=== PATIENT | female | born 1950 | race Caucasian/White ===

== ENCOUNTER 2020-01-09 15:11 | Emergency (ER) | payer MEDICARE, SELFPAY ==
[2020-01-09 15:49] VITALS: BP 145/66; PULSE 102; TEMP 37.3; O2SAT 97
--- NOTE | 2020-01-09 16:10 | ED.GENADULT ---
HPI - General Adult General Chief complaint: Animal Bite Stated complaint: animal bite Time Seen by Provider: 01/09/20 16:10 Source: patient and RN notes reviewed Mode of arrival: ambulatory Limitations: no limitations History of Present Illness HPI narrative: 70-year-old female presents with complaints of 2 cat bites/scratched to RT dorsal hand with itching, swelling, tenderness, and redness for 1 day. Cleaned area with little relief. Increase redness throughout the day. Norma says she was playing with her cat last night andit bit and scratched her RT hand. Dominant hand is RIGHT HAND. Denies tingling or numbness. Denies immobility. No exacerbating factors. No relieving factors. Denies altered sensation, back pain, neck pain, and suspected foreign body. Remains active. Tetanus vaccine last in 2017, up-to-date. Familiar with cat says shoots are up to date. The patient reports she have not been diagnosed with COVID-19. The patient reports she is not waiting for the results of a COVID-19 lab test. The patient reports she do not have fever, chills, weakness, fatigue, myalgia, or facial swelling. The patient reports she do not have a new or worsening cough or shortness of breath. Denies chest pain. The patient reports she do not have any rhinorrhea, congestion, sore throat, nausea, vomiting, abdominal pain, and diarrhea. Tolerating po intake well. Denies recent traveling. Denies concerns for COVID-19 or exposures been home since [id number] order except for essential household needs and return home. At this time, patient is not suspected of having COVID-19. Some parts of this dictation were generated by voice recognition software and may contain typographical and/or grammatical inaccuracies. Related Data Home Medications Medication Instructions Recorded Confirmed albuterol sulfate 90 mcg/actuation 2 puff INHALATION Q4H PRN gm 09/18/19 aerosol inhaler diphenoxylate-atropine 2.5 2 tablet PO QID PRN tablet 09/18/19 mg-0.025 mg tablet fluticasone 250 mcg-salmeterol 50 1 inhalation INHALATION BID 09/18/19 mcg/dose blistr powdr for inhalation gemfibrozil 600 mg tablet 600 mg PO BID 09/18/19 01/09/20 hydroxychloroquine 200 mg tablet 200 mg PO Q2D tablet 09/18/19 01/09/20 quinapril 10 mg tablet 10 mg PO DAILY 09/18/19 01/09/20 tamoxifen 20 mg tablet 20 mg PO DAILY 09/18/19 01/09/20 tizanidine 4 mg tablet 4 mg PO .hs PRN tablet 09/18/19 01/09/20 tramadol 50 mg tablet 50 mg PO Q6H PRN 09/18/19 01/09/20 pantoprazole 20 mg tablet,delayed 20 mg PO BID tablet 09/19/19 01/09/20 release gemfibrozil mg 01/09/20 Allergies Allergy/AdvReac Type Severity Reaction Status Date / Time aspirin Allergy Intermediate Swelling Verified 09/19/19 10:28 levofloxacin Allergy Intermediate Numbness Verified 09/19/19 10:28 ibuprofen Allergy Mild Rash Verified 09/19/19 10:28 meperidine Allergy Mild Itching Verified 09/19/19 10:28 oxaprozin Allergy Mild itching, Verified 09/19/19 10:28 hives ramipril Allergy Mild heart Verified 09/19/19 10:28 racing Cephalosporins Allergy Itching Verified 01/09/20 15:59 hydrocodone AdvReac Mild itching Verified 09/19/19 10:28 CILLEN'S Allergy Mild RASH Uncoded 09/19/19 10:28 Review of Systems Review of Systems: Narrative: CONSTITUTIONAL: Denies fever, chills, sweats. EYES: Denies visual changes, redness, discharge. ENT: Denies rhinorrhea, congestion, sore throat, otalgia. CARDIOVASCULAR: Denies chest pain, palpitations, edema. RESPIRATORY: Denies dyspnea, wheezing, cough. GASTROINTESTINAL: Denies abdominal pain, nausea, vomiting, diarrhea. GENITOURINARY: Denies dysuria, hematuria, abnormal discharge. SKIN: Denies rash or itching. Complains of 2 cat bites/scratched to RT dorsal hand with itching, swelling, tenderness, and redness. No drainage MUSCULOSKELETAL: Denies acute back pain, joint pain, or myalgia. NEUROLOGIC: Denies numbness or focal weakness. PSYCHIATRIC: Denies anxiety or
== END 2020-01-09 16:27 | disposition home or self-care (01) ==
PROVIDERS: Emergency Provider Nurse Practitioner Family; PCP Internal Medicine
DX: S60.511A Abrasion of right hand, initial encounter (principal); E78.00 Pure hypercholesterolemia, unspecified; M19.90 Unspecified osteoarthritis, unspecified site; J45.909 Unspecified asthma, uncomplicated; Z77.22 Contact with and (suspected) exposure to environmental tobacco smoke (acute) (chronic); Z85.3 Personal history of malignant neoplasm of breast; Z92.3 Personal history of irradiation; W55.03XA Scratched by cat, initial encounter; I10 Essential (primary) hypertension
CPT/HCPCS: 99213; G0463

== ENCOUNTER 2020-05-09 08:00 | Outpatient (CLI) | payer MEDICARE, SELFPAY ==
--- NOTE | ~2020-05-09 | US_ITS ---
EXAMINATION: US art doppler w press LE BI EXAM DATE: 05/09/2020 08:51 INDICATION: Hypertension, claudication at one block, 5 to 10 minute recovery time. TECHNIQUE: Segmental pressures and plethysmographic and Doppler waveforms of the brachial and lower e xtremity arteries were obtained. There is no prior study for comparison. FINDINGS: Right and left brachial artery pressures of 128 mm Hg and 143 mm Hg, respectively, are concordant (no rmal difference <= 30 mmHg). RIGHT LEG: The ankle-brachial index (AYAAN) is 1.04 (normal >= 0.9-1). The great toe-brachial index (TBI) is 0.99 (normal >= 0.65). The lower extremity ratios, segmental pressure gradients as follows; Proximal superficial femoral artery:- Could not obtain ( mmHg). Distal superficial femoral artery: ----- 1.01 (145 mmHg). Popliteal: 1.21 (173 mmHg). Dorsalis pedis: 1.04 (149 mmHg). Posterior tibial: 1.01 (144 mmHg). (Normal gradients <= 20-30 mmHg between adjacent levels on the same leg or the same levels on the two legs). Arterial waveforms are monophasic dorsalis pedis, otherwise biphasic. LEFT LEG: The ankle-brachial index (AYAAN) is 1.22 (normal >= 0.9-1). The great toe-brachial index (TBI) is 0.75 (normal >= 0.65). The lower extremity ratios, segmental pressure gradients as follows; Proximal superficial femoral artery:- Could not obtain ( mmHg). Distal superficial femoral artery: ----- Could not obtain ( mmHg). Popliteal: Could not obtain ( mmHg). Dorsalis pedis: 0.45 (65 mmHg). Posterior tibial: 1.22 (174 mmHg). (Normal gradients <= 20-30 mmHg between adjacent levels on the same leg or the same levels on the two legs). Arterial waveforms are monophasic dorsalis pedis, otherwise biphasic. IMPRESSION: 1. Right ankle-brachial index 1.04, normal. 2. Left ankle-brachial index 1.22, normal. 3. Evidence of moderate left dorsalis pedis arterial sclerosis. Reviewed, dictated and finalized at location A.
== END 2020-05-09 08:01 | disposition home or self-care (01) ==
PROVIDERS: PCP Internal Medicine; Visit Provider Internal Medicine
DX: I73.9 Peripheral vascular disease, unspecified (principal); M79.669 Pain in unspecified lower leg
CPT/HCPCS: 93923

== ENCOUNTER 2020-06-26 08:07 | Outpatient (CLI) | payer MEDICARE, SELFPAY ==
--- NOTE | ~2020-06-26 | MR_ITS ---
EXAMINATION: MR hip RT wo con, MR hip LT wo con DATE: 06/26/2020 10:58 INDICATION: Chronic bilateral hip pain. Right trochanteric bursitis. TECHNIQUE: 1. Magnetic resonance imaging (MRI) of the right hip was performed without intravenous contrast. Sequ ences included full-field axial of the pelvis with PD-weighted FS FSE and T1-weighted FSE, coronal of the pelvis with PD-weighted FS FSE and T2-weighted FSE , small field of view of the right hip with axial PD-weighted FS FSE, sagittal PD-weighted FS FSE, coronal PD weighted FS FSE and coronal T2-weig hted FSE . Additional radial T1-weighted FGR oriented orthogonal to the acetabular rim were obtained for evaluation of the labrum. 2. MRI of the left hip was performed without intravenous contrast. Sequences included small field of view of the left hip with axial PD-weighted FS FSE, sagittal PD-weighted FS FSE, coronal PD weighted FS FSE and coronal T2-weighted FSE . Additional radial T1-weighted FGR oriented orthogonal to the oralia tabular rim were obtained for evaluation of the labrum. COMPARISON: None FINDINGS: Bones/labrum/cartilage: Mild lumbar levoscoliosis with mild to moderate spondylosis. This includes severe bilateral facet ost eoarthritis at L5-S1 with inflammatory synovitis at the right L5-S1 facet joint. No fracture, avascul ar necrosis or pathologic marrow replacing process. At the left hip there is a delaminating tear at t he chondral labral junction extending from the 12:30 position anteriorly to the 11:00 position global professional iorly. There is secondary degenerative tearing of the more peripheral labrum. Small left acetabular m arginal osteophytes which extend into the posterolateral labrum. Mild left hip osteoarthritis with pa rtial thickness cartilage loss with smooth chondral surface resulting in mild nonuniform joint space narrowing most prominent anterosuperiorly and posteriorly. Nearly identical pattern of labral tear/de generation and mild osteoarthritis at the right hip. Fluid: Symmetric physiologic amount of fluid within both hip joints. Soft tissues: Normal and symmetric muscle bulk and signal in the pelvis and visualized proximal thighs. The bilater al iliopsoas, right proximal hamstring tendons are normal. There is mild tendinopathy without discret e tear of the proximal left hamstring tendons with small amount of fluid at their origin consistent w ith mild left ischial bursitis. There is additional small amount of fluid at the posterior superior a nd lateral facets of the right greater trochanter and to lesser degree at the lateral facet of the le ft greater trochanter consistent with bilateral gluteus medius bursitis, right greater than left. The re is mild tendinopathy without discrete tear at the left gluteus medius and bilateral gluteus minimu s tendons. Moderate tendinopathy and mild partial-thickness undersurface tear of the right gluteus me dius tendon at the lateral facet of insertion. Multiple diverticula along the sigmoid colon without a djacent inflammatory change to suggest diverticulitis. The uterus is not identified and has likely be en surgically resected. No pathologically enlarged pelvic/inguinal lymphadenopathy. IMPRESSION: 1. Bilateral mild hip osteoarthritis with associated superolateral labral tear/degeneration. 2. Mild to moderate right radius medius bursitis with moderate tendinopathy and mild partial thicknes s undersurface tear of the distal right gluteus medius tendon. Mild right gluteus minimus tendinopath y. 3. Mild left gluteus medius bursitis with mild left gluteus medius and minimus tendinopathy without d iscrete tear. 4. Mild lumbar levoscoliosis with mild to moderate spondylosis. Reviewed, dictated and finalized at location H. T ORDER COOK IMPRESSION: 1. Bilateral mild hip oste
== END 2020-06-26 08:08 | disposition home or self-care (01) ==
PROVIDERS: PCP Internal Medicine; Visit Provider Orthopaedic Surgery
DX: M70.61 Trochanteric bursitis, right hip (principal); M70.62 Trochanteric bursitis, left hip; M16.0 Bilateral primary osteoarthritis of hip
CPT/HCPCS: 73721

== ENCOUNTER 2021-06-05 11:30 | Outpatient (RCR) | payer MEDICARE, SELFPAY ==
[2021-06-05] MEDS: diphenhydrAMINE HCl CAP 25 MG CAPSULE PO (12:06)
[2021-06-05] MEDS: FAMOTIDINE 20 MG TABLET PO (12:06)
[2021-06-05] MEDS: ACETAMINOPHEN 325 MG TABLET 650 MG PO (12:06)
[2021-06-05 12:26] VITALS: BP 155/71; PULSE 87; RESP 18; TEMP 36.6; O2SAT 97
[2021-06-05 13:23] VITALS: BP 133/58
== END 2021-06-05 15:47 | disposition home or self-care (01) ==
LOC: AMCINF 11:30
PROVIDERS: PCP Physician Assistant; Referring Provider Physician Assistant; Visit Provider Internal Medicine Hematology & Oncology
DX: Z23 Encounter for immunization (principal); U07.1 COVID-19; I10 Essential (primary) hypertension
CPT/HCPCS: A9270; M0243; Q0243

== ENCOUNTER 2021-12-09 10:59 | Outpatient (CLI) | payer MEDICARE, SELFPAY ==
[2021-12-09 11:51] LABS: Appearance Urine Cloudy (Clear); Bilirubin Urine Negative (Negative); Color Urine Yellow (Yellow); Glucose Urine UA Negative (Negative); Ketones Urine Negative (Negative); Leukocyte Esterase Ur 2+ LEU/UL (Negative); Nitrate Urine Negative (Negative); Protein Urine Negative (Negative); Specific Grav Ur 1.015 (1.001-1.035); Urobilinogen Urine 0.2 mg/dL (<2.0)
[2021-12-09 12:02] LABS: Add Urine Microscopic? YES; Blood Urine Trace-Intact (Negative)
[2021-12-09 12:04] LABS: Squamous Epithelial Cell Urine Moderate /hpf (Few); WBC Urine >75 /hpf
== END 2021-12-09 11:00 | disposition home or self-care (01) ==
LOC: ANHLAB 11:02
PROVIDERS: PCP Internal Medicine; Visit Provider Internal Medicine
DX: R30.0 Dysuria (principal)
CPT/HCPCS: 81001; 87077; 87086; 87186

== ENCOUNTER 2022-08-26 14:18 | Outpatient (CLI) | payer MEDICARE, SELFPAY ==
[2022-08-26 15:31] LABS: Basophils Percent Auto 0.5 % (0.2-1.2); Eosinophils Absolute Auto 0.2 K/mm3 (0-0.3); Eosinophils Percent Auto 3.9 % (0-4.4); Hematocrit 40.2 % (37.0-47.0); Hemoglobin 13.4 g/dL (12.0-15.0); Immature Granulocyte Absolute 0.01 K/mm3 (0.00-0.031); Immature Granulocyte Percent A 0.2 % (0-0.5); Lymphocytes Absolute Auto 1.79 K/mm3 (0.9-3.2); Mean Corpuscular HGB Conc 33.3 g/dl (32-36); Mean Corpuscular Hemoglobin 29.8 pg (26-34); Mean Corpuscular Volume 89.5 fl (80-100); Mean Platelet Volume 10.7 fl (7.4-10.4); Monocytes Absolute Auto 0.7 K/mm3 (0.1-0.6); Monocytes Percent Auto 11.6 % (2.6-8.5); Neutrophils Absolute Auto 3.2 K/mm3 (1.3-6.7); Neutrophils Percent Auto 53.8 % (45.5-73.1); Platelet Count Result 234 k/mm3 (150-375); Red Blood Count 4.49 M/mm3 (4.2-5.4); Red Cell Distribution Width 13.7 % (11.5-14.5)
[2022-08-26 15:44] LABS: Alanine Aminotransferase 33 U/L (6-35); Albumin Level 4.1 g/dL (3.5-5.1); Alkaline Phosphatase 93 U/L (38-126); Anion Gap 8 mmol/L (8-16); Aspartate Amino Transferase 34 U/L (14-36); Bilirubin,Total 0.4 mg/dL (0.2-1.3); Blood Urea Nitrogen 17 mg/dL (7-17); Calcium 9.1 mg/dL (8.4-10.2); Carbon Dioxide 29 mmol/L (22-30); Chloride 104 mmol/L (98-107); Estimated Glomerular Filt Rate > 60; Glucose 119 mg/dL (65-110); Potassium 3.7 mmol/L (3.4-5.0); Sodium 141 mmol/L (137-145)
[2022-08-26 16:48] LABS: Folic Acid > 20.0 ng/mL (2.76->20)
[2022-08-26 21:35] LABS: T4 Thyroxine 7.35 ug/dL (5.53-11.0)
== END 2022-08-26 14:19 | disposition home or self-care (01) ==
PROVIDERS: PCP Internal Medicine; Visit Provider Psychiatry & Neurology Neurology
DX: M25.551 Pain in right hip (principal); M25.552 Pain in left hip; R30.0 Dysuria; I10 Essential (primary) hypertension
CPT/HCPCS: 36415; 80053; 82607; 82746; 84436; 85025

== ENCOUNTER → 2022-09-15 14:11 | Outpatient (CLI) | payer MEDICARE, SELFPAY ==
--- NOTE | ~2022-09-15 | MR_ITS ---
EXAMINATION: MR lumbar spine wo con DATE: 09/15/2022 14:47 INDICATION: Low back pain. Right leg numbness. TECHNIQUE: Magnetic resonance imaging (MRI) of the lumbar spine was performed without intravenous con trast. Sequences included sagittal T2-weighted FSE, sagittal T2-weighted FS FSE, sagittal T1-weighted FSE, and axial T2-weighted FSE. COMPARISON: Lumbar spine MRI 10/10/2017 FINDINGS: There is 7 degrees levocurvature of lumbar spine. Vertebral body heights are normal. There is mildly decreased disc height at L2-L3, L3-L4, and L4-L5. The distal spinal cord signal intensity i s normal. The conus medullaris is at T12-L1. The following disc levels are specifically discussed: T12-L1: There is a central extrusion. There is mild bilateral facet joint osteoarthritis. There is no neural foraminal stenosis. There is mild central canal stenosis. L1-L2: There is a central protrusion. There is mild bilateral facet joint osteoarthritis. There is no neural foraminal stenosis. There is no central canal stenosis. L2-L3: The disc is bulging and has an annular fissure. There is severe right and mild left facet join t osteoarthritis. There is mild bilateral neural foraminal stenosis. There is mild central canal sten osis. L3-L4: The disc is bulging and has an annular fissure. There is mild bilateral facet joint osteoarthr itis. There is mild bilateral neural foraminal stenosis. There is mild central canal stenosis. L4-L5: The disc is bulging and has an annular fissure. There is severe right and moderate left facet joint osteoarthritis. There is mild bilateral neural foraminal stenosis. There is mild central canal stenosis. L5-S1: The disc is bulging and has an annular fissure. There is moderate right and severe left facet joint osteoarthritis. There is mild bilateral neural foraminal stenosis. There is no central canal st enosis. IMPRESSION: 1. Mild lumbar spondylosis, stable from 10/10/2017. Reviewed, dictated and finalized at location A. ORMANCE IMPROVEMENT ANALYST
== END ==
PROVIDERS: PCP Internal Medicine; Visit Provider Psychiatry & Neurology Neurology
DX: M47.896 Other spondylosis, lumbar region (principal)
CPT/HCPCS: 72148

== ENCOUNTER 2022-09-29 11:15 | Outpatient (CLI) | payer MEDICARE, SELFPAY ==
--- NOTE | ~2022-09-29 | XR_ITS ---
XR shoulder RT min 2V 09/29/2022 11:38 Indication: Right shoulder pain. Procedure: 4 views right shoulder Comparison: No prior studies for comparison. Findings: There is polyarticular osteoarthritis of the right shoulder. Osteopenia. No acute fracture or traumatic malalignment. No significant soft tissue abnormality. No foreign bodies. Impression: 1: Polyarticular osteoarthritis of the right shoulder. Reviewed, dictated and finalized at location B. S Impression: 1: Polyarticular osteoarthritis of the right shoulder.
== END 2022-09-29 11:16 | disposition home or self-care (01) ==
LOC: ANHIMG 11:17
PROVIDERS: PCP Internal Medicine; Visit Provider Internal Medicine
DX: M19.011 Primary osteoarthritis, right shoulder (principal)
CPT/HCPCS: 73030

== ENCOUNTER 2022-10-27 10:01 | Outpatient (CLI) | payer MEDICARE, SELFPAY ==
--- NOTE | 2022-10-27 11:00 | NEURO_ITS ---
Impression: # Complains of lower back pain. # No responses from left peroneal nerve. # Needle/EMG exam revealed decreased motor unit potentials on left. # Clinical correlation recommended; Possibility of higher involvement needs to be ruled out. Motor Nerve Conduction Lower Extremities Peroneal Nerve Conduction Velocity (m/sec) Terminal Latency (msec) Response Voltage(mV) Popliteal space-Ankle Ankle Extensor Dig Brevis Popliteal space Ankle Right 41 4.8 2 2 Left NR NR NR NR Tibial Nerve Conduction Velocity (m/sec) Terminal Latency (msec) Response Voltage(mV) Popliteal space-Ankle Ankle-Extensor Dig Brevis Popliteal space Ankle Right 44 4.5 1 1 Left 43 4.8 3 2 F-waves Peroneal Nerve (ms) Tibial Nerve (ms) Right 57.3 57.1 Left 58.4 58.8 Right Lateral Plantar = 4.2ms Left Lateral Plantar = 4.5ms Sensory Nerve Conduction Lower Extremities Sural Nerve Stimulation Terminal Latency (msec) Ankle Response Voltage (uV) Ankle Response Velocity (m/sec) Right 3.7 13 43 Left 3.4 4 47 Superficial Peroneal Nerve Stimulation Terminal Latency (msec) Ankle Response Voltage (uV) Ankle Response Velocity (m/sec) Right 3.5 7 46 Left 3.5 4 48 Left Right Muscles Examined Fibrillation Fasciculation Scarcity Voltage Duration Left Right Left Right Left Right Left Right Left Right X X Ant Tibialis X X Gastroc X X Fibularis Long X X Flex Dig Long X X Ext Dig Brev Abd Hallucis Quadriceps Paraspinals MTDD
== END 2022-10-27 10:02 | disposition home or self-care (01) ==
LOC: ANHNEURO 10:02
PROVIDERS: PCP Internal Medicine; Visit Provider Psychiatry & Neurology Neurology
DX: M54.9 Dorsalgia, unspecified (principal)
CPT/HCPCS: 95886; 95911

== ENCOUNTER 2023-01-18 08:58 | Outpatient (CLI) | payer MEDICARE, SELFPAY ==
--- NOTE | 2023-01-18 11:00 | NEURO_ITS ---
Impression: # Complains of left hand numbness with decreasing strength. # Left ulnar neuropathy around the elbow. # Normal needle/EMG exam. Nerve Conduction Studies Anti Sensory Summary Table Stim Site NR Peak (ms) P-T Amp (?V) Site1 Site2 Delta-P (ms) Dist (cm) Daniel (m/s) Left Median Anti Sensory (2-3nd Digit) Wrist 3.3 67.4 Wrist 2-3nd Digit 3.3 14.0 42 Wrist 3.2 89.8 Wrist 2-3nd Digit 3.3 14.0 42 Left Radial Anti Sensory (Base 1st Digit) Wrist 2.0 23.3 Wrist Base 1st Digit 2.0 0.0 Left Ulnar Anti Sensory (5th Digit) Wrist 2.4 41.5 Wrist 5th Digit 2.4 14.0 58 Motor Summary Table Stim Site NR Onset (ms) O-P Amp (mV) Site1 Site2 Delta-0 (ms) Dist (cm) Daniel (m/s) Left Median Motor (Abd Poll Brev) Wrist 3.3 2.2 Elbow Wrist 4.7 27.0 57 Elbow 8.0 1.8 Left Ulnar Motor (Abd Dig Minimi) Wrist 2.3 6.2 A Elbow Wrist 5.7 29.0 51 A Elbow 8.0 2.8 B Elbow Wrist 4.0 20.0 50 B Elbow 6.3 4.0 F Wave Studies NR F-Lat (ms) L-R F-Lat (ms) Left Median (Mrkrs) (Abd Poll Brev) 28.01 Left Ulnar (Mrkrs) (Abd Dig Min) 28.01 EMG Side Muscle Nerve Root Ins Act Fibs Amp Dur Recrt Comment Left 1stDorInt Ulnar C8-T1 Nml Nml Nml Nml Nml Left Ext Indicis Radial (Post Int) C7-8 Nml Nml Nml Nml Nml Left Ext Digitorum Radial (Post Int) C7-8 Nml Nml Nml Nml Nml Left BrachioRad Radial C5-6 Nml Nml Nml Nml Nml Left PronatorTeres Median C6-7 Nml Nml Nml Nml Nml Left Abd Poll Brev Median C8-T1 Nml Nml Nml Nml Nml Left ABD Dig Min Ulnar C8-T1 Nml Nml Nml Nml Nml MTDD
== END 2023-01-18 08:59 | disposition home or self-care (01) ==
PROVIDERS: PCP Internal Medicine; Referring Provider Student in an Organized Health Care Education/Training Program
DX: G56.02 Carpal tunnel syndrome, left upper limb (principal); M25.551 Pain in right hip; M25.552 Pain in left hip
CPT/HCPCS: 36415; 82728; 95886; 95909

== ENCOUNTER 2023-04-08 09:53 | Outpatient (CLI) | payer MEDICARE, SELFPAY ==
--- NOTE | ~2023-04-08 | XR_ITS ---
Left Knee Technique: AP, lateral, and sunrise views were obtained. Clinical History: Osteoarthritis Findings: No fracture or dislocation is seen. Osseous alignment is anatomic. There is degenerative sp urring at the medial joint line. Soft tissues are unremarkable. No joint effusion is seen. Impression: Degenerative spurring at the medial joint line. Reviewed, dictated and finalized at location . Impression: Degenerative spurring at the medial joint line.
--- NOTE | ~2023-04-08 | XR_ITS ---
Right Knee Technique: AP, lateral, and sunrise views were obtained. Clinical History: Posterior arthritis Findings: No fracture or dislocation is seen. Osseous alignment is anatomic. There is mild spurring a t the medial joint line. Soft tissues are unremarkable. No joint effusion is seen. Impression: Mild spurring at the medial joint line. Reviewed, dictated and finalized at location . Impression: Mild spurring at the medial joint line.
== END 2023-04-08 09:54 | disposition home or self-care (01) ==
LOC: ANHIMG 09:57
PROVIDERS: PCP Internal Medicine; Visit Provider Orthopaedic Surgery
DX: M17.0 Bilateral primary osteoarthritis of knee (principal)
CPT/HCPCS: 73564

== ENCOUNTER 2023-06-13 14:59 | Outpatient (CLI) | payer MEDICARE, SELFPAY ==
--- NOTE | ~2023-06-13 | CT_ITS ---
Non-contrast Head CT History: Headache Technique: Axial non-contrast imaging of the brain was performed. Dose reduction technique was used on this scan by utilizing automated exposure control and iterative reconstruction technique. The dose -length product (DLP) was 529.67 mGy-cm. Findings: There is no evidence of intracranial hemorrhage, mass lesion, or acute infarct. Brain par enchyma appears normal. The ventricles and subarachnoid spaces are normal in size. The calvarium ap pears normal. The visualized paranasal sinuses and mastoid air cells are clear. Impression: No significant abnormality seen. Reviewed, dictated and finalized at location . SPORT ENGINEER Impression: No significant abnormality seen.
== END 2023-06-13 15:00 | disposition home or self-care (01) ==
LOC: ANHIMG 15:01
PROVIDERS: PCP Internal Medicine; Visit Provider Physician Assistant
DX: R51.9 Headache, unspecified (principal)
CPT/HCPCS: 70450

== ENCOUNTER 2023-08-12 14:59 | Outpatient (CLI) | payer MEDICARE, SELFPAY ==
--- NOTE | ~2023-08-12 | XR_ITS ---
XR wrist LT min 3V DATE: 08/12/2023 15:20 INDICATION: Swelling and pain around the scaphoid TECHNIQUE: 4 views COMPARISON: None FINDINGS: There is mild small focal cortical irregularity/indentation of the distal lateral aspect of the scaphoid bone, which is most likely chronic. A subtle recent fracture is not excluded. If there is concern for scaphoid fracture Comment consider CT or MR breast examination. Otherwise no fracture or dislocation is detected. There is osteopenia. There is mild osteoarthritis at the first carpometacarpal and several metacarpophalangeal joints IMPRESSION: Mild small focal cortical irregularity at distal lateral aspect of navicular bone; if the re is concern for recent fracture, consider CT or MR evaluation Osteopenia Mild polyarticular osteoarthritis Reviewed, dictated and finalized at location B. T MINISTRIES DIRECTOR IMPRESSION: Mild small focal cortical irregularity at distal lateral aspect of navicular bone; if there is concern for recent fracture, consider CT or MR eval uation Osteopenia Mild polyarticular osteoarthritis
== END 2023-08-12 15:00 | disposition home or self-care (01) ==
LOC: ANHIMG 15:03
PROVIDERS: PCP Internal Medicine; Visit Provider Physician Assistant
DX: M79.89 Other specified soft tissue disorders (principal); M89.9 Disorder of bone, unspecified; M85.88 Other specified disorders of bone density and structure, other site; M19.032 Primary osteoarthritis, left wrist
CPT/HCPCS: 73110

== ENCOUNTER 2023-09-14 10:11 | Emergency (ER) | payer MEDICARE, SELFPAY ==
[2023-09-14 10:24] VITALS: BP 150/69; PULSE 87; RESP 16; TEMP 37.2; O2SAT 97
--- NOTE | 2023-09-14 10:29 | ED.URI ---
HPI - URI/Sore Throat General Chief Complaint: Upper Respiratory Infection Stated Complaint: Sore Throat Time Seen by Provider: 09/14/23 10:30 Source: patient Mode of arrival: ambulatory Limitations: no limitations History of Present Illness HPI Narrative: 73-year-old female presents with complaint of sore throat, postnasal drainage, congestion, mild cough starting yesterday. Afebrile. No chest pain or shortness of breath. Denies nausea vomiting diarrhea. Taking Robitussin to treat cough. All systems reviewed and negative except as noted above. Related Data Home Medications Medication Instructions Recorded Confirmed hydroxychloroquine 200 mg tablet 200 mg PO Q2D 09/18/19 09/14/23 gemfibrozil 600 mg tablet (Lopid) 600 mg PO BID 11/04/22 09/14/23 nitrofurantoin macrocrystal 100 mg 100 mg PO Q12H 06/08/23 09/14/23 capsule Allergies Allergy/AdvReac Type Severity Reaction Status Date / Time aspirin Allergy Intermediate Swelling Verified 09/14/23 10:40 levofloxacin Allergy Intermediate Numbness Verified 09/14/23 10:40 ibuprofen Allergy Mild Rash Verified 09/14/23 10:40 meperidine Allergy Mild Itching Verified 09/14/23 10:40 oxaprozin Allergy Mild itching, Verified 09/14/23 10:40 hives ramipril Allergy Mild heart Verified 09/14/23 10:40 racing Cephalosporins Allergy Itching Verified 09/14/23 10:40 hydrocodone AdvReac Mild itching Verified 09/14/23 10:40 CILLEN'S Allergy Mild RASH Uncoded 09/14/23 10:40 Review of Systems Review of Systems: CONSTITUTIONAL: Denies fever, chills, or sweats. EYES: Denies visual changes, redness, or discharge. ENT: Reports rhinorrhea, congestion, sore throat. Denies otalgia. CARDIOVASCULAR: Denies chest pain, palpitations, or edema. RESPIRATORY reports cough . Denies dyspnea. GASTROINTESTINAL: Denies abdominal pain, nausea, vomiting, or diarrhea. GENITOURINARY: Denies dysuria or hematuria. SKIN: Denies rash or itching. MUSCULOSKELETAL: Denies back pain, joint pain, or myalgia. NEUROLOGIC: Denies headache, numbness, or weakness. PSYCHIATRIC: Denies anxiety or depression. All other systems reviewed are negative, except as documented in HPI. [facility] Past Medical History Medical History Breast cancer RT breast received radiation History of tennis elbow History of trigger finger thumb - surgery Hyperglycemia Hypertension Lymph edema LEWIS (nonalcoholic steatohepatitis) Other dorsalgia Plantar fasciitis Primary osteoarthritis of left hip Primary osteoarthritis of right knee Pure hypercholesterolemia Rheumatoid arthritis Unspecified asthma, uncomplicated Unspecified cirrhosis of liver Surgical History Surgical History History of appendectomy History of back surgery History of bladder repair surgery History of carpal tunnel surgery History of cholecystectomy History of hernia repair History of hysterectomy History of lumpectomy of right breast Hx of laminectomy Family History Family History Father Diabetes mellitus Mother Hypertension Cancer of kidney Social History Social History Smoking status: Never smoker Tobacco type: cigarettes Second hand tobacco smoke exposure: Yes Alcohol intake: former Substance use: never Substance use type: does not use Lack of Transportation: No Lack of Food: Never True Current Housing: I Have Housing Concerned About Future Housing: No Difficulty Paying Gas/Electric Bills: No Difficulty Paying for Meds: No Currently Unemployed: No Education: High School Diploma/GED Difficulty w/ Childcare or Family Care: No Living arrangements: with family Occupation/Education: retired Gender identity (if verbalized by the patient): Female Spiritual care c
[2023-09-14 10:42] VITALS: BP 150/69; PULSE 87; RESP 16; TEMP 37.2; O2SAT 97
== END 2023-09-14 10:50 | disposition home or self-care (01) ==
PROVIDERS: Emergency Provider Nurse Practitioner Family; PCP Internal Medicine
DX: J06.9 Acute upper respiratory infection, unspecified (principal); R05.9 Cough, unspecified; Z20.822 Contact with and (suspected) exposure to COVID-19; I10 Essential (primary) hypertension; K75.81 Nonalcoholic steatohepatitis (NASH); M16.12 Unilateral primary osteoarthritis, left hip; M17.11 Unilateral primary osteoarthritis, right knee; E78.00 Pure hypercholesterolemia, unspecified; M06.9 Rheumatoid arthritis, unspecified; K74.60 Unspecified cirrhosis of liver; Z85.3 Personal history of malignant neoplasm of breast; Z90.11 Acquired absence of right breast and nipple; Z92.3 Personal history of irradiation
CPT/HCPCS: 87081; 87426; 87804; 87880; 99213; G0463

== ENCOUNTER 2023-12-14 08:50 | Outpatient (CLI) | payer MEDICARE, SELFPAY ==
--- NOTE | ~2023-12-14 | XR_ITS ---
EXAMINATION: XR hip BI 2V w AP pelvis DATE: 12/14/2023 09:28 INDICATION: Trochanteric bursitis. TECHNIQUE: An anteroposterior view of the pelvis on 2 radiographs and 2 views of each hip were obtain ed. COMPARISON: Pelvis and hip radiographs 11/04/2022 FINDINGS: There is lumbar levocurvature and severe spondylosis. No fracture. There is mild osteoarthr itis of the hips. IMPRESSION: 1. Mild osteoarthritis of the hips. Reviewed, dictated and finalized at location A.
[2023-12-14 10:03] LABS: Basophils Percent Auto 0.3 % (0.2-1.2); Eosinophils Absolute Auto 0.2 K/mm3 (0-0.3); Eosinophils Percent Auto 3.2 % (0-4.4); Hematocrit 39.2 % (37.0-47.0); Hemoglobin 13.2 g/dL (12.0-15.0); Immature Granulocyte Absolute 0.02 K/mm3 (0.00-0.031); Immature Granulocyte Percent A 0.3 % (0-0.5); Lymphocytes Percent Auto 23.9 % (18.3-44.2); Mean Corpuscular HGB Conc 33.7 g/dl (32-36); Mean Corpuscular Hemoglobin 30.1 pg (26-34); Mean Corpuscular Volume 89.3 fl (80-100); Mean Platelet Volume 10.3 fl (7.4-10.4); Monocytes Absolute Auto 0.5 K/mm3 (0.1-0.6); Monocytes Percent Auto 8.3 % (2.6-8.5); Platelet Count Result 236 k/mm3 (150-375); Red Blood Count 4.39 M/mm3 (4.2-5.4); Red Cell Distribution Width 12.5 % (11.5-14.5); White Blood Count 6.3 K/mm3 (4.5-10.0)
[2023-12-14 10:20] LABS: Cholesterol 139 mg/dL (0-200); HDL Direct 50 mg/dL; Triglycerides 123 mg/dL (<150)
[2023-12-14 10:23] LABS: Alanine Aminotransferase 32 U/L (6-35); Albumin Level 4.3 g/dL (3.5-5.1); Alkaline Phosphatase 97 U/L (38-126); Anion Gap 8 mmol/L (4-12); Aspartate Amino Transferase 30 U/L (14-36); Bilirubin,Total 0.4 mg/dL (0.2-1.3); Blood Urea Nitrogen 22 mg/dL (7-17); Calcium 10.2 mg/dL (8.4-10.2); Carbon Dioxide 27 mmol/L (22-30); Chloride 105 mmol/L (98-107); Estimated Glomerular Filt Rate > 60; Glucose 116 mg/dL (65-110); Potassium 4.2 mmol/L (3.4-5.0); Sodium 140 mmol/L (137-145)
[2023-12-14 10:31] LABS: LDL Cholesterol Direct 74 mg/dL
[2023-12-14 11:10] LABS: Vitamin B12 > 1000.0 pg/mL (239-931)
[2023-12-14 11:27] LABS: Hemoglobin A1C 5.8 % (<5.7)
[2023-12-17 15:23] LABS: Vitamin B1 7 nmol/L (8-30)
[2023-12-17 16:44] LABS: Vitamin B6 38.5 ng/mL (2.1-21.7)
[2023-12-19 19:49] LABS: Immunofixation, Serum Normal pattern.
== END 2023-12-14 08:51 | disposition home or self-care (01) ==
LOC: ANHIMG 08:57
PROVIDERS: Internal Medicine; PCP Internal Medicine; Referring Provider Student in an Organized Health Care Education/Training Program; Visit Provider Orthopaedic Surgery
DX: G62.9 Polyneuropathy, unspecified (principal); R73.9 Hyperglycemia, unspecified; M06.9 Rheumatoid arthritis, unspecified; K75.81 Nonalcoholic steatohepatitis (NASH); I10 Essential (primary) hypertension; E78.5 Hyperlipidemia, unspecified; E03.9 Hypothyroidism, unspecified; M70.61 Trochanteric bursitis, right hip; M16.0 Bilateral primary osteoarthritis of hip
CPT/HCPCS: 36415; 73521; 80053; 80061; 82607; 83036; 84207; 84425; 85025; 86334; 86335

== ENCOUNTER 2023-12-28 15:20 | Outpatient (CLI) | payer MEDICARE, SELFPAY ==
--- NOTE | ~2023-12-28 | MR_ITS ---
EXAMINATION: MR hip RT wo con, MR hip LT wo con DATE: 12/28/2023 17:23 INDICATION: Bilateral hip osteoarthritis and trochanteric bursitis presenting with bilateral hip pain TECHNIQUE: 1. Magnetic resonance imaging (MRI) of the right hip was performed without intravenous contrast. Sequ ences included full-field axial PD-weighted FS FSE and T1-weighted FSE, coronal of the pelvis with PD -weighted FS FSE, T2-weighted FSE and T1-weighted FSE, small field of view of the right hip with axi al PD-weighted FS FSE, sagittal PD-weighted FS FSE, coronal PD-weighted FS FSE and coronal T2 weight ed FSE. Additional radial T1-weighted FGR oriented orthogonal to the acetabular rim were obtained for evaluation of the labrum. 2. MRI of the left hip was performed without intravenous contrast. Sequences included small field of view of the left hip with axial PD-weighted FS FSE, sagittal PD-weighted FS FSE, coronal PD-weighted FS FSE and coronal T2 weighted FSE. Additional radial T1-weighted FGR oriented orthogonal to the ac etabular rim were obtained for evaluation of the labrum. COMPARISON: None FINDINGS: Bones/labrum/cartilage: Mild lumbar levocurvature with moderate spondylosis. No fracture, avascular necrosis or pathologic m arrow replacing process. Mild bilateral hip osteoarthritis with mild nonuniform partial-thickness car tilage loss without degenerative subchondral changes most prominent posteriorly. There is also chroni c bilateral labral degeneration with small to moderate size marginal ossified swelling the bilateral acetabular rims replacing significant portion of the labral tissue most prominent at the lateral and posterior superiorly. Fluid: Symmetric physiologic amount of fluid within both hip joints. Soft tissues: Proximal left hamstring tendons are normal. Chronic partial tear of the right semimembranosus tendon which appears significantly smaller in caliber than the contralateral left semimembranosus tendon. Co mplete tear and distal retraction of the conjoined origin of the right biceps femoris and semitendino pedro luis tendons. There is no surrounding edema consistent with chronic injuries. Retracted tear margin ap pears to be positioned approximately 9 cm below the ischial tuberosity on the large oxydj-je-uhli cor onal images of the pelvis. There appears be associated fatty atrophy of the visualized portions of th e left-sided hamstring muscles at the caudal margin of the field of imaging. Otherwise symmetric musc le bulk and signal in the pelvis and visualized proximal thighs. The bilateral iliopsoas tendons are normal. Mild tendinopathy without tear at the left gluteus medius medius and minimus tendons without discrete tear. There is minimal associated left trochanteric bursitis. Moderate right gluteus medius medius and minimus tendinopathy with small enthesophytes at the greater trochanteric insertions witho ut discrete tear. There is mild associated right-sided gluteus medias, gluteus minimus and trochanter ic bursitis. Mild sigmoid diverticulosis. The uterus is not identified and has likely been surgically resected. Limited evaluation of visceral organs of the pelvis is otherwise unremarkable. No patholo gically enlarged pelvic/inguinal lymphadenopathy. IMPRESSION: 1. Relatively symmetric mild bilateral hip osteoarthritis with chronic labral degeneration. 2. Mild gluteus medius and minimus tendinopathy and minimal trochanteric bursitis on the left. Mild t o moderate gluteus medius and minimus tendinopathy and mild increased emesis, gluteus medius and troc hanteric bursitis on the right. 3. Chronic tears at the right ischial tuberosity origins of the semimembranosus tendon (partial) and of the conjoined biceps femoris/semitendinosus tendon (complete) with 9 cm distal retraction. 4. Mild lumbar levocurvature with moderate spondylosis. Reviewed, dictated and final
== END 2023-12-28 15:21 | disposition home or self-care (01) ==
LOC: ANHIMG 15:22
PROVIDERS: PCP Internal Medicine; Visit Provider Orthopaedic Surgery
DX: M70.61 Trochanteric bursitis, right hip (principal); M70.62 Trochanteric bursitis, left hip; M16.0 Bilateral primary osteoarthritis of hip; M76.02 Gluteal tendinitis, left hip; M76.01 Gluteal tendinitis, right hip; S46.811A Strain of other muscles, fascia and tendons at shoulder and upper arm level, right arm, initial encounter; M43.8X6 Other specified deforming dorsopathies, lumbar region; M43.06 Spondylolysis, lumbar region; X58.XXXA Exposure to other specified factors, initial encounter
CPT/HCPCS: 73721

== ENCOUNTER 2024-01-19 08:56 | Outpatient (CLI) | payer MEDICARE, SELFPAY ==
--- NOTE | 2024-01-19 10:45 | NEURO_ITS ---
Clinical note: Paresthesias in both upper limbs left more than right side. Patient has had surgery for carpal tunnel syndrome on the right side long ago. Also history of rheumatoid arthritis. Summary of findings: 1. Left and right motor distal latency amplitude conduction velocity normal limits. However left median motor distal is a mildly prolonged compared to the left ulnar motor distal latency. Ulnar palmar sensory distal latencies are within acceptable normal limits however left median palmar sensory did distal resume borderline prolonged compared to the ulnar distal latency. However left median digital sensory distal latencies were mildly prolonged compared to the ulnar distal latency adjusted for the length. Right median digital sensory distal latency is also mildly prolonged. Bilateral radial sensory distal latency and amplitudes within normal limits. 2. Bilateral median motor distal latency were normal, amplitudes of moderately decreased on the left and normal on the right side, and conduction velocities were within acceptable normal limits however left median motor distal latency was mildly prolonged compared to ulnar motor distal latency. 3. Bilateral ulnar motor distal latency amplitude and conduction velocity was normal limits. No focal slowing was seen across elbow. 4. EMG and nerve conduction study were performed on both upper limbs. No denervation changes were seen. Mild loss of motor any in a to could was noted in abductor pollicis brevis on both sides. Impression: 1. Mild left and possible minimal right carpal tunnel syndrome. In view of the surgery for right carpal tunnel syndrome in the past, clinical correlation is recommended for residual versus recurrence of the same. 2. Remainder of the study is considered within acceptable normal limits. There is no evidence for ulnar neuropathy or cervical radiculopathy at this time. Please feel free to call me if any questions with regard to study. Felicia Blcak MD, FAAN, FAANEM Neurology / Electrodiagnostic medicine Nerve Conduction Studies Anti Sensory Summary Table Stim Site NR Onset (ms) Peak (ms) P-T Amp (?V) Site1 Site2 Delta-0 (ms) Dist (mm) Daniel (m/s) Left Median DIII Anti Sensory (3rd Digit) Wrist 3.1 4.0 20.3 Wrist 3rd Digit 3.1 160 52 Right Median DIII Anti Sensory (3rd Digit) Wrist 2.8 3.5 24.3 Wrist 3rd Digit 2.8 130 46 Left Radial Anti Sensory (Base 1st Digit) Wrist 1.5 2.0 35.4 Wrist Base 1st Digit 1.5 80 53 Right Radial Anti Sensory (Base 1st Digit) Wrist 1.3 1.8 30.0 Wrist Base 1st Digit 1.3 80 Left Ulnar Anti Sensory (5th Digit) Wrist 2.8 3.3 35.2 Wrist 5th Digit 2.8 145 52 Right Ulnar Anti Sensory (5th Digit) Wrist 2.1 3.0 15.0 Wrist 5th Digit 2.1 130 62 Motor Summary Table Stim Site NR Onset (ms) O-P Amp (mV) Site1 Site2 Delta-0 (ms) Dist (mm) Daniel (m/s) Left Median Motor (Abd Poll Brev) Wrist 4.1 4.7 Wrist Wrist 0.0 80 Elbow 8.2 4.2 Wrist Elbow 4.1 215 52 Right Median Motor (Abd Poll Brev) Wrist 3.7 6.1 Wrist Wrist 0.0 80 Elbow 7.4 5.8 Wrist Elbow 3.7 210 57 Left Ulnar Motor (Abd Dig Minimi) Wrist 2.6 7.8 Wrist Wrist 0.0 80 B Elbow 5.9 7.5 B Elbow Wrist 3.3 170 52 A Elbow 7.1 7.3 A Elbow B Elbow 1.2 70 58 Right Ulnar Motor (Abd Dig Minimi) Wrist 2.4 9.7 Wrist Wrist 0.0 80 B Elbow 5.8 8.9 B Elbow Wrist 3.4 185 54 A Elbow 7.0 8.4 A Elbow B Elbow 1.2 70 58 Comparison Summary Table Stim Site NR Onset (ms) Peak (ms) P-T Amp (?V) Site1 Site2 Daniel (m/s) Dist (mm) Left Median/Ulnar Palm Comparison (Wrist
== END 2024-01-19 08:57 | disposition home or self-care (01) ==
LOC: ANHNEURO 08:57
PROVIDERS: PCP Internal Medicine; Visit Provider Student in an Organized Health Care Education/Training Program
DX: G56.02 Carpal tunnel syndrome, left upper limb (principal); M06.9 Rheumatoid arthritis, unspecified
CPT/HCPCS: 95886; 95911

== ENCOUNTER 2024-02-23 07:23 | Outpatient (CLI) | payer MEDICARE, SELFPAY ==
--- NOTE | ~2024-02-23 | MR_ITS ---
MRI of the cervical spine Clinical History: Radiculopathy Technique: Axial T2-weighted and gradient images, and sagittal T1-weighted, T2-weighted, and STIR ender ges were acquired. Findings: There is no fracture or subluxation of the cervical spine. Vertebral bodies maintain normal height and alignment. No suspicious bone marrow signal abnormality seen. At C2-C3, there is no disc bulge or herniation. No spinal canal stenosis, cord compression, or neural foraminal narrowing. At C3-C4, there is no disc bulge or herniation. No spinal canal stenosis, cord compression, or neural foraminal narrowing. At C4-C5, there is minimal disc bulge. No spinal canal stenosis, cord compression, or neural foramina l narrowing. At C5-C6, there is mild degenerative disc narrowing with minimal with minimal disc bulge. No spinal c anal stenosis or cord compression. There is left neural foraminal narrowing. Right neural foramen pre served. At C6-C7, there is moderate degenerative disc narrowing. There is minimal disc bulge. There is probab le bilateral neural foraminal narrowing, left worse than right. No abnormal signal seen in the spinal cord. Paravertebral soft tissues are unremarkable. Impression: Moderate degenerative spondylosis overall, as detailed above, with neural foraminal narrowing at C5-C 6 and C6-C7. Reviewed, dictated and finalized at [facility]. Impression: Moderate degenerative spondylosis overall, as detailed above, with neural alpa inal narrowing at C5-C6 and C6-C7.
--- NOTE | ~2024-02-23 | CT_ITS ---
CT ANGIOGRAM NECK AND HEAD History: Dizziness and giddiness. Technique: Axial noncontrast imaging of the brain was performed. Serial spiral axial images through t he head and neck were then obtained during arterial phase IV injection of 100 cc of Omnipaque 350. 3- D postprocessing and MIP images were then reconstructed on the remote workstation. Dose reduction ave hnique was used on this scan by utilizing automated exposure control and iterative reconstruction ave hnique. The dose-length product (DLP) was 1462.79 mGy-cm. CTA neck findings: Left vertebral is patent with a probable focal high-grade stenosis related to hortensia cified plaque at the distal left vertebral artery. Right vertebral artery is patent, relatively hypop lastic, and probably terminates as the right PICA, a normal variant. Bilateral common carotid, internal auditor al carotid, and external carotid arteries are patent. No large vessel occlusion. There is calcified p laque at the origin of the right internal carotid artery with probable focal 50% stenosis. There is c alcified plaque at the origin of the left internal carotid artery, without stenosis. No aneurysm seen . The proximal right internal carotid artery demonstrates 50% stenosis relative to the normal distal artery lumen diameter. The proximal left internal carotid artery demonstrates 0% stenosis relative to the normal distal artery lumen diameter. CTA head findings: Basilar artery and posterior cerebral arteries are patent. Distal internal carotid arteries, middle cerebral arteries, and anterior cerebral arteries are patent. No large vessel occlu alma. No stenosis identified. No aneurysm seen. Axial noncontrast imaging of the brain is unremarkable. No acute infarct, intracranial hemorrhage, or mass lesion seen. Quezada-white differentiation preserved. No mass effect or midline shift. The ventric les and subarachnoid spaces are unremarkable. Paranasal sinuses and mastoid air cells are clear. Calv arium intact. Impression: Focal 50% stenosis at the origin of the right internal carotid artery due to calcified plaque. Focal high-grade stenosis of the distal left vertebral artery related to calcified plaque. Reviewed, dictated and finalized at location . Impression: Focal 50% stenosis at the origin of the right internal carotid artery due to ca lcified plaque. Focal high-grade stenosis of the distal left vertebral artery related to calcif ied plaque.
[2024-02-23 08:10] LABS: Estimated Glomerular Filt Rate > 60
== END 2024-02-23 07:24 | disposition home or self-care (01) ==
PROVIDERS: PCP Internal Medicine; Visit Provider Student in an Organized Health Care Education/Training Program
DX: I65.21 Occlusion and stenosis of right carotid artery (principal); I65.02 Occlusion and stenosis of left vertebral artery; M47.892 Other spondylosis, cervical region; M48.02 Spinal stenosis, cervical region
CPT/HCPCS: 70496; 70498; 72141; Q9967

== ENCOUNTER 2024-03-21 15:10 | Outpatient (CLI) | payer MEDICARE, SELFPAY ==
[2024-03-21 15:55] LABS: Anion Gap 7 mmol/L (4-12); Blood Urea Nitrogen 18 mg/dL (7-17); Calcium 9.6 mg/dL (8.4-10.2); Carbon Dioxide 29 mmol/L (22-30); Chloride 102 mmol/L (98-107); Estimated Glomerular Filt Rate > 60; Glucose 111 mg/dL (65-110); Potassium 3.9 mmol/L (3.4-5.0); Sodium 138 mmol/L (137-145)
[2024-03-21 15:57] LABS: Prothrombin Time 13.4 Seconds (11.1-14.7)
[2024-03-21 15:58] LABS: Partial Thromboplastin Time 24.1 Seconds (22.3-36.8)
== END 2024-03-21 15:11 | disposition home or self-care (01) ==
LOC: ANHLAB 15:15
PROVIDERS: PCP Internal Medicine; Visit Provider Anesthesiology
DX: Z51.81 Encounter for therapeutic drug level monitoring (principal); K75.81 Nonalcoholic steatohepatitis (NASH)
CPT/HCPCS: 36415; 80048; 85610; 85730

== ENCOUNTER 2024-03-23 00:29 | Day surgery (SDC) | payer MEDICARE, SELFPAY ==
[2024-03-21 10:42] VITALS: BMI 34.7
--- NOTE | 2024-03-21 11:14 | PC.NURSE ---
Report to the Outpatient Waiting Room, entrance under the green pavilion located off [facility], at time __9:30AM on date ___03/23/24____. Planned Procedure Time: __11:30AM . Time changes happen often and if your time is changed the preop area will call you the afternoon before. - You and your visitor will be asked to self-screen and do not enter if you have any COVID symptoms. - A mask is optional within the hospital at this time. Patients may have clear liquids (water, carbonated beverages, clear teas, apple juice) until 3 hours prior to surgery with a maximum of 20 ounces. - No food from midnight until time of surgery. Take the following medications with a SIP of water the morning of surgery: ___DULOXETINE, LEVOTHYROXINE, METOPROLOL. MAY TAKE NEEDED: ADVAIR DISKUS INHALER, ALBUTEROL INHALER, MECLIZINE, TRAMADOL DO NOT STOP ANY OF YOUR OTHER PRESCRIPTION MEDICATIONS PRIOR TO SURGERY ?EXCEPT THE FOLLOWING Medications to discontinue per physician ____NONE Date to take last dose Please no make-up, nail irish, hairspray, perfume, deodorant, or body powder the day of surgery. No jewelry (including any body piercings) or valuables the day of surgery, leave them at home. Please take a shower or bath the night before, or the morning of, surgery with an antibacterial soap. Wear comfortable, loose fitting clothing. - Jewelry must be removed prior to entering the operating room. Rings and piercings that are not removed may be cut off. - The hospital will not accept responsibility for valuables. - Please leave all valuables, including medications, at home the day of surgery. If you are going home after surgery, a licensed helper driver must drive you home. - NO public transportation without another adult if you receive anesthesia. - We recommend that an adult stay with you for 24 hours following discharge. - We also recommend that you do not drive, make important decision, drink alcoholic beverages, or take any drugs that were not prescribed by your health care provider for at least 24 hours after your discharge time. Follow any additional instructions given to you from your surgeon. If you or anyone in your household have experienced Covid symptoms in the past week, please notify your surgeon or the nurse liaison at the phone number below for possible testing. Telephone instructions given to ____PATIENT and asked if any additional questions and then verbalized understanding. Patient advised to call surgeon office or pre surgery nurse liaison [phone] if any additional questions.
--- NOTE | ~2024-03-23 | XR_ITS ---
EXAMINATION: XR surgery orthopedic DATE: 03/23/2024 12:49 INDICATION: Ebony's bunion of left foot. TECHNIQUE: A single intraoperative fluoroscopic view of the left foot was obtained. I was not present . Fluoroscopy exposure time was 30 seconds. COMPARISON: None. FINDINGS: There are changes of resection of head of fifth metatarsal. IMPRESSION: 1. Resection of head of left fifth metatarsal. Reviewed, dictated and finalized at location A.
--- NOTE | 2024-03-23 07:07 | WPDHPUPDATE1 ---
History and Physical Update Update Date/Time: 03/23/24 07:07 History and Physical has been reviewed, including an updated exam of the patient. There are NO changes in the patient's condition. Risks, benefits, and alternatives have been discussed and questions answered. Patient agrees to proceed with procedure.
[2024-03-23 09:45] VITALS: BMI 35.2
[2024-03-23] MEDS: LACTATED RINGERS 1,000 ML 30 ML IV CONT (10:30)
--- NOTE | 2024-03-23 10:35 | WPDANESEPPF ---
Anes - Initial Pre Proc Eval Procedure: Operation Date: 03/23/24 11:30 Proposed Procedures p Fifth Metatarsal Head Resection of Left Foot - Otoniel Galvan Jr., DPM Date/Time: 03/23/24 10:35 Surgeon: Otoniel Galvan Jr., DPM Pre Op Diagnosis: angelita underwood left foot Patient Data Age: 74 Gender: F Height: 1.57 m Weight: 87.2 kg Allergies Allergy/AdvReac Type Severity Reaction Status Date / Time aspirin Allergy Intermediate Swelling Verified 03/23/24 10:34 ibuprofen Allergy Intermediate MOUTH Verified 03/23/24 10:34 SWELLING oxaprozin Allergy Mild MOUTH Verified 03/23/24 10:34 SWELLING levofloxacin AdvReac Intermediate Numbness Verified 03/23/24 10:34 hydrocodone AdvReac Mild itching Verified 03/23/24 10:34 meperidine AdvReac Mild Itching Verified 03/23/24 10:34 ramipril AdvReac Mild heart Verified 03/23/24 10:34 racing Cephalosporins AdvReac Itching Verified 03/23/24 10:34 CILLEN'S Allergy Mild RASH Uncoded 03/21/24 10:35 Home Medications Medication Instructions Recorded Confirmed Type hydroxychloroquine 200 mg tablet 200 mg PO BID 09/18/19 03/21/24 History meclizine 12.5 mg tablet 12.5 mg PO TID PRN motion sickness 11/06/21 03/21/24 Rx #30 tabs montelukast 10 mg tablet 10 mg PO DAILY #90 tabs 11/05/22 03/21/24 Rx (Singulair) tramadol 50 mg tablet 50 mg PO Q12H PRN Pain #30 tabs 02/28/23 03/21/24 Rx albuterol sulfate 90 mcg/actuation 2 puff inhalation Q4-6H PRN 04/04/23 03/21/24 Rx aerosol inhaler Shortness Of Breath #8.5 grams cyclobenzaprine 5 mg tablet 5 mg PO QHS PRN muscle spasm #20 06/08/23 03/21/24 Rx tabs metoprolol tartrate 25 mg tablet 25 mg PO BID #90 tabs 06/08/23 03/21/24 Rx lisinopril 5 mg tablet 5 mg PO DAILY #90 tabs 10/12/23 03/21/24 Rx pantoprazole 40 mg tablet,delayed 40 mg PO BID #180 tabs 10/26/23 03/21/24 Rx release levothyroxine 50 mcg tablet 50 mcg PO DAILY #90 tabs 11/04/23 03/21/24 Rx hydrochlorothiazide 50 mg tablet 50 mg PO DAILY #90 tabs 12/28/23 03/21/24 Rx duloxetine 30 mg capsule,delayed See Rx Instructions .Route 01/24/24 03/21/24 Rx release .COMPLEX #90 caps potassium chloride 10 mEq 10 meq PO DAILY #90 tabs 02/26/24 03/21/24 Rx tablet,extended release (Klor-Con) gemfibrozil 600 mg tablet (Lopid) 600 mg PO BID #180 tabs 03/01/24 03/21/24 Rx fluticasone 250 mcg-salmeterol 50 1 inh inhalation BID PRN Shortness 03/21/24 03/21/24 History mcg/dose blistr powdr for Of Breath Or Wheezing inhalation (Advair Diskus) gabapentin 300 mg capsule 600 mg PO HS 03/21/24 03/21/24 History Patient hx anesthesia problems: none Family hx anesthesia problems: none Results Review: All pre-operative results and documents have been reviewed as part of the pre-operative evaluation. [facility] Past Medical History Medical History Breast cancer RT breast received radiation History of tennis elbow History of trigger finger thumb - surgery Hyperglycemia Hypertension Lymph edema LEWIS (nonalcoholic steatohepatitis) Other dorsalgia Plantar fasciitis Primary osteoarthritis of left hip Primary osteoarthritis of right knee Pure hypercholesterolemia Rheumatoid arthritis Unspecified asthma, uncomplicated Unspecified cirrhosis of liver Surgical History Surgical History History of appendectomy History of back surgery History of bladder repair surgery History of carpal tunnel surgery History of cholecystectomy History of hernia repair History of hysterectomy History of lumpectomy of right breast Hx of laminectomy Family History Family History Father Diabetes mellitus Mother Hypertension Cancer of kidney Social History Social History Smoking status: Never smoker Tobacco type: cigarettes Second hand
[2024-03-23] MEDS: BUPivacaine HCL 0.5% 10 ML AMP INFILTRATE (12:16)
[2024-03-23] MEDS: ceFAZolin 2 GM/D5W 50 ML 2 GM/50 ML BAG IVPB (12:16)
[2024-03-23] MEDS: LIDOCAINE HCL 2% LOCAL INJ 20 ML VIAL 10 ML INFILTRATE (12:30)
[2024-03-23 12:50] VITALS: BP 131/60; PULSE 89; RESP 15; O2SAT 96
--- NOTE | 2024-03-23 12:53 | W.PM.PROC2 ---
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 A pneumatic ankle tourniquet was placed about the patient's left leg. Following monitored anesthesia care, local anesthesia was obtained about the patients 5th metatarsal base with a Pearson block utilizing 20 mL of a 1:1 mixture of 2% Lidocaine plain and 0.5% Marcaine plain. The foot was then scrubbed, prepped, and draped in the usual aseptic manner. An Esmarch bandage was then used to exsanguinate the patient's foot and the pneumatic ankle tourniquet was then inflated. Attention was directed to the dorsal lateral aspect of the fifth metatarsal head where a 2 cm incision was made just lateral to the extensor digitorum longus tendon to the fifth digit to the shaft of the fifth metatarsal. The incision was continued deep down through the subcutaneous tissues using sharp and blunt dissection. All bleeders were cauterized as necessary.A full-length periosteal incision was made overlying the fifth metatarsal distally. A McGlamry Elevator was used to free the plantar structures to the fifth metatarsal head. Next, a sagittal bone saw was used to resect the head of the fifth metatarsal proximal at the neck of the 5th metatarsal. The fifth metatarsal was removed from the operative site and placed on the back table and discarded. No abnormalities to the head of the fifth metatarsal. Fluoroscopy was used to make sure that the resected distal fifth metatarsal was adequate. The edges were smoothed out with a bone rasp. Next, the periosteum and capsular structures overlying the 5th metatarsophalangeal joints were reapproximated with 4-0 Vicryl. Next, subcutaneous structures were reapproximated and coapted utilizing 4-0 Vicryl. Next, the skin was reapproximated and coapted utilizing 4-0 Monocryl in running subcuticular suture fashion technique. Upon completion of the procedure, the incision was dressed with Adaptic, 4 x 4's, Kerlix, and Coban. The pneumatic ankle tourniquet was then deflated and a prompt hyperemic response noted to all digits of the foot. A CAM walker boot was then applied. The patient did very well with the procedure and the anesthesia. The patient was transferred to the recovery room with vital signs stable and vascular status intact to all toes of the affected foot. Following a period of postoperative monitoring, the patient will be discharged home on the following written and oral postoperative instructions: 1. Keep the dressing clean, dry, and intact. Use a cast protector bag with showers. 2. The patient should use a surgical shoe for ambulation postoperatively. 3. The patient should be on bedrest with bathroom privileges and elevate the affected foot when at rest. 4. The patient to contact Dr. Galvan for all postop care and if any problems arise. 5. Prescriptions were written for Percocet 5/325 dispensed 40 to be taken 1 p.o. q.4 to 6 hours as needed for severe pain. 6. Take one Aspirin 325mg every 24hours for two weeks post operatively. Estimated Blood Loss 1 Drains No Packing No Pathology None sent Complications No immediate complications Condition Stable Disposition Same day
[2024-03-23 13:10] VITALS: BP 125/56; PULSE 83; RESP 15; O2SAT 97
[2024-03-23 13:40] VITALS: BP 141/62; PULSE 85; RESP 16; O2SAT 95
[2024-03-23 14:10] VITALS: BP 144/72; PULSE 86; RESP 16; O2SAT 96
[2024-03-23 14:36] VITALS: BP 144/53; PULSE 80; RESP 16; O2SAT 95
== END 2024-03-23 14:40 | disposition home or self-care (01) ==
PROVIDERS: PCP Internal Medicine; Visit Provider Podiatrist Foot & Ankle Surgery
PROC: (CPT 28104; principal; 2024-03-23 11:30)
DX: M21.622 Bunionette of left foot (principal); M21.6X2 Other acquired deformities of left foot; I10 Essential (primary) hypertension; R73.9 Hyperglycemia, unspecified; E78.00 Pure hypercholesterolemia, unspecified; K75.81 Nonalcoholic steatohepatitis (NASH); K74.60 Unspecified cirrhosis of liver; J45.909 Unspecified asthma, uncomplicated; G60.9 Hereditary and idiopathic neuropathy, unspecified; M06.9 Rheumatoid arthritis, unspecified; M16.12 Unilateral primary osteoarthritis, left hip; M17.11 Unilateral primary osteoarthritis, right knee; E66.9 Obesity, unspecified; Z68.35 Body mass index [BMI] 35.0-35.9, adult; Z79.51 Long term (current) use of inhaled steroids; Z79.84 Long term (current) use of oral hypoglycemic drugs; Z98.890 Other specified postprocedural states; Z98.1 Arthrodesis status; Z90.49 Acquired absence of other specified parts of digestive tract; Z85.3 Personal history of malignant neoplasm of breast; Z80.51 Family history of malignant neoplasm of kidney; Z82.49 Family history of ischemic heart disease and other diseases of the circulatory system
CPT/HCPCS: 28113; 99199; J0690; J2704; J3010; J7120

== ENCOUNTER 2024-06-07 15:52 | Outpatient (CLI) | payer MEDICARE, SELFPAY ==
--- NOTE | ~2024-06-07 | XR_ITS ---
XR shoulder LT min 2V Ordering provider: Liya Hartmann MD History: . Chronic shoulder pain . Comparison: December 10, 2004 FINDINGS: BONES: No acute fracture or dislocation. JOINT SPACES: The acromioclavicular joint shows mild osteoarthritic changes. The glenohumeral joint s hows mild osteoarthritic changes with osteophytes seen inferiorly in the glenoid cavity. SOFT TISSUES: Normal. IMPRESSION: No acute osseous abnormality left shoulder. Reviewed, dictated and finalized at location A.
--- NOTE | ~2024-06-07 | XR_ITS ---
XR shoulder RT min 2V Ordering provider: Liya Hartmann MD History: . Chronic shoulder pain . Comparison: None. FINDINGS: BONES: No acute fracture or dislocation. Mild degenerative changes in the area of the greater tuberos ity. JOINT SPACES: The acromioclavicular joint shows mild osteoarthritic changes.. The glenohumeral joint is normal. SOFT TISSUES: Normal. IMPRESSION: No acute osseous abnormality right shoulder. Reviewed, dictated and finalized at location A.
== END 2024-06-07 15:53 | disposition home or self-care (01) ==
LOC: MICIMG 15:53
PROVIDERS: PCP Neurological Surgery; Referring Provider Internal Medicine; Visit Provider Pain Medicine Pain Medicine
DX: M25.512 Pain in left shoulder (principal); M25.511 Pain in right shoulder; G89.29 Other chronic pain
CPT/HCPCS: 73030

== ENCOUNTER 2024-06-21 10:22 | Outpatient (CLI) | payer MEDICARE, SELFPAY | END 2024-06-21 10:23 | disposition home or self-care (01) | LOC: ANHAUDIO 10:24 | PROVIDERS: PCP Neurological Surgery; Visit Provider Otolaryngology | DX: H90.6 Mixed conductive and sensorineural hearing loss, bilateral (principal); H69.90 Unspecified Eustachian tube disorder, unspecified ear; J30.2 Other seasonal allergic rhinitis | CPT/HCPCS: 92557; 92567 ==

== ENCOUNTER 2024-09-04 16:09 | Outpatient (CLI) | payer MEDICARE, SELFPAY ==
--- NOTE | ~2024-09-04 | XR_ITS ---
EXAMINATION: XR cervical spine 4-5V DATE: 09/04/2024 16:42 INDICATION: Radiculopathy, cervical region. TECHNIQUE: 5 views of cervical spine including flexion and extension views were obtained. COMPARISON: None. FINDINGS: There is 3 degrees levocurvature of cervical spine. The spine is hypomobile with flexion an d extension. Vertebral body heights are normal. There is moderately decreased disc height at C5-C6 an d severely decreased disc height at C6-C7. There is multilevel uncovertebral joint osteoarthritis, se fang bilaterally at C5-C6 and C6-C7. There is multilevel [id number]-[id number] facet joint osteoarthritis. There is mild central canal stenosis at C5-C6 and C6-C7. No prevertebral soft tissue swelling. IMPRESSION: 1. Severe cervical spondylosis. Reviewed, dictated and finalized at location A. CAL SPECIALIST
--- OUTSIDE RECORDS SUMMARY | 2024-09-04 16:16 | XMS_ITS | Encounter Summary ---
Author Organization [facility] Healthcare Address [address] [place] [address] Care Team Providers Care Hand Tool Lapper Name Role Phone Vasquez Ashley MD Primary Care Provider [phone] Clarice Fleming MD Unavailable Ramses Rosa MD Unavailable [phone] Mary Verdugo NP Unavailable + Encounter Details Date Type Department Care Team (Late st Contact Info) Description 01/12/2019 Telephone 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 Author CCM Chronic Pain Care Plan Chronic Care Management No Ximena Greene RN Note: Problem: Chronic Pain Goals: 1. Minimize further functional decline 2. Maximize quality of life 3. Control pain Strategies: - Activity/exercise program recommendation - Conservative stepwise pain medicine strategy with multi-disciplinary approach - Recommend healthy lifestyle strategies and compensatory methods as needed Reduce the likelihood of falling Lifestyle Chelsi Boyer, MAHENDRA Note: Below are four things you can do to prevent falls: 1. Begin an exercise program to improve your leg strength & balance 2. Ask your doctor or pharmacist to review your medicines 3. Get annual eye check-ups & update your eyeglasses 4. Make your home safer by: ?? Removing clutter & tripping hazards ?? Putting railings on all stairs & adding grab bars in the bathroom ?? Having good lighting, especially on stairs Contact your local community or [facility] for information on exercise, fall prevention programs, or options for improving home safety. documented as of this encounter Visit Diagnoses Not on filedocumented in this encounter Additional Health Concerns Infection Onset Date Last Indicated Resolved Time COVID: Suspected 11/24/2022 11/25/2022 11/25/2022 3:28 AM CDT documented as of this encounter Care Teams Hand Tool Lapper Relationship Specialty Start Date End Date Vasquez Ashley MD [address] [facility] [address] [place] [address] PCP - General 11/05/16 [place] [address] [facility] [address] [place] [address] Rheumatology 03/25/17 Ramses Rosa MD [address] [facility] [address] [place] [address] Medical Oncology 03/25/17 09/02/20 [place] [address] [facility] [address] [place] [address] Nurse Practitioner Rheumatology 01/27/22 documented as of this encounter
--- OUTSIDE RECORDS SUMMARY | 2024-09-04 16:16 | XMS_ITS | Clinical Summary ---
Author Organization [employer] [address] [place] [address] Address [address] [place] [address] Care Team Providers Care Engine Tester Name Role Phone Vasquez Ashley DO Primary Care Provider [phone] Allergies Active Allergy Reactions Criticality Noted Date Comments Adhesive Tape-Silicones Itching Medium 03/28/2019 Aspirin Itching Medium 07/17/2014 Cephalosporins Hives,Itching,Other (See Comments) High 11/21/2012 Chest tightening Clindamycin Unknown 03/28/2019 Hydrocodone-Acetaminophe n Itching Medium 03/28/2019 Ibuprofen Itching,Swelling,An gioedema High 11/21/2012 Levofloxacin Other (See Comments) Medium 11/21/2012 Numbness in legs, mostly right per pt Nsaids (Non-Steroidal Anti-Inflammatory Drug) Itching,Swelling High 11/21/2012 Oxaprozin Unknown 03/28/2019 Penicillins Itching Low 11/21/2012 Pollen Extracts Other (See Comments) Medium 03/28/2019 Reaction: WATERY EYES, TEAR, Propoxyphene-Acetaminoph en Unknown 03/28/2019 Ramipril Other (See Comments) High 07/17/2014 Other reaction(s): Altered Heart Rate (moderate to severe) Other reaction(s): Altered Heart Rate (moderate to severe) Shrimp Nausea and Vomiting Medium 03/28/2019 Sulfamethoxazole-Trimeth oprim Other (See Comments) High 03/28/2019 Tightness in chest Tolmetin Itching,Swelling High 11/21/2012 Medications montelukast (SINGULAIR) 10 mg tablet Take 10 mg by mouth daily with breakfast. 3 Active metoprolol tartrate (LOPRESSOR) 25 mg tablet Take 25 mg by mouth daily. 3 Active hydroCHLOROthiazi de 50 mg tablet Take 50 mg by mouth daily. 3 Active gemfibrozil (LOPID) 600 mg tablet Take 600 mg by mouth 2 times daily. 5 Active betamethasone dipropionate (DIPROSONE) 0.05 % Ointment Apply to affected area 2 times daily. Vaginal itching 3 9 Active fluticasone propion-salmetero l (ADVAIR DISKUS) 250-50 mcg/dose disk inhaler Take 1 Puff by inhalation 2 times daily. Active pantoprazole (PROTONIX) 40 mg Tablet, Delayed Release (E.C.) Take 40 mg by mouth 2 times daily. Active traMADol (ULTRAM) 50 mg tabletIndications :Other spondylosis with radiculopathy, lumbar region Take 1 Tablet (50 mg) by mouth every 12 hours as needed for Pain. 14 Tablet 9 Active HYDROcodone-aceta minophen (NORCO) 5-325 mg tabletIndications :Inflammation of both sacroiliac joints Take 1 Tablet by mouth every 4 hours as needed for Pain. Max Daily Amount: 6 Tablets 40 Tablet 07/13/2019 11:28 AM MATERIALS ASSISTANT 9 Active diphenhydrAMINE (BENADRYL) 25 mg capsule Take 1 Capsule (25 mg) by mouth every 4 hours as needed for Allergies. 9 Active cyanocobalamin (VITAMIN B-12) 100 mcg tablet Activ e hydroxychloroquin e (PLAQUENIL) 200 mg tablet Take 200 mg by mouth 2 times daily. Active aspirin (ECOTRIN EC) 81 mg Tablet, Delayed Release (E.C.) Take 81 mg by mouth daily. 3 Active potassium chloride (KLOR-CON) 10 mEq Extended Release tablet Take 10 mEq by mouth daily. Active DULoxetine (CYMBALTA) 30 mg Capsule, Delayed Release(E.C.) Take 30 mg by mouth daily. Active levothyroxine 50 mcg tablet Take 50 mcg by mouth daily. Active lisinopriL (PRINIVIL) 5 mg tablet Take 5 mg by mouth daily. Active aspirin (JAYA) 325 mg tablet Take 325 mg by mouth daily. 2 weeks only after surgery Active Active Problems Problem Noted Date Diagnosed Date Vertebral artery stenosis, asymptomatic, left Stenosis of carotid artery 03/28/2024 Benign hypertension 03/28/2024 Mixed hyperlipidemia 03/28/2024 Class 2 severe obesity due t o excess calories with serious comorbidity and body mass index (BMI) of 37.0 to 37.9 in adult 03/28/2024 PSVT (paroxysmal supraventricular tachycardia) 0 03/28/2024 Postoperative follow-up 07/24/2019 Exogenous obesity 03/27/2019 Inflammation of both sacroiliac joints 9 Other spondylosis with radiculopathy, lumbar reg ion 03/27/2019 Encounters Date Type Department Care Team Description 08/30/2024 External Device Data STL ABSTRACTION Provider, Abstract 08/29/2024 External Device Data ST[facility] ABSTRACTION Provider, Abstract 08/28/2024 External Device Data ST[facility] ABSTRACTION Provider, Abstract 08/21/2024 External Device Data STL ABSTRACTION Provider, Abstract from Last 3 Months Family History Medical History Relation Name Comments Diabetes Brother Diabetes Father Heart Attack Father Heart Disease Father Cancer Mother kidney Hypertension Mother Other Sister arthritis Relation Name Status Comments Brother Alive Father Mother Sister Alive Social History Tobacco Use Types Packs/Day Years Used Date Smoking Tobacco: Never Smokeless Tobacco: Never Tobacco Cessation:Counseling Given: Not Answered Alcohol Use Standard Drinks/Week Comments Yes 0 (1 standard drink = 0.6 oz pur e alcohol) rarely Comments No Sex and Gender Information Value Date Recorded Sex Assigned at Not on file Legal Sex Female 3:40 PM CDT Gender Identity Not on file Sexual Orientation Not on file Occupation Industry Job Start Date Job End Date Not on file Not on file Not on file Not on file Last Filed Vital Signs Vital Sign Reading Time Taken Comments Blood Pressure 102/58 03/28/2024 1:00 PM CDT Pulse 68 03/28/2024 1:00 PM CDT Temperature 37.3 ??C (99.2 ??F) 07/13/2019 7:51 AM CS T Respiratory Rate 14 07/13/2019 7:51 AM MATERIALS ASSISTANT Oxygen Saturation 98% 03/28/2024 1:00 PM CDT Inhaled Oxygen Concentration - - Weight 90.3 kg (199 lb) 03/28/2024 1:00 PM CDT Height 157.5 cm (5' 2 ) 03/28/2024 1:00 PM CDT Body Mass Index 36.4 03/28/2024 1:00 PM CDT Plan of Treatment Upcoming Encounters Date Type Department Care Team (Late st Contact Info) Description 11/19/2024 10:00 AM CDT Office Visit [facility] [address] [place] [address] Marcelino Oconnell MD [address] [place] [address] Health Maintenance Due Date Last Done Comments DTAP/TDAP/TD VACCINES (1 - Tdap) 12/31/1970 PNEUMOCOCCAL VACCINE 65+ YEA RS (1 of 2 - PCV) 12/31/1970 Traditional Medicare (ACO) A nnual Wellness Visit 12/31/1970 ZOSTER VACCINE (1 of 2) 12/31/1970 FIT-DNA Q 3 years 12/31/1996 FIT/FOBT Q 1 year 12/31/1996 Flex Sig/CT Colonography Q 5 years 12/31/1996 RSV VACCINE (60+ or ) (1 - Risk 60-74 years 1-dose series) 2012 INFLUENZA VACCINE (#1) 2024 06/05/2014 BREAST CANCER SCREENING 11/30/2024 12/01/19 24, 11/08/2023, 11/03/2022, Additional history exists COLORECTAL SCREENING 05/12/2031 05/12/2021, 05/12/20 21 Colorectal Cancer Screening 05/12/2031 OSTEOPOROSIS SCREENING Completed 2, 11/12/2021, 08/05/2017 Medical Devices Implanted Type Area Steward/Stewardess Deck Device Identifier Shelf Expiration Date Model / Serial / Lot Hemostatic Surgiflo 8ml W/Thrombin 2994 - [id number] Implanted:Qty: 1 on 07/12/2019 by Joe Dewitt MD at [facility] Hemostatic Right: Spine Lumbar [employer] 06/07/2020 [id number] / / [id number] Insurance MEDICARE PART A AND B [facility] RX Good Seed Medicare Part D MEDICARE PART A AND B BS SUPP Advance Directives For more information, please contact: [phone] * Full Code (Latest Code Status on File) Date Activated Date Inactivated Comments 07/12/2019 3:08 PM 07/13/2019 3:12 PM Care Teams Engine Tester Relationship Specialty Start Date End Date Vasquez Ashley DO [address] [address] PCP - General Internal Medicine 03/15/19
--- OUTSIDE RECORDS SUMMARY | 2024-09-04 16:17 | XMS_ITS ---
Author Organization [facility] Address [address] [address] Care Team Providers Care Silverlight Developer Name Role Phone Vasquez Ashley MD Primary Care Provider [phone] Clarice Fleming MD Unavailable Mary Verdugo NP Unavailable + Active Problems Problem Noted Date Diagnosed Date Bilateral carotid artery stenosis 05/07/2024 Assessment & Plan (06/04/2024 1:59 PM CDT): Asymptomatic moderate ICA stenosis bilaterally. I do not think this would be the cause of her headache or dizziness, recommend further evaluation by ENT. Continue risk factor modification with ASA statin therapy good blood pressure control. Follow up in 1 year with repeat carotid duplex. Assessment & Plan (05/07/2024 11:50 AM CDT): Moderate stenosis bilateral internal carotid arteries with moderate to severe stenosis of the left vertebral artery. Overall I do not think her headaches and dizziness would be associated to single vertebral disease as well as carotid disease. I have ordered a carotid duplex for further evaluation as she has dense calcific plaque at the carotid bifurcations. Continue risk factor modification with ASA statin therapy and good blood pressure control. We will follow up in the office after her noninvasive testing. Benign hypertension 03/28/2024 Assessment & Plan (06/04/2024 1:59 PM CDT): Stable continue lisinopril Stenosis of carotid artery 03/28/2024 Lichen sclerosus et atrophicus of the vulva 02/05 Vertebral artery stenosis, asymptomatic, left History of lumpectomy of right breast 11/04/2022 PSVT (paroxysmal supraventricular tachycardia) 1 09/09/2021 Mixed hyperlipidemia 07/09/2022 Assessment & Plan (06/04/2024 1:59 PM CDT): Recommend statin therapy. 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 Change in bowel movement 01/11/2018 Chest pain 01/11/2018 Special screening for malignant neoplasms, colon 01/11/2018 H/O adenomatous polyp of colon 01/11/2018 History of adenomatous polyp of colon 01/11/2018 History of colonic polyps 01/11/2018 History of benign carcinoid neoplasm of gastrointestinal tract 01/11/2018 History of other diseases of digestive system Interstitial cystitis 01/11/2018 Other chronic nonalcoholic liver disease 018 OAB (overactive bladder) 01/11/2018 Obesity 01/11/2018 Benign neoplasm 01/11/2018 Allergic reaction to drug 08/25/2017 Assessment & Plan (08/25/2017 9:09 AM STAVE BLOCK ROLLER): She is allergic to Orenica and thus I suggested that we stop it. 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 I will discuss with her oncologist the use of another biologic as she is currently having a flare of her Ra. Tear of right hamstring 08/25/2017 Assessment & Plan (08/25/2017 9:15 AM STAVE BLOCK ROLLER): Since her last visit she slipped in her garage and torn her right hamstring. She saw Dr Clark and has had 4 weeks of PT and is currently using a cane. She is also seeing a chiropractor. Encounter for long-term (current) use of medicat ions 06/23/2017 Assessment & Plan (04/27/2018 7:38 AM CDT): Patient on immunosuppressive medications requiring periodic lab monitoring for drug safety. Quant gold 02/22 Hep B/C 12/21 Assessment & Plan (01/26/2018 4:49 PM CDT): Will continue to monitor w/ routine labs Assessment & Plan (10/26/2017 9:23 AM CDT): Will continue to monitor blood work. Will check quant gold today. Assessment & Plan (08/25/2017 9:04 AM STAVE BLOCK ROLLER): Will continue to monitor blood work Scabies 03/24/2017 Rheumatoid arthritis 03/11/2017 Assessment & Plan (04/27/2018 11:03 AM CDT): Patient disease activity is moderate. Currently on HCQ BID. Avoiding MTX and arava d/t history of liver cirrhosis. She had an allergic rxn to orencia. She had a few flares in February. Her joints are better today. She has started using CBD oil and reports this has helped greatly. Is having more pain in her feet. Clinical evidence of swelling on exam. She also has a few tender joints. Patient is to continue current regimen for now. We discussed the goal of therapy and importance of minimizing disease progression to maintain functionality and reaching remission. 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 We will also reach out to these providers. We are going to repeat her xrays to monitor for erosive changes. Follow up in 3 mo, sooner if needed Assessment & Plan (01/26/2018 5:29 PM CDT): Patient disease activity is high on hcq bid. She had a rxn w/ IV orencia, so this was stopped. Reporting 8/10 joint pain. She has a h/o breast cancer and is seeing Dr. Ramses Rosa. She is 6 yrs out. Patient is to continue HCQ. Due to burden of disease, will give steroid shot today Will check routine labs at next office visit. Recent labs WNL Will repeat AVISE to monitor for change in serologies. She will follow up in 3 mo, sooner if needed. Assessment & Plan (10/26/2017 9:30 AM CDT): Patient disease activity is moderate. Currently on HCQ. Avoiding MTX and arava d/t history of liver cirrhosis. Had allergic rxn to orencia, so it was stopped. Would like to get her on a different biologic, possibly Rituxan. Will have to check w/ her oncologist. Patient is to continue current regimen for now. Touch base w/ her oncologist about starting biologic, Rituxan. Will check routine labs today. Follow up in 3 mo, sooner if needed. Pt seen w/ Leora Bustamante PA-C Assessment & Plan (08/25/2017 9:23 AM STAVE BLOCK ROLLER): She is currently having a flare of her joint pain and reports pain in the mcps and L big toe. We have checked a uric acid in the past but will check it today. However, I suspect that most likely her toe pain is due to a bunion. I suggested she stop the Orenica and we will touch base with her oncologist Dr Ramses Rosa about which biologic to use. She is 6 years out- 09/19/11 was when she had breast surgery. Today I suggested that we give her a steroid injection for the flare. Cirrhosis of liver 03/11/2017 Lumbago 04/26/2016 Degeneration of intervertebral disc of lumbar re gion 04/26/2016 Trochanteric bursitis 10/23/2015 Abnormal magnetic resonance imaging study 2014 Fibromyalgia 05/05/2015 Assessment & Plan (04/27/2018 11:04 AM CDT): Also likely source of pain. Discussed proper self-care, such as exercise and getting enough sleep to help manage symptoms. Assessment & Plan (01/26/2018 4:49 PM CDT): Also likely source of pain. Discussed proper self-care, such as exercise and getting enough sleep to help manage symptoms. Inflammation of sacroiliac joint 05/05/2015 Osteoarthritis of knee 09/02/2014 Hypertensive disorder 05/17/2014 Overview (02/21/2024): Hypertension Assessment & Plan (05/07/2024 11:51 AM CDT): Stable continue lisinopril Asthma 05/17/2014 Overview (11/11/2016): Asthma Arthritis 05/17/2014 Overview (11/11/2016): Arthritis Osteoarthritis of thoracic spine 08/23/2013 Postlaminectomy syndrome of thoracic region 08/08 Lumbar radiculopathy 02/01/2013 Chronic pain 02/01/2013 Arthralgia of multiple joints 11/02/2012 Overview (11/10/2016): JOINT PAIN-MULT JTS Malignant neoplasm of upper- outer quadrant of right breast in female, estrogen receptor positive 07/19/2012 Meralgia paresthetica 04/25/2012 Other spondylosis with radiculopathy, lumbar reg ion 04/25/2012 Current Oncology Plans No current plan information found. Past Plans No past plan information found. Radiation Treatments * No radiation treatments are documented for this patient in [facility]. Treatments may have been administered in another system. Lifetime Dose Tracking * Chemical Lifetime Dose Automatic Entry Manual Entr y DLP 2,920 mGycm 2,920 mGycm 0 mGycm Resolved Problems Problem Noted Date Diagnosed Date Resolved Date Menopause 01/11/2018 02/02/2019 Encounter for long-term (cur rent) use of other medications 03/11/2017 08/25/2017 Malignant neoplastic disease (CMS/HCC) 05/17/2014 02/02/2019 Overview (11/11/2016): Cancer
--- OUTSIDE RECORDS SUMMARY | 2024-09-04 16:17 | XMS_ITS | Clinical Summary ---
Author Organization [facility] Address [address] [place] [address] Care Team Providers Care Sterile Process Tech Name Role Phone Vasquez Ashley Primary Care Provider Thong Grant MD Unavailable [phone] Clarice Fleming MD Unavailable Source Comments [facility],non-owned Affiliates and Associated Physician Practices is amultiple site organization consisting of ambulatory clinics and hospital sitesin [place], [place], [place] and [place]. This disclosure is being madepursuant to the Care Everywhere program and may not contain all information available regarding this patient. Last updated 18.[facility] Allergies Active Allergy Reactions Criticality Noted Date Comments Adhesive Sensitivity Itching Medium 03/28/2019 Aspirin Itching High 07/17/2014 Other reaction(s): GI Bleeding (moderate to severe) Reaction: itching,?, Cefuroxime 11/21/2012 Chest tightenss Cephalosporins Itching 11/21/2012 Itching Hydrocodone-Acetaminophen Itching Reaction: PRURITIS, Ibuprofen Itching,Swelling High 11/21/2012 Motrin/Ibuprofen/ Advil/ Naproxen - Mouth swelling/itching Levofloxacin 11/21/2012 Muscle spasms Nsaids Itching,Swelling 11/21/2012 Swelling/itching Oxaprozin Unknown Penicillins Itching 11/21/2012 Pollen Extract Other Medium 03/28/2019 Reaction: WATERY EYES, TEAR, Ramipril Unknown High 07/17/2014 Other reaction(s): Altered Heart Rate (moderate to severe) Shellfish Allergy Nausea and/or Vomiting Medium 03/28/2019 Sulfamethoxazole W-Trimethoprim Other High 03/28/2019 Tightness in chest Tolmetin Itching,Swelling Medium 11/21/2012 Swelling/itching Medications * Be aware that medications may not be up to date on this document. Alwaysverify current medications with the patient. Medication Sig Dispensed Refills Start Date End Date Status quinapril (ACCUPRIL) 10 MG tablet Take 1 (one) tablet by mouth once daily Active montelukast (SINGULAIR) 10 MG tablet Take 1 (one) tablet by mouth once daily Active potassium chloride (KLOR-CON) 10 MEQ tablet Take 1 (one) tablet by mouth once daily Reported on 07/22/2016 Active hydrochlorothiazi de (HYDRODIURIL) 50 MG tablet Take 1 (one) tablet by mouth once daily Active metoprolol tartrate IR (LOPRESSOR) 25 MG tablet Take 1 (one) tablet by mouth once daily Active tiZANidine (ZANAFLEX) 4 MG tablet TK 1 T PO TID prn 2 05/05/2016 Active B Complex Vitamins (VITAMIN-B COMPLEX PO) Take 1 tablet by mouth once daily Active Magnesium Gluconate (MAGNESIUM 27 PO) Take 1 tablet by mouth once daily Active Fluticasone-Salme terol (ADVAIR DISKUS IN) Inhale 2 puffs by mouth as needed Active GEMFIBROZIL PO Take 600 mg by mouth 2 times daily after meals Active hydroxychloroquin e (PLAQUENIL) 200 MG tabletIndications :Rheumatoid Arthritis Take 1 (one) tablet by mouth 2 times daily Reasons: Rheumatoid Arthritis Active diclofenac sodium (PENNSAID) 1.5 % topical solution Apply 40 (forty) drops to affected area 4 times daily Active traMADol (ULTRAM) 25 MG TABS tablet Take by mouth every 6 hours as needed Active methenamine hippurate (Hiprex) 1 GM tabletIndications :Recurrent UTI Take 1 (one) tablet by mouth 2 times daily 180 tablet 3 08/06/2024 Active triamcinolone acetonide (Kenalog) 0.5 % ointmentIndicatio ns:Lichen sclerosus et atrophicus of the vulva Apply to affected area 3 times daily 45 g 3 08/06/2024 Active triamcinolone acetonide (Kenalog) 0.5 % ointmentIndicatio ns:Lichen sclerosus et atrophicus of the vulva APPLY TO AFFECTED AREA 3 TIMES DAILY 45 g 08/16/2022 4 Discontinued (Reorder) nitrofurantoin monohyd macro crystals (Macrobid) 100 MG capsuleIndication s:Urinary tract infection without hematuria, site unspecified Take 1 (one) capsule by mouth 2 times daily with morning and evening meal for 5 days 10 capsule 08/06/2024 5 Active Problems Problem Noted Date Diagnosed Date Menopause Rheumatoid arthritis Cirrhosis of liver Interstitial cystitis OAB (overactive bladder) Lichen sclerosus et atrophicus of the vulva Encounters Date Type Department Care Team Description 08/06/2024 2:00 PM AIR POLLUTION SPECIALIST Office Visit [facility] [employer]EARCH AND DEVELOPMENT TESTER [address] [place] [address], [address] [phone] Thong Grant MD Urinary tract infection without hematuria, site unspecified (Primary Dx); Recurrent UTI; Lichen sclerosus et atrophicus of the vulva 08/06/2024 Travel 06/21/2024 2:10 PM AIR POLLUTION SPECIALIST Office Visit [facility] [employer] DEVELOPMENT [employer] [address] [place] [address], [address] [phone] Thong Grant MD UTI symptoms (Primary Dx); Recurrent UTI 06/20/2024 Telephone [facility] [employer] [facility], [address] [phone] Thong Grant MD UTI from Last 3 Months Social History Tobacco Use Types Packs/Day Years Used Date Smoking Tobacco: Never Smokeless Tobacco: Never Tobacco Cessation:Counseling Given: Not Answered Alcohol Use Standard Drinks/Week Comments No 0 (1 standard drink = 0.6 oz pur e alcohol) PHQ-2 Answer Date Recorded Patient Health Questionnaire-2 Score 1 05/13/2023 Sex and Gender Information Value Date Recorded Sex Assigned at Not on file Gender Identity Not on file Sexual Orientation Not on file Last Filed Vital Signs Vital Sign Reading Time Taken Comments Blood Pressure 120/62 08/06/2024 2:28 PM AIR POLLUTION SPECIALIST Pulse 71 08/31/2017 11:55 AM AIR POLLUTION SPECIALIST Temperature 36.6 ??C (97.9 ??F) 08/31/2017 12:[address] Respiratory Rate 12 08/31/2017 11:55 AM AIR POLLUTION SPECIALIST Oxygen Saturation 98% 08/31/2017 12:33 PM AIR POLLUTION SPECIALIST Inhaled Oxygen Concentration - - Weight 90.7 kg (200 lb) 08/06/2024 2:28 PM AIR POLLUTION SPECIALIST Height 157.5 cm (5' 2 ) 08/06/2024 2:28 PM AIR POLLUTION SPECIALIST Body Mass Index 36.58 08/06/2024 2:28 PM AIR POLLUTION SPECIALIST Plan of Treatment Upcoming Encounters Date Type Department Care Team (Late st Contact Info) Description 08/05/2025 10:20 AM AIR POLLUTION SPECIALIST Office Visit [facility] - [employer] AND DEVELOPMENT TE[employer] [address] [place] [address], [address] [place] [phone] Thong Grant MD [address] [place] [address] [place] [phone] Health Maintenance Due Date Last Done Comments COLOGUARD (AGES 45-75) - COLON CA SCREENING [address] COLONOGRAPHY - COLON CA SCREENING 1952 FIT - COLON CA SCREENING 1950 FLEX SIG - COLON CA SCREENING 1952 LIPID TESTING 1950 MEDICARE AWV ? 12 MONTHS 1950 HEPATITIS C SCREENING 12/27/1969 DTAP/TDAP/TD VACCINES (1 - Tdap) 12/31/1970 PNEUMOCOCCAL VACCINE 50+ (1 of 2 - PCV) 12/31/1970 ZOSTER VACCINE (1 of 2) 12/31/2001 HEPATITIS B VACCINE (1 of 3 - Risk 3-dose series) 2012 Respiratory Syncytial Virus (RSV) Vaccine Pt: or over 60 yrs (1 - Risk 60-74 years 1-dose series) 2012 COVID-19 VACCINE (2 - season) 2024 10/13/2020 INFLUENZA VACCINE (#1) 2024 06/05/2014 DEPRESSION SCREENING 08/08/2024 05/13/2023 MAMMOGRAM 11/07/2024 11/08/2023, 04/0 09/2023, 11/03/2022, Additional history exists COLONOSCOPY - COLON CA SCREENING 07/14/2027 07/14/2017, 07/26/2014, 07/26/2014 Colorectal Cancer Screening 07/14/2027 BONE DENSITY TESTING Completed 11/12/2021, 08/05/2017, 08/05/2017 (Done Outside Per Report) HIB VACCINE Aged Out No longer eligi ble based on patient's age to complete this topic HPV VACCINE Aged Out No longer eligi ble based on patient's age to complete this topic MENINGOCOCCAL (Group B) VACCINE Aged Out No longer eligible based on patient's age to complete this topic MENINGOCOCCAL VACCINE Aged Out No dionicio fabien eligible based on patient's age to complete this topic Medical Devices Implanted Type Area Glass Technician Device Identifier Shelf Expiration Date Model / Serial / Lot Syr Inj Coaptite 1cc Implanted:Qty: 1 on 11/22/2012 by Thong Grant MD at [facility] [employer] 07/07/2015 [id number] / / [id number] Syr Inj Coaptite 1cc Implanted:Qty: 1 on 11/22/2012 by Thong Grant MD at [facility] [employer] 04/06/2015 [id number] / / [id number] Procedures Procedure Name Priority Date/Time Associated Diagnosis Comments URINALYSIS AUTO - POINT OF CARE Routine 08/06/2024 2:34 PM AIR POLLUTION SPECIALIST Urinary tract infection without hematuria, site unspecified CULTURE URINE Routine 08/06/2024 2:33 PM AIR POLLUTION SPECIALIST Urinary tract infection without hematuria, site unspecified URINALYSIS AUTO - POINT OF CARE Routine 06/21/2024 2:30 PM AIR POLLUTION SPECIALIST UTI symptoms CULTURE URINE Routine 06/21/2024 2:10 PM AIR POLLUTION SPECIALIST UTI symptoms MAMMOGRAM 11/03/2022 from Last 3 Months or Most Recently Relevant to Health Maintenance Results * URINALYSIS AUTO - POINT OF CARE (08/06/2024 2:34 PM AIR POLLUTION SPECIALIST) Only the most recent of2 resultswithin the time period is included. Clarity UA POCT cloudy [facility] Color UA POCT straw [facility] Leukocyte UA 3+ Negative [facility] Nitrite UA POCT neg Negative [facility] Urobilinogen UA 0.1 0.1 - 1.0 [facility] Protein UA POCT 1+ Negative [facility] pH UA 6.0 5.0 - 8.0 pH units [facility] Blood UA trace Negative [facility] Specific [place] UA POCT 1.020 1.002 - 1.030 [facility] Ketone UA neg Negative [facility] Bilirubin UA POCT neg Negative [facility] Glucose UA neg Negative [facility] Urine URINE / Unknown 08/06/2024 2 :34 PM AIR POLLUTION SPECIALIST Thong Grant MD LAB - POINT OF CARE ORDERABLES [facility] [address] , [facility] [address] [phone] * (ABNORMAL) CULTURE URINE (08/06/2024 2:33 PM AIR POLLUTION SPECIALIST) Only the most recent of2 resultswithin the time period is included. Urine Culture Routine Final report(A) [facility] INSURANCE BILL Comment: Performed at: ?? - Lab[address] ??[id number] Development Executive: Fortino Goldstein PhD, Phone: ??[phone] Result 1 Escherichia coli(A) [facility] INSURANCE BILL Comment: Cefazolin <=4 ug/mL Cefazolin with an NOLAN <=16 predicts susceptibility to the oral agents cefaclor, cefdinir, cefpodoxime, cefprozil, cefuroxime, cephalexin, and loracarbef when used for therapy of uncomplicated urinary tract infections due to E. coli, Klebsiella pneumoniae, and Proteus mirabilis. Multi-Drug Resistant Organism Greater than 100,000 colony forming units per mL Antimicrobial Susceptibility Comment [facility] INSURANCE BILL Comment: ? S = Susceptible; I = Intermediate; R = Resistant ? P = Positive; N = Negative ?MICS are expressed in micrograms per mL ?? Antibiotic ? RSLT#1 ?RSLT#2 ?RSLT#3 ?RSLT#4 Amoxicillin/Clavulanic Acid ?S Ampicillin ? R Cefepime ? S Ceftriaxone ?S Cefuroxime ? S Ciprofloxacin ?R Ertapenem ?S Gentamicin ? R Imipenem ? S Levofloxacin ? R Meropenem ?S Nitrofurantoin ? S Piperacillin/Tazobactam ?S Tetracycline ? S Tobramycin ? I Trimethoprim/Sulfa ? R Urine URINE SPECIMEN OBTAINED BY CLEAN CATCH PROCEDURE / Unknown 08/06/2024 2:33 PM AIR POLLUTION SPECIALIST 08/06/2024 Comment:Urine - clean catch R Narrative [facility] INSURANCE BILL - 08/09/2024 5:07 PM AIR POLLUTION SPECIALIST Performed at: ??01 - [facility] [address] [place], [place] ??[id number] Development Executive: Fortino Goldstein PhD, Phone: ??[phone] Thong Grant MD LAB - MICROBIOLOGY O RDERABLES [facility] INSURANCE BILL [address] [place] [phone] * MAMMOGRAM (11/03/2022) Anatomical Region Laterality Modality Other 11/03/2022 Narrative 11/03/2022 Ordered by an unspecified provider. Scanned Document SCANNING ONLY from Last 3 Months or Most Recently Relevant to Health Maintenance Advance Directives * FULL RESUSCITATION (Latest Code Status on File) Date Activated Date Inactivated Comments 11/22/2012 11:32 AM 11/22/2012 8:49 PM Care Teams Sterile Process Tech Relationship Specialty Start Date End Date Vasquez Ashley DO [address] [place] [address] PCP - General Internal Medicine 11/17/12 Thong Grant MD [address] [place] [phone] Grader Marker Obstetrics and Gynecology 07/16/16 Clarice Fleming MD [address] [place] [phone] Insurance Claims Analyst Rheumatology 07/21/17
--- OUTSIDE RECORDS SUMMARY | 2024-09-04 16:17 | XMS_ITS | Clinical Summary ---
Author Organization [facility] Address [address] [id number] Care Team Providers Care Auto Winder Name Role Phone Vasquez Ashley MD Primary Care Provider [phone] Clarice Fleming MD Unavailable Mary Verdugo NP Unavailable + Allergies Active Allergy Reactions Criticality Noted Date Comments Adhesive Tape-Silicones Itching High 03/28/2019 Aspirin Itching,Other (See comments) High 07/17/2014 Other reaction(s): GI Bleeding (moderate to severe) Reaction: itching, ??, Other reaction(s): GI Bleeding (moderate to severe) Reaction: itching,?, Cefuroxime Unknown 11/21/2012 Chest tightenss Cefuroxime Axetil Hives Medium 07/17/2014 Cephalosporins Itching Low 11/21/2012 Itching Clindamycin Hydrocodone-Acetaminoph en Itching Reaction: PRURITIS, Ibuprofen Angioedema,Itching,O t her (See comments),Swelling High 11/21/2012 Other reaction(s): GI Problems (moderate to severe) Reaction: PRURITIS, ??, Reaction: PRURITIS, ??, , Reaction: mouth swelling, ??, , Motrin/Ibuprofen/ Advil/ Naproxen - Mouth swelling/itching Levofloxacin Palpitations 11/21/2012 Muscle spasms Reaction: heart racing, ??, Oxaprozin Other (See comments),Unknown Low 03/28/2019 Penicillins Itching Low 11/21/2012 Pollen Extracts Other (See comments) Reaction: WATERY EYES, TEAR, Propoxyphene-Acetaminop hen Ramipril Unknown High 07/17/2014 Other reaction(s): Altered Heart Rate (moderate to severe) Shellfish Containing Products Nausea And Vomiting Medium 03/28/2019 Shrimp Vomiting High Reaction: Vomiting, Sulfamethoxazole-Trimet hoprim Other (See comments) High 03/28/2019 Tightness in chest Tolmetin Itching,Swelling High 11/21/2012 Swelling/itching Medications hydroCHLOROthia zide (HYDRODIURIL) 50 mg tablet take 1 tablet (50MG) by oral route every day 0 3 Active montelukast (SINGULAIR) 10 mg tablet take 1 tablet (10MG) by oral route every day in the evening 0 3 Active potassium chloride ER (KLOR-CON 10) 10 mEq CR tablet take 1 tab po qd 0 3 Active vitamin B complex capsule Take 1 tablet by mouth Active fluticasone propion-salmete roL (ADVAIR DISKUS) 100-50 mcg/dose diskus inhaler Inhale 2 puffs Activ e magnesium amino acid chelate (MAGONATE) 27 mg tabletIndicatio ns:hypomagnesem ia Take 1 tablet (27 mg of elemental magnesium total) by mouth Active nitrofurantoin (MACRODANTIN) 100 mg capsule Activ e cyanocobalamin (Vitamin B-12) 100 mcg tabletIndicatio ns:Prevention of Vitamin B12 Deficiency Active gemfibrozil (LOPID) 600 mg tablet Active hydroxychloroqu ine (PLAQUENIL) 200 mg tablet Take 1 tablet (200 mg total) by mouth 2 (two) times a day Active traMADol (ULTRAM) 50 mg tablet TAKE 1 TABLET EVERY 12 HOURS NEEDED. Active tiZANidine (ZANAFLEX) 4 mg tabletIndicatio ns:Muscle Spasm Take 1 tablet (4 mg total) by mouth every 8 (eight) hours as needed for muscle spasms [address] (PROTONIX) 40 mg EC tabletIndicatio ns:Laryngophary ngeal reflux TAKE 1 TABLET(40 MG) BY MOUTH TWICE DAILY 60 tablet 3 0 Active mecobal/levomef olat Ca/B6 phos (METANX ORAL) Take by mouth 2 (two) times a day Active albuterol HFA (PROVENTIL HFA,VENTOLIN HFA,PROAIR HFA) 90 mcg/actuation inhaler Inhale 2 puffs every 6 (six) hours as needed for wheezing Active meclizine (ANTIVERT) 12.5 mg tablet Take 1 tablet (12.5 mg total) by mouth 3 (three) times a day as needed for dizziness Active golimumab (SIMPONI) 50 mg/0.5 mL pen injector Inject under the skin Active metoprolol tartrate (LOPRESSOR) 25 mg immediate release tablet Take 1 tablet (25 mg total) by mouth 2 (two) times a day 60 tablet 11 2 Active methocarbamoL (ROBAXIN) 500 mg tablet Take 1 tablet (500 mg total) by mouth every 6 (six) hours as needed 2 Active levothyroxine (SYNTHROID) 50 mcg tablet Take 1 tablet (50 mcg total) by mouth daily 3 Active biotin 5 mg tablet Take 1 capsule by mouth daily Active FeroSuL 325 mg (65 mg iron) tablet Take 1 tablet (325 mg total) by mouth daily 3 Active aspirin (Adult Low Dose Aspirin) 81 mg enteric coated tablet Take 1 tablet (81 mg total) by mouth daily [address] (CYMBALTA) 20 mg capsule Take 1 capsule (20 mg total) by mouth daily Active fluticasone propionate (FLONASE) 50 mcg/actuation nasal sprayIndication s:Allergic Rhinitis Administer 1 spray into each nostril daily Active cholecalciferol (VITAMIN D-3) 73061 unit capsule Take 1 capsule (10,000 Units total) by mouth daily Active lisinopriL (PRINIVIL,ZESTR IL) 5 mg tablet Take 1 tablet (5 mg total) by mouth daily 30 tablet 4 11/25/19 25 Active escitalopram (LEXAPRO) 10 mg tablet Take 1 tablet (10 mg total) by mouth daily Active Active Problems Problem Noted Date Diagnosed [...] 08/25/2017 Assessment & Plan (08/25/2017 9:09 AM ADMINISTRATIVE PROJECT COORDINATOR): She is allergic to [place] and thus [...] 08/25/2017 Assessment & Plan (08/25/2017 9:15 AM ADMINISTRATIVE PROJECT COORDINATOR): Since her last visit she slipped in [...] today. Assessment & Plan (08/25/2017 9:04 AM ADMINISTRATIVE PROJECT COORDINATOR): Will continue to monitor blood work Scabies [...] and reaching remission. She will contact her software systems architect and oncologist in regards to their level [...] sooner if needed. Pt seen w/ Leora Dianna, PA-C Assessment & Plan (08/25/2017 9:23 AM ADMINISTRATIVE PROJECT COORDINATOR): She is currently having a flare of [...] spondylosis with radiculopathy, lumbar reg ion 04/25/2012 Resolved Problems Problem Noted Date Diagnosed Date Resolved Date Menopause 01/11/2018 02/02/2019 Encounter for long-term (cur rent) use of other medications 03/11/2017 08/25/2017 Malignant neoplastic disease (CMS/HCC) 05/17/2014 02/02/2019 Overview (11/11/2016): Cancer Immunizations Name Administration Dates Next Due Influenza, Trivalent, Recomb inant, Egg Free, Preservative Free, Antibiotic Free, IM (FLUBLOK) 06/05/2014 Surgical History Surgery Date Site/Laterality Comments HYSTERECTOMY 08/08/1993 - 08/07/1994 Hysterectomy and bladder repair BLADDER REPAIR bladder repair HERNIA REPAIR 08/08/1993 - 08/07/1994 Abdominal hernia repair BIOPSY LIVER 10/02/2014 N/A Steatohepatitis, cirrhosis CHOLECYSTECTOMY 08/08/1978 - 08/07/1979 APPENDECTOMY ELBOW SURGERY 08/08/1997 - 08/07/1998 tennis elbow THUMB SURGERY 08/08/1997 - 08/07/1998 Right CARPAL TUNNEL RELEASE 08/08/1997 - 08/07/1998 Right LIPOMA RESECTION Bilateral Fatty tumor removal, 05/10 left axilla, 09/19 bilateral arms, 08/14/15 chest wall and rt. 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 Hx Other Medical back or spine p roblems Hx Other Medical dry mouth Hx Other Medical carpal tunnel Hx Other Medical tennis elbow Hx Other Medical trigger finger Hx Other Medical breaset cancer Hx Other Medical GI problems Hx Other Medical lymphademia Obesity Chronic pain Rheumatoid arthritis (HCC) Racing heart beat Family History Medical History Relation Name Comments Diabetes Brother Diabetes mellit us; legally blind Brother Maggie's syndro me LHON Other Daughter 2 hypoglycemia; Diabetes Father Diabetes mellit us; Heart attack Father Breast cancer Father's Sister 1 Stomach cancer Maternal Grandfather old age Maternal Grandmother Heart disease Mother Hypertension Mother Hypertension; Kidney cancer Mother age 88 fr om stroke after procedure Rheum arthritis Mother's Brother 2 Rheuma toid arthritis; Rheum arthritis Mother's Sister 2 Rheumat oid arthritis; Hypertension Other 1 Family history of Hypertension; Diabetes Other 2 Family history of Diabetes mellitus; possible throat cancer Paternal Grandfather unknown for sure, smoked a pipe Kidney disease Paternal Grandmother Relation Name Status Comments Brother Alive Daughter 1 Alive Daughter 2 Alive Father Father's Sister 1 Father's Sister 2 Maternal Grandfather Maternal Grandmother Alive Mother Mother's Brother 1 Alive Mother's Brother 2 Mother's Sister 1 Alive Mother's Sister 2 Other 1 Other 2 Paternal Grandfather Paternal Grandmother Sister Alive Son Alive Social History Tobacco Use Types Packs/Day Years Used Date Smoking Tobacco: Never Smokeless Tobacco: Never Tobacco Cessation:Counseling Given: Not Answered Alcohol Use Standard Drinks/Week Comments No 0 (1 standard drink = 0.6 oz pur e alcohol) Personal Safety Answer Date Recorded Have you ever been in or are you currently in a harmful physical or emotional relationship or is someone making you feel afraid or unsafe? 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 [employer] Not on file Not on f ile Not on file Obstetrics History Last Filed Vital Signs Vital Sign Reading Time Taken Comments Blood Pressure 158/75 05/30/2024 9:58 AM CDT Pulse 68 05/30/2024 9:58 AM CDT Temperature 36.7 ??C (98 ??F) 11/09/2023 10:14 AM CDT Respiratory Rate 16 11/09/2023 10:14 AM CDT Oxygen Saturation 99% 05/30/2024 9:58 AM CDT Inhaled Oxygen Concentration - - Weight 85.7 kg (189 lb) 05/30/2024 9:58 AM CDT Height 157.5 cm (5' 2 ) 05/30/2024 9:58 AM CDT Body Mass Index 34.57 05/30/2024 9:58 AM CDT Plan of Treatment Health Maintenance Due Date Last Done Comments Colon Cancer Screening-Colonoscopy 1950 Depression Screening 1950 Hepatitis C Screening 1950 Zoster Vaccine (1 of 2) 12/31/1970 Well Visit 65+ 12/31/2016 Pneumococcal vaccine 65+ (2 of 2 - PCV) 12/23/2017 12/23/2016 Fall Risk Assessment 05/01/2020 05/01/2019, 04/25/2019, 11/06/2018, Additional history exists Osteoporosis Screening-Bone Density Scan 11/13/2023 11/12/2021, 08/05/2017 Influenza Vaccine (#1) 2024 06/23/2017, 2013 Breast Cancer Screening-Mammogram 11/07/2024 11/08/2023, 11/03/2022, 10/28/2021, Additional history exists DTaP/Tdap/Td Vaccine (2 - Td or Tdap) 12/23/2026 12/23/2016 Goals Goal Patient Goal Type Associated Problems Recent Progress Patient-Stated? Author CCM Chronic Pain Care Plan Chronic Care Management No Ximena Greene, RN Note: Problem: Chronic Pain Goals: 1. Minimize further functional decline 2. Maximize quality of life 3. Control pain Strategies: - Activity/exercise program recommendation - Conservative stepwise pain medicine strategy with multi-disciplinary approach - Recommend healthy lifestyle strategies and compensatory methods as needed Reduce the likelihood of falling Lifestyle No Chelsi Calvo, RN Note: Below are four things you can [...] on stairs Contact your local community or senior center for information on exercise, fall prevention programs, or options for improving home safety. Procedures Procedure Name Priority Date/Time Associated Diagnosis Comments SCREENING MAMMOGRAM BILATERAL W EUSEBIO Schedule Routine, Read Routine (OP Routine) 11/08/2023 9:34 AM CDT Malignant neoplasm of female breast, unspecified estrogen receptor status, unspecified laterality, unspecified site of breast (HCC) Malignant neoplasm of upper-outer quadrant of right breast in female, estrogen receptor positive (HCC) Screening mammogram for breast cancer DEXA AXIAL SKELETON BONE DENSITY 1 OR MORE SITES Schedule Routine, Read Routine (OP Routine) 11/12/2021 2:58 PM CDT Malignant neoplasm of female breast, unspecified estrogen receptor status, unspecified laterality, unspecified site of breast (HCC) Postmenopausal from Last 3 Months or Most Recently Relevant to Health Maintenance Results * Screening Mammogram Bilateral W Eusebio (11/08/2023 9:34 AM CDT) Anatomical Region Laterality Modality Breast Bilateral Mammography Narrative 11/09/2023 10:30 AM CDT Mammogram Technique: Bilateral Digital Breast Tomosynthesis, Bilateral C-view 2D Screening mammogram. ??Views obtained: ??bilateral craniocaudal and bilateral mediolateral oblique. ??Computer Aided Detection was performed. Mammogram Findings: The present examination has been compared to prior imaging studies performed at [facility] on 09/03/2020, 10/28/2021 and 11/03/2022. There are scattered areas of fibroglandular density. Finding 1: ??There is a focal asymmetry in the posterior of the left breast at 3 o'clock. Finding 2: ??There are post breast conservation therapy changes in the right breast. Finding remains unchanged from the prior study. Impression: Finding 1: ??Focal asymmetry in the left breast requires additional evaluation. Diagnostic mammogram and possible ultrasound of the left breast are recommended at this time. Finding 2: ??Post breast conservation therapy changes in the right breast are benign. OVERALL FINAL ASSESSMENT: BI-RADS CATEGORY 0: ??Incomplete: ??Need additional imaging evaluation. Benita Fajardo NP IMG MAMMO PROCEDURES Edited Res ult - Final * Dexa Axial Skeleton Bone Density 1 or 2 Site (11/12/2021 2:58 PM CDT) Anatomical Region Laterality Modality Body N/A Digital Radiogra phy 11/12/2021 3:21 PM CDT Impressions 11/12/2021 4:40 PM CDT ?? 1. The bone mineral density of the lumbar spine is mildly decreased. There has been a statistically significant decrease in bone mineral density since the baseline examination of 08/05/2017. ?? 2. The bone mineral density of the left femoral neck is normal. ?? 3. The bone mineral density of the left total hip is normal. There has been a statistically significant decrease in bone mineral density since the baseline examination of 08/05/2017. ?? 4. Overall, the above findings are diagnostic of low bone mass (osteopenia) by WHO criteria. 5. Calculation of fracture risk using the FRAX model is not appropriate in certain settings. ??It was not performed in this patient because the patient met the following condition(s): Interfering medications General comments regarding interpretation of bone density measurements: ? A) ??In children, premenopausal woman and males under age 50 not at increased risk for fractures only Z-scores, not T-scores are used to indicate risk. ??A Z-score above -2.0 is defined as within the expected range for age and Z-score at or less than -2.0 is below the expected range for age . ??A Z-score below the expected range for age in a patient with recent fractures and/or chronic corticosteroid treatment is consistent with a diagnosis of osteoporosis. ? B) ??In post menopausal women and males over 50, comparison of the measured bone mineral density with the average value in young normal subjects (the T-score ) has been found to be useful in assessing fracture risk. ??Fracture risk approximately doubles for each 1.0 standard deviation (SD) in individual's hip or spine bone mineral density is below the average value of young normal subjects. ??The World Health Organization (WHO) has defined T-scores of -1.0 to -2.5 as diagnostic of low bone mass (OSTEOPENIA), and T-scores of -2.5 or lower to be diagnostic of OSTEOPOROSIS, based on the site of lowest bone density. ? Note that there will be a change in reporting format and reference databases as patients move from the younger population (group A) to the older population (group B) The National Osteoporosis Foundation (www.nof.org) recommends adequate intake of calcium and vitamin D and regular weight-bearing exercise in all patients. ??They recommend pharmacologic treatment in postmenopausal women and men age 50 and older presenting with any of the following: ? 1) ? Osteoporosis, after appropriate evaluation to exclude secondary causes. ? 2) ? A hip or vertebral (clinical or radiographic) fracture, regardless of the bone density. ? 3) ? Low bone mass (Osteopenia) and one or more of: other prior fractures, secondary causes associated with high risk of fracture (such as glucocorticoid use or total immobilization), or computed high risk of fracture (10-yr probability of hip fracture >= 3% or a 10-yr probability of any major osteoporosis-related fracture >= 20% based on the [place].-adapted WHO algorithm), available at http://www.shef.ac.uk/FRAX). Dictated by: Jeff Greenwood MD The radiology attending physician has personally reviewed this study, and had reviewed and/or edited this written report and agrees with it. Electronically signed by: Yelena Recinos M.D. Narrative 11/12/2021 4:40 PM CDT BONE DENSITOMETRY OF THE SPINE AND HIP ?? DATE OF STUDY: ??11/12/2021 ?? HISTORY: ??71-year-old postmenopausal woman with rheumatoid arthritis, cirrhosis (nonalcoholic steatohepatitis) and breast cancer. ??She underwent total hysterectomy at the age of 49. ??She is being treated with calcium, vitamin D, and tamoxifen. ??Evaluate bone mineral density. ?? Additional risk factors for fracture: Cirrhosis ?? FINDINGS (SPINE): The bone mineral density of L2, L3, L4 was assessed by dual-energy x-ray absorptiometry. ??L1 was excluded from analysis due to degenerative sclerotic change. ??The average bone mineral density within this region is 0.937 gm/sq-cm. This is 0.9 standard deviations above the mean of the average bone mineral density for age- and gender-matched subjects (the Z-score). It is 1.3 standard deviations below the mean peak bone mineral density in young adults (the T-score). ?? FINDINGS (FEMORAL NECK): The bone mineral density of the left femoral neck was assessed by dual-energy x-ray absorptiometry. The average bone mineral density within the femoral neck region is 0.841 gm/sq-cm. This is 1.7 standard deviations above the mean of the average bone mineral density for age- and gender-matched subjects (the Z-score). It is 0.1 standard deviations below the mean peak bone mineral density in young adults (the T-score). ?? FINDINGS (TOTAL HIP): The bone mineral density of the left hip was assessed by dual-energy x-ray absorptiometry. The average bone mineral density within the total hip region is 0.960 gm/sq-cm. This is 1.6 standard deviations above the mean of the average bone mineral density for age- and gender-matched subjects (the Z-score). It is 0.1 standard deviations above the mean peak bone mineral density in young adults (the T-score). ?? SUMMARY OF CURRENT RESULTS: Region ? BMD ?T-score ??Z-score ?? AP Spine (L2, L3, L4) ? 0.937 ?? -1.3 ?0.9 ? Femoral Neck (Left) ?0.841 ?? -0.1 ?1.7 ? Total Hip (Left) ? 0.960 ?0.1 ?1.6 ? COMPARISON WITH PREVIOUS RESULTS Region ? Age ??BMD ?? T-score ??BMD Change ? BMD Change Exam Date ? g/cm2 ?vs Baseline ?vs Previous AP Spine (L2-L4) 11/12/2021 ??71 ??0.937 ?-1.3 ??-0.054 (-5.5%) -0.054 (-5.5%) 08/05/2017 ??67 ?0.991 ?-0.8 ? Total Hip(Left) 11/12/2021 ??71 ??0.960 ? 0.1 ??-0.043 (-4.3%) -0.043 (-4.3%) 08/05/2017 ??67 ?1.003 ? 0.5 ? *Denotes significance at 95% confidence level ?? Procedure Note Yelena Recinos MD - 11/12/2021 BONE DENSITOMETRY OF THE SPINE AND HIP DATE OF STUDY: 11/12/2021 HISTORY: 71-year-old postmenopausal woman with rheumatoid arthritis, cirrhosis (nonalcoholic steatohepatitis) and breast cancer. She underwent total hysterectomy at the age of 49. She is being treated with calcium, vitamin D, and tamoxifen. Evaluate bone mineral density. Additional risk factors for fracture: Cirrhosis FINDINGS (SPINE): The bone mineral density of L2, L3, L4 was assessed by dual-energy x-ray absorptiometry. L1 was excluded from analysis due to degenerative sclerotic change. The average bone mineral density within this region is 0.937 gm/sq-cm. This is 0.9 standard deviations above the mean of the average bone mineral density for age- and gender-matched subjects (the Z-score). It is 1.3 standard deviations below the mean peak bone mineral density in young adults (the T-score). FINDINGS (FEMORAL NECK): The bone mineral density of the left femoral neck was assessed by dual-energy x-ray absorptiometry. The average bone mineral density within the femoral neck region is 0.841 gm/sq-cm. This is 1.7 standard deviations above the mean of the average bone mineral density for age- and gender-matched subjects (the Z-score). It is 0.1 standard deviations below the mean peak bone mineral density in young adults (the T-score). FINDINGS (TOTAL HIP): The bone mineral density of the left hip was assessed by dual-energy x-ray absorptiometry. The average bone mineral density within the total hip region is 0.960 gm/sq-cm. This is 1.6 standard deviations above the mean of the average bone mineral density for age- and gender-matched subjects (the Z-score). It is 0.1 standard deviations above the mean peak bone mineral density in young adults (the T-score). SUMMARY OF CURRENT RESULTS: Region BMD T-score Z-score AP Spine (L2, L3, L4) 0.937 -1.3 0.9 Femoral Neck (Left) 0.841 -0.1 1.7 Total Hip (Left) 0.960 0.1 1.6 COMPARISON WITH PREVIOUS RESULTS Region Age BMD T-score BMD Change BMD Change Exam Date g/cm2 vs Baseline vs Previous AP Spine (L2-L4) 11/12/2021 71 0.937 -1.3 -0.054 (-5.5%) -0.054 (-5.5%) 08/05/2017 67 0.991 -0.8 Total Hip(Left) 11/12/2021 71 0.960 0.1 -0.043 (-4.3%) -0.043 (-4.3%) 08/05/2017 67 1.003 0.5 *Denotes significance at 95% confidence level IMPRESSION: 1. The bone mineral density of the lumbar spine is mildly decreased. There has been a statistically significant decrease in bone mineral density since the baseline examination of 08/05/2017. 2. The bone mineral density of the left femoral neck is normal. 3. The bone mineral density of the left total hip is normal. There has been a statistically significant decrease in bone mineral density since the baseline examination of 08/05/2017. 4. Overall, the above findings are diagnostic of low bone mass (osteopenia) by WHO criteria. 5. Calculation of fracture risk using the FRAX model is not appropriate in certain settings. It was not performed in this patient because the patient met the following condition(s): Interfering medications General comments regarding interpretation of bone density measurements: A) In children, premenopausal woman and males under age 50 not at increased risk for fractures only Z-scores, not T-scores are used to indicate risk. A Z-score above -2.0 is defined as within the expected range for age and Z-score at or less than -2.0 is below the expected range for age . A Z-score below the expected range for age in a patient with recent fractures and/or chronic corticosteroid treatment is consistent with a diagnosis of osteoporosis. B) In post menopausal women and males over 50, comparison of the measured bone mineral density with the average value in young normal subjects (the T-score ) has been found to be useful in assessing fracture risk. Fracture risk approximately doubles for each 1.0 standard deviation (SD) in individual's hip or spine bone mineral density is below the average value of young normal subjects. The World Health Organization (WHO) has defined T-scores of -1.0 to -2.5 as diagnostic of low bone mass (OSTEOPENIA), and T-scores of -2.5 or lower to be diagnostic of OSTEOPOROSIS, based on the site of lowest bone density. Note that there will be a change in reporting format and reference databases as patients move from the younger population (group A) to the older population (group B) The National Osteoporosis Foundation (www.nof.org) recommends adequate intake of calcium and vitamin D and regular weight-bearing exercise in all patients. They recommend pharmacologic treatment in postmenopausal women and men age 50 and older presenting with any of the followin) Osteoporosis, after appropriate evaluation to exclude secondary causes. 2) A hip or vertebral (clinical or radiographic) fracture, regardless of the bone density. 3) Low bone mass (Osteopenia) and one or more of: other prior fractures, secondary causes associated with high risk of fracture (such as glucocorticoid use or total immobilization), or computed high risk of fracture (10-yr probability of hip fracture >= 3% or a 10-yr probability of any major osteoporosis-related fracture >= 20% based on the [place].-adapted WHO algorithm), available at http://www.shef.ac.uk/FRAX). Dictated by: Jeff Greenwood MD The radiology attending physician has personally reviewed this study, and had reviewed and/or edited this written report and agrees with it. Electronically signed by: Yelena Recinos M.D. Benita Fajardo [employer] DXA PROCEDURES Final Result from Last 3 Months or Most Recently Relevant to Health Maintenance Insurance MEDICARE [facility] TRADITIONAL MEDICARE [facility] MEDICARE MEDICARE Care Teams Auto Winder Relationship Specialty Start Date End Date Vasquez Ashley MD [address] [place], [place] [id number] PCP - General 11/05/16 [place] [address] [facility] [address] [place], [place] [id number] Rheumatology 03/25/17 [place] [address] [facility] [address] [place] [address] Nurse Practitioner Rheumatology 01/27/22
--- OUTSIDE RECORDS SUMMARY | 2024-09-04 16:17 | XMS_ITS | Encounter Summary ---
Author Organization [facility] Healthcare Address [address] [place] [address] Care Team Providers Care Hide Buffer Name Role Phone Vasquez Ashley MD Primary Care Provider [phone] Clarice Fleming MD Unavailable Ramses Rosa MD Unavailable [phone] Mary Verdugo NP Unavailable + Encounter Details Date Type Department Care Team (Late st Contact Info) Description 11/03/2018 Telephone [facility] [address] [facility] [address] [place] [address] Amanda Brady MD [address] [facility] [place] [address] Social History Tobacco Use Types Packs/Day Years Used Date Smoking Tobacco: Never Smokeless Tobacco: Never Alcohol Use Standard Drinks/Week Comments No 0 (1 standard drink = 0.6 oz pur e alcohol) Comments No Sex and Gender Information Value Date Recorded Sex Assigned at Not on file Legal Sex Female 9:12 AM [employer] Gender Identity Not on file Sexual Orientation [...] on stairs Contact your local community or [facility] for information on exercise, fall prevention programs, or options for improving home safety. documented as of this encounter Visit Diagnoses Not on filedocumented in this encounter Additional Health Concerns Infection Onset Date Last Indicated Resolved Time COVID: Suspected 11/24/2022 11/25/2022 11/25/2022 3:28 AM CDT documented as of this encounter Care Teams Hide Buffer Relationship Specialty Start Date End Date Vasquez Ashley MD [address] [facility] [address] [place] [address] PCP - General 11/05/16 [place] [id number] [facility] [address] [place] [address] Rheumatology 03/25/17 Ramses Rosa MD [address] [facility] [address] [place] [address] Medical Oncology 03/25/17 09/02/20 [place] [address] [facility] [address] [place] [address] Nurse Practitioner Rheumatology 01/27/22 documented as of this encounter
--- OUTSIDE RECORDS SUMMARY | 2024-09-04 16:17 | XMS_ITS | Clinical Summary ---
Author Organization [facility] Address [address] [place] [address]. [place], [place] [id number] [place] [id number] Care Team Providers Care Pile Driving Superintendent Name Role Phone Unavailable Primary Care Provider Unavailabl e Social History Tobacco Use Types Packs/Day Years Used Date Smoking Tobacco: Never Assessed Comments Unknown Sex and Gender Information Value Date Recorded Sex Assigned at Not on file Legal Sex Female 6:18 PM CDT Gender Identity Not on file Sexual Orientation Not on file Plan of Treatment Health Maintenance Due Date Last Done Comments Colorectal Cancer Screening Colonoscopy (10 Years) 1950 Hepatitis C 12/31/1969 DTaP, Tdap and Td Vaccines ( 1 - Tdap) 12/31/1970 Mammogram Screening 1992 Zoster Vaccines (1 of 2) 12/31/2001 Dexa Scan (General) 12/31/2016 Pneumococcal Vaccine: 65+ Ye ars (1 of 1 - PCV) 12/31/2016 COVID-19 Vaccine ( - 2023-2 5 season) 2024 Influenza Adult (#1) 2024 RSV Immunization or 60+ Years (1 - 1-dose 75+ series) 12/31/2026 Meningococcal B Vaccine Aged Out No l onger eligible based on patient's age to complete this topic Meningococcal Vaccine Aged Out No dionicio fabien eligible based on patient's age to complete this topic RSV Immunizations Under 20 Months Aged Out No longer eligible based on patient's age to complete this topic
--- OUTSIDE RECORDS SUMMARY | 2024-09-04 16:17 | XMS_ITS | Patient Health Summary ---
Author Organization [facility] Address [address] [place] [address] Care Team Providers Care Editorial Intern Name Role Phone Vasquez Ashley Primary Care Provider [phone] Thong Grant MD Unavailable [phone] Clarice Fleming MD Unavailable Note from [facility],non-owned Affiliates and Associated Physician Practices is amultiple site organization consisting of ambulatory clinics and hospital sitesin [place], [place], [place] and [place]. This disclosure is being madepursuant to the Care Everywhere program and may not contain all information available regarding this patient. Last updated 18.[facility] Allergies * Adhesive Sensitivity(Itching) -Medium Criticality * Aspirin(Itching) -High Criticality * Cefuroxime(Chest tightenss) * Cephalosporins(Itching) * Hydrocodone-Acetaminophen(Itching) * Ibuprofen(Itching,Swelling) -High Criticality * Levofloxacin(Muscle spasms) * Nsaids(Itching,Swelling) * Oxaprozin(Unknown) * Penicillins(Itching) * Pollen Extract(Other) -Medium Criticality * Ramipril(Unknown) -High Criticality * Shellfish Allergy(Nausea and/or Vomiting) -Medium Criticality * Sulfamethoxazole W-Trimethoprim(Other) -High Criticality * Tolmetin(Itching,Swelling) -Medium Criticality Medications * Be aware that medications may not be up to date on this document. Alwaysverify current medications with the patient. * quinapril (ACCUPRIL) 10 MG tablet Take 1 (one) tablet by mouth once daily * montelukast (SINGULAIR) 10 MG tablet Take 1 (one) tablet by mouth once daily * potassium chloride (KLOR-CON) 10 MEQ tablet Take 1 (one) tablet by mouth once daily Reported on 07/22/2016 * hydrochlorothiazide (HYDRODIURIL) 50 MG tablet Take 1 (one) tablet by mouth once daily * metoprolol tartrate IR (LOPRESSOR) 25 MG tablet Take 1 (one) tablet by mouth once daily * tiZANidine (ZANAFLEX) 4 MG tablet(Started 05/05/2016) TK 1 T PO TID prn 2 refills left * B Complex Vitamins (VITAMIN-B COMPLEX PO) Take 1 tablet by mouth once daily * Magnesium Gluconate (MAGNESIUM 27 PO) Take 1 tablet by mouth once daily * Fluticasone-Salmeterol (ADVAIR DISKUS IN) Inhale 2 puffs by mouth as needed * GEMFIBROZIL PO Take 600 mg by mouth 2 times daily after meals * hydroxychloroquine (PLAQUENIL) 200 MG tablet Take 1 (one) tablet by mouth 2 times daily Reasons: Rheumatoid Arthritis * diclofenac sodium (PENNSAID) 1.5 % topical solution Apply 40 (forty) drops to affected area 4 times daily * traMADol (ULTRAM) 25 MG TABS tablet Take by mouth every 6 hours as needed * methenamine hippurate (Hiprex) 1 GM tablet(Started 08/06/2024) Take 1 (one) tablet by mouth 2 times daily 3 refills by 08/06/2025 * triamcinolone acetonide (Kenalog) 0.5 % ointment(Started 08/06/2024) Apply to affected area 3 times daily 3 refills by 08/06/2025 Ended Medications* triamcinolone acetonide (Kenalog) 0.5 % ointment(Started 08/16/2022)(Discontinued) APPLY TO AFFECTED AREA 3 TIMES DAILY * nitrofurantoin monohyd macro crystals (Macrobid) 100 MG capsule(Started 08/06/2024)() Take 1 (one) capsule by mouth 2 times daily with morning and evening meal for 5 days Active Problems Problem Noted Date Diagnosed Date Menopause Rheumatoid arthritis Cirrhosis of liver Interstitial cystitis OAB (overactive bladder) Lichen sclerosus et atrophicus of the vulva Social History Tobacco Use Types Packs/Day Years [...] Comments Blood Pressure 120/62 08/06/2024 2:28 PM GLASS DECORATOR Pulse 71 08/31/2017 11:55 AM GLASS DECORATOR Temperature 36.6 ??C (97.9 ??F) 08/31/2017 12:[address] Respiratory Rate 12 08/31/2017 11:55 AM GLASS DECORATOR Oxygen Saturation 98% 08/31/2017 12:33 PM GLASS DECORATOR Inhaled Oxygen Concentration - - Weight 90.7 kg (200 lb) 08/06/2024 2:28 PM GLASS DECORATOR Height 157.5 cm (5' 2 ) 08/06/2024 2:28 PM GLASS DECORATOR Body Mass Index 36.58 08/06/2024 2:28 PM GLASS DECORATOR Medical Devices Implanted Type Area Impress Associate Device Identifier Shelf Expiration Date Model / Serial / Lot Syr Inj Coaptite 1cc Implanted:Qty: 1 on 11/22/2012 by Thong Grant MD at [facility] [employer] 07/07/2015 [id number] / / [id number] Syr Inj Coaptite 1cc Implanted:Qty: 1 on 11/22/2012 by Thong Grant MD at [facility] [employer] 04/06/2015 [id number] / / [id number] Procedures * URINALYSIS AUTO - POINT OF CARE(Performed 08/06/2024) Performed for Urinary tract infection without hematuria, site unspecified * CULTURE URINE(Performed 08/06/2024) Performed for Urinary tract infection without hematuria, site unspecified * URINALYSIS AUTO - POINT OF CARE(Performed 06/21/2024) Performed for UTI symptoms * CULTURE URINE(Performed 06/21/2024) Performed for UTI symptoms * CULTURE URINE(Performed 01/23/2024) Performed for Dysuria * CULTURE URINE(Performed 06/01/2023) Performed for UTI symptoms * CULTURE URINE(Performed 05/13/2023) Performed for Recurrent UTI * URINALYSIS AUTO - POINT OF CARE(Performed 05/13/2023) Performed for Recurrent UTI * MAMMOGRAM(Performed 11/03/2022) * URINALYSIS MICROSCOPIC ONLY REFLEXED(Performed 06/01/2022) Performed for Recurrent UTI * URINALYSIS W/MICROSCOPIC NO CULTURE(Performed 06/01/2022) Performed for Recurrent UTI * CULTURE URINE(Performed 06/01/2022) Performed for Recurrent UTI * URINALYSIS AUTO - POINT OF CARE(Performed 08/28/2021) Performed for Dysuria * CULTURE URINE(Performed 08/28/2021) Performed for Dysuria * CULTURE URINE(Performed 07/16/2021) Performed for Urinary tract infection without hematuria, site unspecified * URINALYSIS AUTO - POINT OF CARE(Performed 07/06/2021) Performed for Urinary tract infection without hematuria, site unspecified * CULTURE URINE(Performed 07/06/2021) Performed for Urinary tract infection without hematuria, site unspecified * LAB RESULTS ORDER(Performed 08/13/2020) * CULTURE URINE(Performed 06/23/2019) Performed for Recurrent UTI * LAB RESULTS ORDER(Performed 06/11/2019) * CULTURE URINE(Performed 05/24/2019) Performed for Urinary tract infection without hematuria, site unspecified * URINALYSIS AUTO - POINT OF CARE(Performed 05/24/2019) Performed for Urinary tract infection without hematuria, site unspecified * CULTURE URINE(Performed 05/10/2019) Performed for Urinary tract infection without hematuria, site unspecified * URINALYSIS AUTO - POINT OF CARE(Performed 05/10/2019) Performed for Urinary tract infection without hematuria, site unspecified * CULTURE URINE(Performed 01/12/2019) Performed for Urinary tract infection without hematuria, site unspecified * URINALYSIS AUTO - POINT OF CARE(Performed 01/12/2019) Performed for Urinary tract infection without hematuria, site unspecified * CULTURE URINE(Performed 12/18/2018) Performed for Urinary tract infection without hematuria, site unspecified * CULTURE URINE(Performed 08/25/2018) Performed for Urinary tract infection without hematuria, site unspecified * URINALYSIS AUTO - POINT OF CARE(Performed 08/25/2018) Performed for Urinary tract infection without hematuria, site unspecified * CULTURE URINE(Performed 02/13/2018) Performed for Interstitial cystitis * URINALYSIS AUTO - POINT OF CARE(Performed 02/13/2018) Performed for Interstitial cystitis * CULTURE URINE(Performed 12/01/2017) Performed for Urinary tract infection without hematuria, site unspecified * URINALYSIS AUTO - POINT OF CARE(Performed 12/01/2017) Performed for Urinary tract infection without hematuria, site unspecified * CULTURE URINE(Performed 11/17/2017) Performed for Urinary tract infection without hematuria, site unspecified * URINALYSIS AUTO - POINT OF CARE(Performed 11/17/2017) Performed for Urinary tract infection without hematuria, site unspecified * CULTURE URINE(Performed 09/05/2017) Performed for Interstitial cystitis, Acute cystitis without hematuria * CARDIAC RHYTHM STRIP ORDER(Performed 09/01/2017) * CYSTOSCOPY WITH BOTOX INJECTION(Performed 08/31/2017) Performed for Interstitial cystitis * MAMMO SCREENING BILATERAL(Performed 08/05/2017) * STATE LAB REPORT RFLXED(Performed 07/21/2017) * CULTURE URINE(Performed 07/21/2017) Performed for Bladder pain, Interstitial cystitis * URINALYSIS AUTO - POINT OF CARE(Performed 07/21/2017) Performed for Bladder pain, Interstitial cystitis * CULTURE URINE(Performed 05/27/2017) Performed for Urinary tract infection without hematuria, site unspecified * URINALYSIS AUTO - POINT OF CARE(Performed 05/27/2017) Performed for Urinary tract infection without hematuria, site unspecified * MAMMOGRAPHY ORDER(Performed 08/04/2016) * CULTURE URINE(Performed 07/22/2016) Performed for Cystitis * CARDIAC RHYTHM STRIP ORDER(Performed 11/23/2012) * CYSTOSCOPY INJECTION IMPLANT MATERIAL SUBURETERIC(Performed 11/22/2012) Performed for Female stress incontinence * MRI THORACIC SPINE WO CONTRAST(Performed 06/27/2009) Performed for Lumbosacral Spondylosis without Myelopathy * MRI LUMBAR SPINE WO CONTRAST(Performed 06/27/2009) Performed for Thoracic or Lumbosacral Neuritis or Radiculitis, Unspecified Results * URINALYSIS AUTO - POINT OF CARE (08/06/2024 2:34 PM GLASS DECORATOR) Only the most recent of14 resultswithin the time period is included. Clarity [...] trace Negative [facility] Specific [place] UA POCT 1.020 1.002 - 1.030 [facility] Ketone UA neg Negative [facility] Bilirubin UA POCT neg Negative [facility] Glucose UA neg Negative [facility] Urine URINE / Unknown 08/06/2024 2 :34 PM GLASS DECORATOR Thong Grant MD LAB - POINT OF CARE ORDERABLES [facility] [address], [address] [phone] * (ABNORMAL) CULTURE URINE (08/06/2024 2:33 PM GLASS DECORATOR) Only the most recent of22 resultswithin the time period is included. Urine Culture Routine Final report(A) [facility] INSURANCE BILL Comment: Performed at: ?? - [address] ??[id number] Hog Buyer: Fortino Goldstein PhD, Phone: ??[phone] Result 1 Escherichia coli(A) [facility] INSURANCE BILL Comment: Cefazolin <=4 ug/mL Cefazolin [...] CATCH PROCEDURE / Unknown 08/06/2024 2:33 PM GLASS DECORATOR 08/06/2024 Comment:Urine - clean catch R Narrative [facility] INSURANCE BILL - 08/09/2024 5:07 PM GLASS DECORATOR Performed at: ??01 - [facility] [place] [id number] [place], [place] ??[id number] Hog Buyer: Fortino Goldstein PhD, Phone: ??[phone] Thong Grant MD LAB - MICROBIOLOGY O RDERACALOS [facility] INSURANCE BILL [address] [place] [address] * MAMMOGRAM (11/03/2022) Anatomical Region Laterality Modality Other 11/03/2022 Narrative 11/03/2022 Ordered by an unspecified provider. Scanned Document SCANNING ONLY * (ABNORMAL) URINALYSIS MICROSCOPIC ONLY REFLEXED (06/01/2022 8:21 AM CDT) WBC UA 6-10(A) 0 - 5 /hpf [facility] INSURANCE BILL RBC UA 0-2 0 - 2 /hpf [facility] INSURANCE BILL Epithelial Cells (non renal) >10(A) 0 - 10 /hpf [facility] INSURANCE BILL Epithelial Cells (renal) NOT AVAILABLE [facility] INSURANCE BILL Comment:Result cannot be obt ained for this observation. Casts ua None seen None seen /lpf [facility] INSURANCE BILL Casts UA NOT AVAILABLE [facility] INSURANCE BILL Comment:Result cannot be obt ained for this observation. Crystals UA NOT AVAILABLE [facility] INSURANCE BILL Comment:Result cannot be obt ained for this observation. Crystals UA NOT AVAILABLE [facility] INSURANCE BILL Comment:Result cannot be obt ained for this observation. Mucus UA NOT AVAILABLE [facility] INSURANCE BILL Comment:Result cannot be obt ained for this observation. Bacteria UA None seen None seen/Few [facility] INSURANCE BILL Yeast UA NOT AVAILABLE [facility] INSURANCE BILL Comment:Result cannot be obt ained for this observation. Trichomonas UA NOT AVAILABLE [facility] INSURANCE BILL Comment:Result cannot be obt ained for this observation. Comment Urine NOT AVAILABLE [facility] INSURANCE BILL Comment: FASTING Result cannot be obtained for this observation. 06/01/2022 8:21 AM CDT 06/01/2022 Narrative Resulting Agency Comment Lab Testing performed at: [facility] [address] [place] [address] ??[facility] [id number] Thong Grant MD LAB - URINALYSIS ORD ERABLES [facility] INSURANCE BILL [address] [place] [address] * (ABNORMAL) URINALYSIS W/MICROSCOPIC NO CULTURE (06/01/2022 8:21 AM CDT) Specific [place] UA 1.018 1.005 - 1.030 [facility] INSURANCE BILL pH UA 6.5 5.0 - 7.5 [facility] INSURANCE BILL Color UA Yellow Yellow [facility] INSURANCE BILL Appearance Clear Clear [facility] INSURANCE BILL Leukocyte UA Trace(A) Negative [facility] INSURANCE BILL Protein UA Negative Negative/Tr oralia [facility] INSURANCE BILL Glucose UA Negative Negative [facility] INSURANCE BILL Ketone UA Negative Negative [facility] INSURANCE BILL Occult Blood Urine Negative Negative [facility] INSURANCE BILL Bilirubin UA Negative Negative [facility] INSURANCE BILL Urobilinogen 0.2 0.2 - 1.0 mg/dL [facility] INSURANCE BILL Nitrite UA Negative Negative [facility] INSURANCE BILL Microscopic Examination Urine See below: [facility] INSURANCE BILL Comment: Microscopic was indicated and was performed. FASTING Microscopic Examination Urine NOT AVAILABLE [facility] INSURANCE BILL Comment: FASTING Result cannot be obtained for this observation. Urine URINE SPECIMEN OBTAINED BY CLEAN CATCH PROCEDURE / Unknown 06/01/2022 8:21 AM CDT 06/01/2022 Narrative Resulting Agency Comment Lab Testing performed at: [facility] [address] ??[facility] [id number] Thong Grant MD LAB - URINALYSIS ORD ERABLES [facility] INSURANCE BILL [address] [place] [address] * LAB RESULTS ORDER (08/13/2020) Only the most recent of2 resultswithin the time period is included. Provider Unknown LAB - THERAPEUTIC DR GOYAL MONITORING ORDERABLES * CARDIAC RHYTHM STRIP ORDER (09/01/2017 10:34 PM GLASS DECORATOR) Only the most recent of2 resultswithin the time period is included. Narrative 09/01/2017 10:34 PM GLASS DECORATOR Ordered by an unspecified provider. Scanned Document CARDIAC SERVICES ORD ERABLES * MAMMO SCREENING BILATERAL (08/05/2017) Anatomical Region Laterality Modality Breast Mammography Thong Grant MD MAMMO ORDERABLES * STATE LAB REPORT RFLXED (07/21/2017 11:45 AM GLASS DECORATOR) [facility] State Lab Report [facility] INSURANCE BILL Comment: Final report received from [facility] laboratory. SALMONELLA AGBENI 07/21/2017 11:4 5 AM GLASS DECORATOR 07/21/2017 Narrative Resulting Agency Comment [facility] [address] [facility] ??[facility] [id number] Thong Grant MD LAB - MICROBIOLOGY O RDERABLES Performing Organization Address City/State/[facility] Co de Phone Number [facility] INSURANCE BILL [address] [place] [address] * MAMMOGRAPHY ORDER (08/04/2016) Anatomical Region Laterality Modality Mammography Thong Grant MD MAMMO ORDERABLES * MRI SPINE THORACIC NON CONTRAST (06/27/2009 4:55 PM GLASS DECORATOR) Anatomical Region Laterality Modality Chest Magnetic Resonan ce 06/27/2009 8:39 PM GLASS DECORATOR Impressions 06/27/2009 8:43 PM GLASS DECORATOR ??Unremarkable MRI examination of the thoracic spine. Narrative 06/27/2009 8:43 PM GLASS DECORATOR MRI THORACIC SPINE WITHOUT CONTRAST from 06/27/2009 INDICATION: ??Pain between shoulder blades. TECHNIQUE: T1-weighted, T2-weighted and STIR sagittal images were obtained. ??T1-weighted coronal images were obtained. T1 and T2-weighted axial images were obtained from T1 through T12. FINDINGS: ??The alignment of the thoracic spine is normal. There is normal signal intensity seen within the marrow space of the thoracic vertebral bodies. ??Disc spaces are preserved. ??No evidence of focal disc protrusion or other impingement on the thecal sac. ??The spinal cord itself appears normal. Procedure Note Siva Montilla MD - 06/27/2009 MRI THORACIC SPINE WITHOUT CONTRAST from 06/27/2009 INDICATION: Pain between shoulder blades. TECHNIQUE: T1-weighted, T2-weighted and STIR sagittal images were obtained. T1-weighted coronal images were obtained. T1 and T2-weighted axial images were obtained from T1 through T12. FINDINGS: The alignment of the thoracic spine is normal. There is normal signal intensity seen within the marrow space of the thoracic vertebral bodies. Disc spaces are preserved. No evidence of focal disc protrusion or other impingement on the thecal sac. The spinal cord itself appears normal. IMPRESSION Unremarkable MRI examination of the thoracic spine. Patricio Gomez MD MR ORDERABLES * MRI SPINE LUMBAR NON CONTRAST (06/27/2009 4:55 PM GLASS DECORATOR) Anatomical Region Laterality Modality Spine Magnetic Resonan ce 06/30/2009 9:50 AM GLASS DECORATOR Impressions 06/30/2009 1:18 PM GLASS DECORATOR 1. Discogenic and facet degenerative changes are present throughout the lumbar spine as described above but do not result in significant central canal stenosis at any level. 2. Facet arthropathy results in mild bilateral lateral recess stenosis from L2-L3 through L4-L5. Neuroforaminal stenosis is present bilaterally at L4-L5 and L5-S1. Narrative 06/30/2009 1:18 PM GLASS DECORATOR EXAM: MRI LUMBAR SPINE WITHOUT CONTRAST INDICATION: Low back pain, lumbar radiculopathy. COMPARISON: None. TECHNIQUE: Sagittal and axial T1 and T2. Sagittal STIR. FINDINGS: There are no comparison radiographs of the lumbar spine available at this time. For the purposes of this examination, it should be assumed that this patient has five lumbar vertebral bodies. Careful correlation between this and the subsequent radiographic examinations of the lumbar spine is recommended to ensure consistent numbering of disc spaces. This is particularly important if surgery is considered. Alignment: Normal. Marrow: Within normal limits. There is no evidence of compression or other vertebral fracture. Spinal cord: Appears normal. Terminates at L1. Disc spaces: There is loss of disc hydration throughout the lumbar spine with mild loss of disc height at L4-L5 and L5-S1 and moderate loss of disc height at L3-L4. Posterior disc bulge is present at T12-L1 and at L1-L2 through L4-L5. The following levels were directly imaged in the axial plane: L5-S1: Facet arthropathy is present bilaterally but does not result in significant central canal or lateral recess stenosis. Extension of disc bulge into neural foramina with facet arthropathy results in mild bilateral neural foraminal stenosis. L4-L5: A diffuse disc bulge is present with bilateral facet arthropathy resulting in mild bilateral lateral recess stenosis, right greater than left. The right neural foramen is mildly narrowed and the left minimally narrowed secondary to extension of disc bulge and facet arthropathy. L3-L4: Bilateral facet arthropathy results in mild bilateral lateral recess stenosis. L2-L3: Facet arthropathy and disc bulge results in mild bilateral lateral recess stenosis. L1-L2: Facet arthropathy does not result in significant stenosis. T12-L1: A small disc protrusion lies eccentric to the left but does not result in significant stenosis. Procedure Note Kala Greenfield Magno - 06/30/2009 EXAM: MRI LUMBAR SPINE WITHOUT CONTRAST INDICATION: Low back pain, lumbar radiculopathy. COMPARISON: None. TECHNIQUE: Sagittal and axial T1 and T2. Sagittal STIR. FINDINGS: There are no comparison radiographs of the lumbar spine available at this time. For the purposes of this examination, it should be assumed that this patient has five lumbar vertebral bodies. Careful correlation between this and the subsequent radiographic examinations of the lumbar spine is recommended to ensure consistent numbering of disc spaces. This is particularly important if surgery is considered. Alignment: Normal. Marrow: Within normal limits. There is no evidence of compression or other vertebral fracture. Spinal cord: Appears normal. Terminates at L1. Disc spaces: There is loss of disc hydration throughout the lumbar spine with mild loss of disc height at L4-L5 and L5-S1 and moderate loss of disc height at L3-L4. Posterior disc bulge is present at T12-L1 and at L1-L2 through L4-L5. The following levels were directly imaged in the axial plane: L5-S1: Facet arthropathy is present bilaterally but does not result in significant central canal or lateral recess stenosis. Extension of disc bulge into neural foramina with facet arthropathy results in mild bilateral neural foraminal stenosis. L4-L5: A diffuse disc bulge is present with bilateral facet arthropathy resulting in mild bilateral lateral recess stenosis, right greater than left. The right neural foramen is mildly narrowed and the left minimally narrowed secondary to extension of disc bulge and facet arthropathy. L3-L4: Bilateral facet arthropathy results in mild bilateral lateral recess stenosis. L2-L3: Facet arthropathy and disc bulge results in mild bilateral lateral recess stenosis. L1-L2: Facet arthropathy does not result in significant stenosis. T12-L1: A small disc protrusion lies eccentric to the left but does not result in significant stenosis. IMPRESSION 1. Discogenic and facet degenerative changes are present throughout the lumbar spine as described above but do not result in significant central canal stenosis at any level. 2. Facet arthropathy results in mild bilateral lateral recess stenosis from L2-L3 through L4-L5. Neuroforaminal stenosis is present bilaterally at L4-L5 and L5-S1. Patricio Gomez MD MR ORDERABLES Care Teams Editorial Intern Relationship Specialty Start Date End Date Vasquez Ashley DO [address] [facility] [address] [place] [address] PCP - General Internal Medicine 11/17/12 Thong Grant MD [address] [place] [address] Discharge Coordinator Obstetrics and Gynecology 07/16/16 Clarice Fleming MD [address] [place] [address] Chiropractor Sole Practitioner Rheumatology 07/21/17
--- OUTSIDE RECORDS SUMMARY | 2024-09-04 16:17 | XMS_ITS | Referral Summary ---
Author Organization [facility] Address [address] [address] Care Team Providers Care Systems Programmer Analyst Name Role Phone Vasquez Ashley MD Primary Care Provider [phone] Clarice Fleming MD Unavailable Mary Verdugo NP [...] each nostril daily Active cholecalciferol (VITAMIN D-3) 30092 unit capsule Take 1 capsule (10,000 Units [...] 08/25/2017 Assessment & Plan (08/25/2017 9:09 AM REGIONAL CLIMATE CHANGE ANALYST): She is allergic to [place] and thus [...] 08/25/2017 Assessment & Plan (08/25/2017 9:15 AM REGIONAL CLIMATE CHANGE ANALYST): Since her last visit she slipped in [...] today. Assessment & Plan (08/25/2017 9:04 AM REGIONAL CLIMATE CHANGE ANALYST): Will continue to monitor blood work Scabies [...] and reaching remission. 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 There [...] signed by: Yelena Recinos M.D. Benita Fajardo NP IM DXA PROCEDURES Final Result from Last 3 Months or Most Recently Relevant to Health Maintenance Insurance MEDICARE [facility] MEDICARE [facility] MEDICARE [facility] MEDICARE Care Teams Systems Programmer Analyst Relationship Specialty Start Date End Date Vasquez Ashley MD [address] [facility] [address] [facility] [address] [place] [address] PCP - General 11/05/16 [place] [address] [facility] [address] [place] [address] Rheumatology 03/25/17 [place] [address] [facility] [address] [place] [address] Nurse Practitioner Rheumatology 01/27/22
--- OUTSIDE RECORDS SUMMARY | 2024-09-04 16:17 | XMS_ITS | Referral Summary ---
Author Organization [facility] Address [address] [facility] [place] [address] Care Team Providers Care Customer Counter Representative Name Role Phone Vasquez Ashley Primary Care Provider Thong Grant MD Unavailable [phone] Clarice Fleming MD Unavailable Source Comments [facility],non-owned Affiliates and Associated Physician Practices is amultiple site organization consisting of ambulatory clinics and hospital sitesin [place], [place], [place]. This disclosure is being madepursuant to the Care Everywhere program and may not contain all information available regarding this patient. Last updated 18.[facility] Encounters Date Type Department Care Team Description 08/06/2024 Travel 08/06/2024 2:00 PM TECHNOLOGY OFFICER Office Visit [facility] - COMPLAINT OPERATOR [address] [place] [address], [address] [address] Thong Grant MD Urinary tract infection without hematuria, site unspecified (Primary Dx); Recurrent UTI; Lichen sclerosus et atrophicus of the vulva 06/21/2024 2:10 PM TECHNOLOGY OFFICER Office Visit [facility] - COMPLAINT OPERATOR [address] [place] [address], [address] [place] [phone] Thong Grant MD UTI symptoms (Primary Dx); Recurrent UTI 06/20/2024 Telephone [facility] - COMPLAINT OPERATOR [address] [facility], [address] [place] [address] Thong Grant MD UTI from Last 3 Months Allergies Active Allergy Reactions Criticality Noted Date [...] Comments Blood Pressure 120/62 08/06/2024 2:28 PM TECHNOLOGY OFFICER Pulse 71 08/31/2017 11:55 AM TECHNOLOGY OFFICER Temperature 36.6 ??C (97.9 ??F) 08/31/2017 12:07 PM C Respiratory Rate 12 08/31/2017 11:55 AM TECHNOLOGY OFFICER Oxygen Saturation 98% 08/31/2017 12:33 PM TECHNOLOGY OFFICER Inhaled Oxygen Concentration - - Weight 90.7 kg (200 lb) 08/06/2024 2:28 PM TECHNOLOGY OFFICER Height 157.5 cm (5' 2 ) 08/06/2024 2:28 PM TECHNOLOGY OFFICER Body Mass Index 36.58 08/06/2024 2:28 PM TECHNOLOGY OFFICER Functional Status Functional Status Response Date of Assess ment Is person deaf or have serious hearing difficult y? No 08/31/2017 Is person blind or have serious difficulty seein g? No 08/31/2017 Does person have serious dif ficulty walking/climbing stairs? No 08/31/2017 Does person have difficulty dressing/bathing? No 08/31/2017 Does person have difficulty doing errands alone? No 08/31/2017 Cognitive Status Response Date of Assessm ent Does person have difficulty concentrating/remembering/making decisions? No 08/31/2017 Plan of Treatment Upcoming Encounters Date Type Department Care Team (Late st Contact Info) Description 08/05/2025 10:20 AM TECHNOLOGY OFFICER Office Visit [facility] - COMPLAINT OPERATOR [address] [place] [address], [address] [place] [address] Thong Grant MD [address] [place] [phone] Medical Devices Implanted Type Area Case Supervisor Device Identifier Shelf Expiration Date Model / Serial / Lot Syr Inj Coaptite 1cc Implanted:Qty: 1 on 11/22/2012 by Thong Grant MD at [facility] [employer] 07/07/2015 [id number] / / [id number] Syr Inj Coaptite 1cc Implanted:Qty: 1 on 11/22/2012 by Thong Grant MD at [facility] [employer] 04/06/2015 [id number] / / [id number] Procedures Procedure Name Priority Date/Time Associated Diagnosis Comments URINALYSIS AUTO - POINT OF CARE Routine 08/06/2024 2:34 PM TECHNOLOGY OFFICER Urinary tract infection without hematuria, site unspecified CULTURE URINE Routine 08/06/2024 2:33 PM TECHNOLOGY OFFICER Urinary tract infection without hematuria, site unspecified URINALYSIS AUTO - POINT OF CARE Routine 06/21/2024 2:30 PM TECHNOLOGY OFFICER UTI symptoms CULTURE URINE Routine 06/21/2024 2:10 PM TECHNOLOGY OFFICER UTI symptoms MAMMOGRAM 11/03/2022 from Last 3 Months or Most Recently Relevant to Health Maintenance Results * URINALYSIS AUTO - POINT OF CARE (08/06/2024 2:34 PM TECHNOLOGY OFFICER) Only the most recent of2 resultswithin the [...] trace Negative [facility] Specific [place] UA POCT 1.020 1.002 - 1.030 [facility] Ketone UA neg Negative [facility] Bilirubin UA POCT neg Negative [facility] Glucose UA neg Negative [facility] Urine URINE / Unknown 08/06/2024 2 :34 PM TECHNOLOGY OFFICER Thong Grant MD LAB - POINT OF CARE ORDERABLES [facility] [address], [address] [phone] * (ABNORMAL) CULTURE URINE (08/06/2024 2:33 PM TECHNOLOGY OFFICER) Only the most recent of2 resultswithin the time period is included. Urine Culture Routine Final report(A) [facility] INSURANCE BILL Comment: Performed at: ?? - [address], [place], [place] [id number] News Editor: Fortino Goldstein PhD, Phone: ??[phone] Result 1 Escherichia coli(A) [facility] INSURANCE BILL [...] CATCH PROCEDURE / Unknown 08/06/2024 2:33 PM TECHNOLOGY OFFICER 08/06/2024 Comment:Urine - clean catch R Narrative [facility] INSURANCE BILL - 08/09/2024 5:07 PM TECHNOLOGY OFFICER Performed at: ??01 - [facility] [address] [place], [place] [id number] News Editor: Fortino Goldstein PhD, Phone: ??[phone] Thong Grant MD LAB - MICROBIOLOGY O RDERABLES Performing Organization Address City/State/[facility] Co de Phone Number [facility] INSURANCE BILL [address] [place] [address] * MAMMOGRAM (11/03/2022) Anatomical Region Laterality Modality Other 11/03/2022 Narrative 11/03/2022 Ordered by an unspecified provider. Scanned Document SCANNING ONLY from Last 3 Months or Most Recently Relevant to Health Maintenance Advance Directives * FULL RESUSCITATION (Latest Code Status on File) Date Activated Date Inactivated Comments 11/22/2012 11:32 AM 11/22/2012 8:49 PM Care Teams Customer Counter Representative Relationship Specialty Start Date End Date Vasquez Ashley DO [address] [facility] [address] [place], [place] [id number] PCP - General Internal Medicine 11/17/12 Thong Grant MD [facility] [address] [place] [address] Instrument Mechanic Obstetrics and Gynecology 07/16/16 Clarice Fleming MD [address] [place] [address] Street Light Cleaner Rheumatology 07/21/17
--- OUTSIDE RECORDS SUMMARY | 2024-09-04 16:17 | XMS_ITS | Encounter Summary ---
Author Organization [facility] Address [address] [place] [address] Care Team Providers Care Supervisor Warping Department Name Role Phone Vasquez Ashley MD Primary Care Provider [phone] Clarice Fleming MD Unavailable Ramses Rosa MD Unavailable [phone] Mary Verdugo NP Unavailable + Encounter Details Date Type Department Care Team (Late st Contact Info) Description 04/24/2019 Telephone [facility] [address] [facility] [address] [place] [address] Amanda Brady MD [address] 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 Author CCM Chronic Pain Care Plan Chronic Care Management No Ximena Greene, MAHENDRA Note: Problem: Chronic Pain Goals: 1. Minimize [...] on stairs Contact your local community or [facility] for information on exercise, fall prevention programs, or options for improving home safety. documented as of this encounter Visit Diagnoses Not on filedocumented in this encounter Additional Health Concerns Infection Onset Date Last Indicated Resolved Time COVID: Suspected 11/24/2022 11/25/2022 11/25/2022 3:28 AM CDT documented as of this encounter Care Teams Supervisor Warping Department Relationship Specialty Start Date End Date Vasquez Ashley MD [address] [facility] [address] [facility] [address] [place] [address] PCP - General 11/05/16 [place] [address] [facility] [address] [place] [address] Rheumatology 03/25/17 Ramses Rosa MD [address] [place] [address] Medical Oncology 03/25/17 09/02/20 [place] [address] [facility] [address] [place] [address] Nurse Practitioner Rheumatology 01/27/22 documented as of this encounter
--- OUTSIDE RECORDS SUMMARY | 2024-09-04 16:17 | XMS_ITS | Encounter Summary ---
Author Organization [facility] Address [address] [place] [address] Phone Care Team Providers Care Paving Foreman Name Role Phone Vasquez Ashley MD Primary Care Provider [phone] Clarice Fleming MD Unavailable Ramses Rosa MD Unavailable [phone] Mary Verdugo NP Unavailable + Reason for Visit * Reason Onset Date Comments PROVIDER & SCHEDULE UPDATE 12/07/2018 Encounter Details Date Type Department Care Team (Late st Contact Info) Description 12/07/2018 Telephone [facility] Oncology [address] [facility] [address] [place] [phone] Raisa Craven [facility] PROVIDER & SCHEDULE UPDATE Social History Tobacco Use Types Packs/Day Years Used Date Smoking Tobacco: Never Smokeless Tobacco: Never Alcohol Use Standard Drinks/Week Comments No 0 (1 standard drink = 0.6 oz pur e alcohol) Comments No Sex and Gender Information Value Date Recorded Sex Assigned at Not on file Legal Sex Female 9:12 AM ADMISSIONS COUNSELOR Gender Identity Not on file Sexual Orientation [...] the likelihood of falling Lifestyle Chelsi Boyer, RN Note: Below are four things you [...] on stairs Contact your local community or [facility] for information on exercise, fall prevention programs, or options for improving home safety. documented as of this encounter Visit Diagnoses Not on filedocumented in this encounter Additional Health Concerns Infection Onset Date Last Indicated Resolved Time COVID: Suspected 11/24/2022 11/25/2022 11/25/2022 3:28 AM CDT documented as of this encounter Care Teams Paving Foreman Relationship Specialty Start Date End Date Vasquez Ashley MD [address] [facility] [address] [place], [place] [phone] PCP - General 11/05/16 [place] [address] [facility] [address] [place] [address] Rheumatology 03/25/17 Ramses Rosa MD [address] [facility] [address] [place] [address] Medical Oncology 03/25/17 09/02/20 [place] [address] [facility] [address] [place] [address] Nurse Practitioner Rheumatology 01/27/22 documented as of this encounter
== END 2024-09-04 16:10 | disposition home or self-care (01) ==
PROVIDERS: PCP Internal Medicine; Visit Provider Neurological Surgery
DX: M47.22 Other spondylosis with radiculopathy, cervical region (principal)
CPT/HCPCS: 72050

== ENCOUNTER 2024-10-05 08:24 | Outpatient (CLI) | payer MEDICARE, SELFPAY ==
[2024-10-05 09:00] LABS: Basophils Percent Auto 0.4 % (0.2-1.2); Eosinophils Absolute Auto 0.3 K/mm3 (0-0.3); Eosinophils Percent Auto 6.2 % (0-4.4); Hematocrit 38.5 % (37.0-47.0); Hemoglobin 12.8 g/dL (12.0-15.0); Immature Granulocyte Absolute 0.01 K/mm3 (0.00-0.031); Immature Granulocyte Percent A 0.2 % (0-0.5); Lymphocytes Absolute Auto 1.64 K/mm3 (0.9-3.2); Lymphocytes Percent Auto 30.8 % (18.3-44.2); Mean Corpuscular HGB Conc 33.2 g/dl (32-36); Mean Corpuscular Hemoglobin 29.3 pg (26-34); Mean Corpuscular Volume 88.1 fl (80-100); Mean Platelet Volume 10.2 fl (7.4-10.4); Monocytes Absolute Auto 0.6 K/mm3 (0.1-0.6); Monocytes Percent Auto 10.3 % (2.6-8.5); Neutrophils Absolute Auto 2.8 K/mm3 (1.3-6.7); Neutrophils Percent Auto 52.1 % (45.5-73.1); Platelet Count Result 227 k/mm3 (150-375); Red Blood Count 4.37 M/mm3 (4.2-5.4); Red Cell Distribution Width 12.2 % (11.5-14.5); White Blood Count 5.3 K/mm3 (4.5-10.0)
[2024-10-05 09:16] LABS: Cholesterol 134 mg/dL (0-200); HDL Direct 45 mg/dL; Triglycerides 150 mg/dL (<150)
[2024-10-05 09:19] LABS: Alanine Aminotransferase 54 U/L (6-35); Alkaline Phosphatase 98 U/L (38-126); Anion Gap 9 mmol/L (4-12); Aspartate Amino Transferase 38 U/L (14-36); Bilirubin,Total 0.4 mg/dL (0.2-1.3); Blood Urea Nitrogen 20 mg/dL (7-17); Calcium 9.5 mg/dL (8.4-10.2); Carbon Dioxide 30 mmol/L (22-30); Chloride 101 mmol/L (98-107); Estimated Glomerular Filt Rate > 60; Glucose 114 mg/dL (65-110); Potassium 4.3 mmol/L (3.4-5.0); Sodium 140 mmol/L (137-145)
[2024-10-05 09:25] LABS: CRP < 0.5 mg/dL (<1.0)
[2024-10-05 09:27] LABS: LDL Cholesterol Direct 60 mg/dL
[2024-10-05 09:36] LABS: Hemoglobin A1C 6.1 % (<5.7)
[2024-10-05 09:51] LABS: Erythrocyte Sedimentation Rate 87 mm/hr (0-20)
[2024-10-05 12:32] LABS: Iron 93 ug/dL (37-170)
[2024-10-05 12:42] LABS: Percent Iron Saturation 21 % (20-50)
[2024-10-09 12:53] LABS: Vitamin B6 24.6 ng/mL (2.1-21.7)
[2024-10-10 03:39] LABS: Vitamin B1 21 nmol/L (8-30)
== END 2024-10-05 08:25 | disposition home or self-care (01) ==
LOC: ANHLAB 08:35
PROVIDERS: PCP Internal Medicine; Referring Provider Nurse Practitioner; Visit Provider Psychiatry & Neurology Neurology
DX: M06.09 Rheumatoid arthritis without rheumatoid factor, multiple sites (principal); E03.9 Hypothyroidism, unspecified; R73.9 Hyperglycemia, unspecified; I10 Essential (primary) hypertension; K75.81 Nonalcoholic steatohepatitis (NASH); I65.02 Occlusion and stenosis of left vertebral artery; I67.9 Cerebrovascular disease, unspecified; G25.81 Restless legs syndrome; G62.9 Polyneuropathy, unspecified; G43.909 Migraine, unspecified, not intractable, without status migrainosus; M54.12 Radiculopathy, cervical region; Z79.899 Other long term (current) drug therapy
CPT/HCPCS: 36415; 80053; 80061; 83036; 83540; 83550; 84207; 84425; 84443; 85025; 85652; 86140

== ENCOUNTER 2024-10-18 12:55 | Emergency (ER) | payer MEDICARE, SELFPAY ==
--- NOTE | 2024-10-18 13:07 | ED.URI ---
HPI - URI/Sore Throat General Chief Complaint: Upper Respiratory Infection Stated Complaint: Sinus Time Seen by Provider: 10/18/24 13:20 Source: patient Mode of arrival: ambulatory Limitations: no limitations History of Present Illness HPI Narrative: Norma is a 74-year-old female patient presenting to the clinic today with complaints headache and body aches. She reports the headache is been going off and on for 6 days but she has had persistent body aches. Denies any URI symptoms, UTI symptoms, nausea, vomiting, diarrhea, or any other concerns at this time. No known fever. MD elicited complaint: sore throat and nasal congestion Related Data Home Medications ?Medication ?Instructions ?Recorded ?Confirmed ?Last Taken ?Type hydroxychloroquine 200 mg tablet 200 mg PO BID 09/18/19 10/05/24 Unknown History methenamine hippurate 1 gram tablet 1 g PO BID 09/05/24 10/05/24 Unknown History Allergies Allergy/AdvReac Type Severity Reaction Status Date / Time aspirin Allergy Intermediate Swelling Verified 10/18/24 13:17 ibuprofen Allergy Intermediate MOUTH Verified 10/18/24 13:17 SWELLING Iodinated Contrast Media Allergy Mild unknown Verified 10/18/24 13:17 oxaprozin Allergy Mild MOUTH Verified 10/18/24 13:17 SWELLING Penicillins Allergy Itching Verified 10/18/24 13:17 levofloxacin AdvReac Intermediate Numbness Verified 10/18/24 13:17 hydrocodone AdvReac Mild itching Verified 10/18/24 13:17 meperidine AdvReac Mild Itching Verified 10/18/24 13:17 ramipril AdvReac Mild heart Verified 10/18/24 13:17 racing Cephalosporins AdvReac Itching Verified 10/18/24 13:17 Review of Systems Review of Systems: Pertinent positives per HPI. Patient denies any fever, chills, rash, headache, visual changes, dizziness, cough, shortness of breath, chest pain, palpitations, nausea, vomiting, diarrhea, constipation, abdominal pain, or any urinary issues. [facility] Past Medical History Medical History Rash and other nonspecific skin eruption Pain in right thigh Other malaise Low back pain radiating down leg Lichen sclerosus Essential (primary) hypertension Dietary counseling and surveillance (12/20/16) Cough Asthma exacerbation Pure hypercholesterolemia Stenosis of left vertebral artery Primary osteoarthritis of right knee Primary osteoarthritis of left hip LEWIS (nonalcoholic steatohepatitis) Rheumatoid arthritis Hypertension History of trigger finger thumb - surgery History of tennis elbow Breast cancer RT breast received radiation Hyperglycemia Other dorsalgia Unspecified asthma, uncomplicated Unspecified cirrhosis of liver Lymph edema Plantar fasciitis Surgical History Surgical History History of radiofrequency ablation (RFA) of nerve of cervical spine H/O foot surgery History of carpal tunnel surgery History of back surgery History of appendectomy History of cholecystectomy History of hernia repair History of bladder repair surgery History of hysterectomy History of lumpectomy of right breast Hx of laminectomy Family History Family History Father Diabetes mellitus Mother Hypertension Cancer of kidney Sibling Diabetes mellitus Asthma Grandparent Diabetes mellitus Social History Social History Smoking status: Never smoker Tobacco type: cigarettes Second hand tobacco smoke exposure: Yes Alcohol intake: former Substance use: never Substance use type: does not use Do You Feel Safe in your Home?: Yes Lack of Transportation: No Lack of Food: Never True Current Housing: I Have Housing Concerned About Future Housing: No Difficulty Paying Gas/Electric Bills: No Difficulty Paying for Meds: No Currently Unemployed: No Education: High School Diploma/GED Difficulty w/ Childcare or Family Care: No Living arrangements: with family Additional living arrangements comments: [facility] Occupation/Education: retired 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 There is no relevant family history pertinent to the patient complaint. Exam Narrative: General: Well-developed, obese, in no apparent distress Head: Normocephalic, atraumatic Eyes: Pupils equally round and reactive to light bilaterally, EOM intact, sclera and conjunctive clear, no discharge, lids normal Ears: TMs intact and clear, ear canals clear, no drainage, grossly hearing normal. Nose: Nares patent, no discharge, no inflammation, no sinus tenderness. Mouth: Oral pharynx without lesions or masses, good dentition, MMM. Neck: Supple, trachea midline, no enlargement of anterior or posterior cervical nodes, no thyroid masses or goiter palpable. Cardio: Regular rate and rhythm, s1 and s2 normal, no murmur appreciated. Resp: Clear to auscultation bilaterally, no rhonchi, rales, wheezing or rubs Course Course Emergency Course: Portions of this record may have been created with voice recognition software. Level of Care: Express Care Visit Vital Signs Vital signs: Vital Signs Temperature 37.3 C 10/18/24 13:17 Pulse Rate 111 H 10/18/24 13:17 Respiratory Rate 20 10/18/24 13:17 Blood Pressure 139/63 10/18/24 13:17 Pulse Oximetry 96 10/18/24 13:17 Oxygen Delivery Room Air 10/18/24 13:17 Temperature 37.3 C 10/18/24 13:17 Pulse Rate 111 H 10/18/24 13:17 Respiratory Rate 20 10/18/24 13:17 Blood Pressure 139/63 10/18/24 13:17 Pulse Oximetry 96 10/18/24 13:17 Oxygen Delivery Room Air 10/18/24 13:17 Vital signs reviewed MDM - URI/Sore Throat MDM Narrative Medical decision making narrative: At the time of visit patient is resting comfortably on the exam table. Patient appears to be nontoxic. Labs: COVID and influenza testing was negative in the clinic today. Plan: Patient has history of rheumatoid arthritis and also states that she had been worked up for fibromyalgia but did not have a direct answer. Will trial a Medrol Dosepak to see if this helps alleviate patient's symptoms. Supportive measures were discussed with the patient and they voiced understanding discharge instructions and agrees to treatment plan. Return precautions reviewed Differential Diagnosis Differential diagnosis: Likely sinusitis, viral infection, influenza and pharyngitis Lab Data Labs: Lab Results 10/18/24 Range/Units 13:33 POC Influenza A Ag Negative (Negative) POC Influenza B Ag Negative (Negative) POC SARS CoV-2 Ag Negative (Negative) Discharge Plan Discharge Clinical Impression: Generalized body aches Headache Qualifiers: Headache type: unspecified Headache chronicity pattern: acute headache Intractability: not intractable Qualified Code(s): R51.9 - Headache, unspecified Patient Disposition: Home, Self-Care Condition: Stable Instructions: Antibiotic Form, Acute Headache (ED) Additional Instructions: COVID and influenza testing was negative in the clinic today. Take Medrol Dosepak as prescribed Increase fluids and stay well hydrated Tylenol for pain/fever Flonase and OTC antihistamines as directed Vicks vapor rub to open sinuses Sinus rinses for congestion Cepacol spray, cough drops, throat lozenges, warm tea with honey/lemon, gargle salt water to soothe throat BRAT diet for diarrhea Clear liquids x 24 hours then advance as tolerated for nausea/vomiting Go to the ED if you develop a worsening in your condition- high fever not controlled by Tylenol or Motrin, dehydration, weakness, lethargy, shortness of breath, or chest pain. Follow up with your PCP in 3-5 days if symptoms persist. Patient Language: Belgian Prescriptions: New methylprednisolone [Medrol (Gary)] 4 mg tablets,dose pack See Rx Instructions PO .COMPLEX Qty: 21 0RF Rx Instructions: orally per package directions No Action hydroxychloroquine 200 mg tablet 200 mg PO BID fluticasone propion-salmeterol [Advair Diskus] 250-50 mcg/dose blister with device 1 inh INHALATION BID PRN (Reason: Shortness Of Breath Or Wheezing) Qty: 60 5RF cyclobenzaprine 5 mg tablet 5 mg PO QHS PRN (Reason: muscle spasm) Qty: 20 0RF duloxetine 30 mg capsule,delayed release(DR/EC) See Rx Instructions .ROUTE .COMPLEX Qty: 90 3RF Dose Instruction: TAKE 1 CAPSULE BY MOUTH DAILY Patient Comments: QAM Rx Instructions: TAKE 1 CAPSULE BY MOUTH DAILY gabapentin 300 mg capsule 600 mg PO HS Qty: 180 1RF methenamine hippurate 1 gram tablet 1 g PO BID tramadol 50 mg tablet 50 mg PO Q12H PRN (Reason: Pain) Qty: 30 0RF levothyroxine 50 mcg tablet 50 mcg PO DAILY Qty: 90 3RF Patient Comments: QAM hydrochlorothiazide 50 mg tablet 50 mg PO DAILY Qty: 90 3RF Patient Comments: QAM potassium chloride [Klor-Con 10] 10 mEq tablet extended release 10 meq PO DAILY Qty: 90 3RF gemfibrozil [Lopid] 600 mg tablet 600 mg PO BID Qty: 180 3RF pantoprazole 40 mg tablet,delayed release (DR/EC) 40 mg PO BID Qty: 180 3RF lisinopril 5 mg tablet 5 mg PO DAILY Qty: 90 3RF Patient Comments: QAM metoprolol tartrate 25 mg tablet 25 mg PO BID Qty: 90 3RF albuterol sulfate 90 mcg/actuation HFA aerosol inhaler 2 puff INHALATION Q4-6H PRN (Reason: Shortness Of Breath) Qty: 18 6RF montelukast [Singulair] 10 mg tablet 10 mg PO DAILY Qty: 90 3RF Follow-up/Referrals: Hamlet Hale DO [Primary Care Provider] - Time of Disposition: 13:31 Quality NIHSS Nursing Documentation ED NIHSS nursing documentation: reviewed/agree
[2024-10-18 13:17] VITALS: BP 139/63; PULSE 111; RESP 20; TEMP 37.3; O2SAT 96
[2024-10-18 13:35] LABS: EDCOVIDSCREEN Negative (Negative); EDINFLUASCREEN Negative (Negative); EDINFLUBSCREEN Negative (Negative)
== END 2024-10-18 13:46 | disposition home or self-care (01) ==
PROVIDERS: Emergency Provider Nurse Practitioner Family; PCP Internal Medicine
DX: R52 Pain, unspecified (principal); R51.9 Headache, unspecified; Z20.822 Contact with and (suspected) exposure to COVID-19; I10 Essential (primary) hypertension; E78.00 Pure hypercholesterolemia, unspecified; K75.81 Nonalcoholic steatohepatitis (NASH); M06.9 Rheumatoid arthritis, unspecified; K74.60 Unspecified cirrhosis of liver; M17.11 Unilateral primary osteoarthritis, right knee; M16.12 Unilateral primary osteoarthritis, left hip; L90.0 Lichen sclerosus et atrophicus; J45.909 Unspecified asthma, uncomplicated; Z85.3 Personal history of malignant neoplasm of breast; Z90.11 Acquired absence of right breast and nipple; Z92.3 Personal history of irradiation
CPT/HCPCS: 87426; 87804; 99213; G0463

== ENCOUNTER 2024-10-22 10:37 | Outpatient (CLI) | payer MEDICARE, SELFPAY ==
[2024-10-22 12:45] LABS: Erythrocyte Sedimentation Rate 60 mm/hr (0-20)
--- OUTSIDE RECORDS SUMMARY | 2024-10-22 12:58 | XMS_ITS | Encounter Summary ---
Author Organization [facility] Healthcare Address [address] [place] [address] Care Team Providers Care Health Inspector Food Name Role Phone Vasquez Ashley MD Primary Care Provider [phone] Clarice Fleming MD Unavailable Ramses Rosa MD Unavailable [phone] Mary Verdugo NP Unavailable + Hamlet Hale DO Primary Care Provider [phone] Encounter Details Date Type Department Care Team (Late st Contact Info) Description 04/24/2019 Telephone [facility] [address] [facility] [address] [place], [place] [id number] Amanda Brady MD [address] [facility] [address] [place] [address] Social History Tobacco Use Types Packs/Day Years Used Date Smoking Tobacco: Never Smokeless Tobacco: Never Alcohol Use Standard Drinks/Week Comments No 0 (1 standard drink = 0.6 oz pur e alcohol) Comments No Sex and Gender Information Value Date Recorded Sex Assigned at Not on file 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 Make your home safer by: Removing clutter & tripping hazards Putting railings on all stairs & adding grab bars in the bathroom Having good lighting, especially on stairs Contact your local community or [facility] for information on exercise, fall prevention programs, or options for improving home safety. documented as of this encounter Visit Diagnoses Not on filedocumented in this encounter Additional Health Concerns Infection Onset Date Last Indicated Resolved Time COVID: Suspected 11/24/2022 11/25/2022 11/25/2022 3:28 AM CDT documented as of this encounter Care Teams Health Inspector Food Relationship Specialty Start Date End Date Vasquez Ashley MD [address] [place] [address] PCP - General 11/05/16 09/30/24 Hamlet Hale DO [address] [place] [address] PCP - General Internal Medicine 10/01/24 [place] [address] [facility] [address] [place] [address] Rheumatology 03/25/17 Ramses Rosa MD [address] [place] [address] [address] [place] [address] Medical Oncology 03/25/17 09/02/20 [place] [address] [address] [place] [address] Nurse Practitioner Rheumatology 01/27/22 documented as of this encounter
--- OUTSIDE RECORDS SUMMARY | 2024-10-22 12:58 | XMS_ITS | Patient Health Summary ---
Author Organization [facility] Address [address] [facility] [place] [address] Care Team Providers Care Client Service Professional Name Role Phone Vasquez Ashley Primary Care Provider [phone] Thong [place] MD Unavailable [phone] Clarice Fleming MD Unavailable Note from [facility],non-owned Affiliates and Associated Physician Practices is amultiple site organization consisting of ambulatory clinics and hospital sitesin [place] and [place]. This disclosure is being madepursuant to the Care Everywhere program and may not contain all information available regarding this patient. Last updated 18.[facility] Allergies * Adhesive Sensitivity(Itching) -Medium Criticality * [...] 3 times daily 3 refills by 08/06/2025 Active Problems Problem Noted Date Diagnosed Date [...] Comments Blood Pressure 120/62 08/06/2024 2:28 PM PRESSURE VESSEL INSPECTOR Pulse 71 08/31/2017 11:55 AM PRESSURE VESSEL INSPECTOR Temperature 36.6 C (97.9 F) 08/31/2017 12:07 PM PRESSURE VESSEL INSPECTOR Respiratory Rate 12 08/31/2017 11:55 AM PRESSURE VESSEL INSPECTOR Oxygen Saturation 98% 08/31/2017 12:33 PM PRESSURE VESSEL INSPECTOR Inhaled Oxygen Concentration - - Weight 90.7 kg (200 lb) 08/06/2024 2:28 PM PRESSURE VESSEL INSPECTOR Height 157.5 cm (5' 2 ) 08/06/2024 2:28 PM PRESSURE VESSEL INSPECTOR Body Mass Index 36.58 08/06/2024 2:28 PM PRESSURE VESSEL INSPECTOR Medical Devices Implanted Type Area Flaring Machine Operator Device Identifier Shelf Expiration Date Model / Serial / Lot Syr Inj Coaptite 1cc Implanted:Qty: 1 on 11/22/2012 by Thong [place] MD at [facility] [employer]im[employer] 07/07/2015 [id number] / / [id number] Syr Inj Coaptite 1cc Implanted:Qty: 1 on 11/22/2012 by Thong [place] MD at [facility] Inf[employer] Z Scimed 04/06/2015 [id number] / / [id number] Procedures * URINALYSIS AUTO - POINT OF [...] - POINT OF CARE (08/06/2024 2:34 PM PRESSURE VESSEL INSPECTOR) Only the most recent of14 resultswithin the [...] trace Negative [facility] Specific [place] UA POCT 1.020 1.002 - 1.030 [facility] Ketone UA neg Negative [facility] Bilirubin UA POCT neg Negative [facility] Glucose UA neg Negative [facility] Urine URINE / Unknown 08/06/2024 2 :34 PM PRESSURE VESSEL INSPECTOR Thong [place] MD LAB - POINT OF CARE ORDERABLES [facility] [address] , [address] [phone] * (ABNORMAL) CULTURE URINE (08/06/2024 2:33 PM PRESSURE VESSEL INSPECTOR) Only the most recent of22 resultswithin the time period is included. Urine Culture Routine Final report(A) [facility] INSURANCE BILL Comment: Performed at: [address] [id number] Electric Motor Winder: Fortino Goldstein PhD, Phone: [phone] Result 1 Escherichia coli(A) [facility] INSURANCE BILL Comment: Cefazolin <=4 ug/mL Cefazolin with an NOLAN <=16 predicts susceptibility to the oral agents cefaclor, cefdinir, cefpodoxime, cefprozil, cefuroxime, cephalexin, and loracarbef when used for therapy of uncomplicated urinary tract infections due to E. coli, Klebsiella pneumoniae, and Proteus mirabilis. Multi-Drug Resistant Organism Greater than 100,000 colony forming units per mL Antimicrobial Susceptibility Comment [facility] INSURANCE BILL Comment: S = Susceptible; I = Intermediate; R = Resistant P = Positive; N = Negative MICS are expressed in micrograms per mL Antibiotic RSLT#1 RSLT#2 RSLT#3 RSLT#4 Amoxicillin/Clavulanic Acid S Ampicillin R Cefepime S Ceftriaxone S Cefuroxime S Ciprofloxacin R Ertapenem S Gentamicin R Imipenem S Levofloxacin R Meropenem S Nitrofurantoin S Piperacillin/Tazobactam S Tetracycline S Tobramycin I Trimethoprim/Sulfa R Urine URINE SPECIMEN OBTAINED BY CLEAN CATCH PROCEDURE / Unknown 08/06/2024 2:33 PM PRESSURE VESSEL INSPECTOR 08/06/2024 Comment:Urine - clean catch R Narrative [facility] INSURANCE BILL - 08/09/2024 5:07 PM PRESSURE VESSEL INSPECTOR Performed at: [address] [place] [id number] [place], [place] [id number] Electric Motor Winder: Fortino Goldstein PhD, Phone: [phone] Thong [place] MD LAB - MICROBIOLOGY O RDERABLES [facility] INSURANCE BILL [address] [place] [address] * MAMMOGRAM (11/03/2022) Anatomical Region Laterality Modality [...] Resulting Agency Comment Lab Testing performed at: [facility] [address] [id number] Thong [place] MD LAB - URINALYSIS ORD ERABLES [facility] INSURANCE BILL [address] [place] [address] * (ABNORMAL) URINALYSIS W/MICROSCOPIC NO CULTURE (06/01/2022 8:21 AM CDT) Pathologist [facility] Specific [place] UA 1.018 1.005 - 1.030 [facility] INSURANCE [...] Resulting Agency Comment Lab Testing performed at: [facility] [place] [address] [place] [id number] Thong [place] MD LAB - URINALYSIS ORD ERABLES [facility] INSURANCE BILL [address] [place] [address] * LAB RESULTS ORDER (08/13/2020) Only the most recent of2 resultswithin the time period is included. Provider Unknown LAB - THERAPEUTIC DR GOYAL MONITORING ORDERABLES * CARDIAC RHYTHM STRIP ORDER (09/01/2017 10:34 PM PRESSURE VESSEL INSPECTOR) Only the most recent of2 resultswithin the time period is included. Narrative 09/01/2017 10:34 PM PRESSURE VESSEL INSPECTOR Ordered by an unspecified provider. Scanned Document CARDIAC SERVICES ORD ERABLES * MAMMO SCREENING BILATERAL (08/05/2017) Anatomical Region Laterality Modality Breast Mammography Thong [place] MD MAMMO ORDERABLES * STATE LAB REPORT RFLXED (07/21/2017 11:45 AM PRESSURE VESSEL INSPECTOR) [facility] Lab Report [facility] INSURANCE BILL Comment: Final report received from public [facility]. SALMONELLA AGBENI 07/21/2017 11:4 5 AM PRESSURE VESSEL INSPECTOR 07/21/2017 Narrative Resulting Agency Comment [facility] [address] [facility] [id number] Thong [place] MD LAB - MICROBIOLOGY O RDERABLES [facility] INSURANCE BILL [address] [place] [address] * MAMMOGRAPHY ORDER (08/04/2016) Anatomical Region Laterality Modality Mammography Thong [place] MD MAMMO ORDERABLES * MRI SPINE THORACIC NON CONTRAST (06/27/2009 4:55 PM PRESSURE VESSEL INSPECTOR) Anatomical Region Laterality Modality Chest Magnetic Resonan ce 06/27/2009 8:39 PM PRESSURE VESSEL INSPECTOR Impressions 06/27/2009 8:43 PM PRESSURE VESSEL INSPECTOR Unremarkable MRI examination of the thoracic spine. Narrative 06/27/2009 8:43 PM PRESSURE VESSEL INSPECTOR MRI THORACIC SPINE WITHOUT CONTRAST from 06/27/2009 [...] sac. The spinal cord itself appears normal. Procedure Note [...] SPINE LUMBAR NON CONTRAST (06/27/2009 4:55 PM PRESSURE VESSEL INSPECTOR) Anatomical Region Laterality Modality Spine Magnetic Resonan ce 06/30/2009 9:50 AM PRESSURE VESSEL INSPECTOR Impressions 06/30/2009 1:18 PM PRESSURE VESSEL INSPECTOR 1. Discogenic and facet degenerative changes are present throughout the lumbar spine as described above but do not result in significant central canal stenosis at any level. 2. Facet arthropathy results in mild bilateral lateral recess stenosis from L2-L3 through L4-L5. Neuroforaminal stenosis is present bilaterally at L4-L5 and L5-S1. Narrative 06/30/2009 1:18 PM PRESSURE VESSEL INSPECTOR EXAM: MRI LUMBAR SPINE WITHOUT CONTRAST INDICATION: [...] not result in significant stenosis. Procedure Note Gin Kala J - 06/30/2009 EXAM: MRI LUMBAR SPINE WITHOUT [...] Patricio Gomez MD MR ORDERABLES Care Teams Client Service Professional Relationship Specialty Start Date End Date Vasquez Ashley DO [address] [facility] [address] [facility] 21 [place] [address] PCP - General Internal Medicine 11/17/12 Thong [place] MD [address] [place] [address] Client Service Administrator Obstetrics and Gynecology 07/16/16 Clarice [place] MD [address] [place] [address] Nuclear Technologist Rheumatology 07/21/17
--- OUTSIDE RECORDS SUMMARY | 2024-10-22 12:58 | XMS_ITS | Clinical Summary ---
Author Organization [facility] Address [address] [place] [address] Care Team Providers Care Disbursing Officer Name Role Phone Unavailable Primary Care Provider [...] of 1 - PCV) 12/31/2016 COVID-19 Vaccine (2023-2 5 season) 2024 Influenza Adult (#1) 2024 [...]
--- OUTSIDE RECORDS SUMMARY | 2024-10-22 12:58 | XMS_ITS | Encounter Summary ---
Author Organization [facility] Healthcare Address [address] [place] [address] Care Team Providers Care Confectionery Maker Name Role Phone Vasquez Ashley MD Primary Care Provider [phone] Clarice [place] MD Unavailable Ramses Rosa MD Unavailable [phone] Mary Verdugo NP Unavailable + Ham[place] DO Primary Care Provider [phone] Encounter Details Date Type Department Care Team (Late st Contact Info) Description 01/12/2019 Telephone [facility] [address] [facility] [address] [place], [place] [id number] Amanda [place] MD [address] [facility] [address] [place] [address] Social History Tobacco Use Types Packs/Day Years Used Date Smoking Tobacco: Never Smokeless Tobacco: Never Alcohol Use Standard Drinks/Week Comments No 0 (1 standard drink = 0.6 oz pur e alcohol) Comments No Sex and Gender Information Value Date Recorded Sex Assigned at Not on file Legal Sex Female 9:12 AM KNOT BUMPER Gender Identity Not on file Sexual Orientation [...] on stairs Contact your local community or [facility] for information on exercise, fall prevention programs, or options for improving home safety. documented as of this encounter Visit Diagnoses Not on filedocumented in this encounter Additional Health Concerns Infection Onset Date Last Indicated Resolved Time COVID: Suspected 11/24/2022 11/25/2022 11/25/2022 3:28 AM CDT documented as of this encounter Care Teams Confectionery Maker Relationship Specialty Start Date End Date Vasquez Ashley MD [address] [facility] [address] [place] [address] PCP - General 11/05/16 09/30/24 Hamlet [place] DO [address] [facility] 21 [place] [address] PCP - General Internal Medicine 10/01/24 [place] [address] [facility] [address] [place] [address] Rheumatology 03/25/17 Ramses Rosa MD [address] [facility] [address] [place] [address] Medical Oncology 03/25/17 09/02/20 [place] [address] [address] Nurse Practitioner Rheumatology 01/27/22 documented as of this encounter
--- OUTSIDE RECORDS SUMMARY | 2024-10-22 12:58 | XMS_ITS | Encounter Summary ---
Author Organization [facility] Healthcare Address [address] [place] [address] Care Team Providers Care Senior Support Analyst Name Role Phone Vasquez Ashley MD Primary Care Provider [phone] Clarice Fleming MD Unavailable Ramses Rosa MD Unavailable [phone] Mary Verdugo NP Unavailable + Hamlet Hale DO Primary Care Provider [phone] Encounter Details Date Type Department Care Team (Late st Contact Info) Description 11/03/2018 Telephone [facility] at [facility] [address] [facility] [address] [place], [place] [id number] Amanda Brady MD [address] [facility] [address] [place] [address] Social History Tobacco Use Types Packs/Day Years Used Date Smoking Tobacco: Never Smokeless Tobacco: Never Alcohol Use Standard Drinks/Week Comments No 0 (1 standard drink = 0.6 oz pur e alcohol) Comments No Sex and Gender Information Value Date Recorded Sex Assigned at Not on file Legal Sex Female 9:12 AM RESCUE BOAT OPERATOR Gender Identity Not on file Sexual Orientation [...] on stairs Contact your local community or [facility] for information on exercise, fall prevention programs, or options for improving home safety. documented as of this encounter Visit Diagnoses Not on filedocumented in this encounter Additional Health Concerns Infection Onset Date Last Indicated Resolved Time COVID: Suspected 11/24/2022 11/25/2022 11/25/2022 3:28 AM CDT documented as of this encounter Care Teams Senior Support Analyst Relationship Specialty Start Date End Date Vasquez Ashley MD [address] [facility] [address] [place] [address] PCP - General 11/05/16 09/30/24 Hamlet Hale DO [address] [facility] [address] [place] [address] PCP - General Internal Medicine 10/01/24 [place] [address] [facility] [address] [place] [address] Rheumatology 03/25/17 Ramses Rosa MD [address] [facility] [address] [place] [address] Medical Oncology 03/25/17 09/02/20 [place] [address] [address] Nurse Practitioner Rheumatology 01/27/22 documented as of this encounter
--- OUTSIDE RECORDS SUMMARY | 2024-10-22 12:58 | XMS_ITS | Encounter Summary ---
Author Organization [facility] Address [address] [place] [address] Phone Care Team Providers Care Corrections Counselor Name Role Phone Vasquez Ashley MD Primary Care Provider [phone] Clarice Fleming MD Unavailable Ramses Rosa MD Unavailable Mary Verdugo NP Unavailable + Hamlet Hale DO Primary Care Provider [phone] Reason for Visit * Reason Onset Date Comments PROVIDER & SCHEDULE UPDATE 12/07/2018 Encounter Details Date Type Department Care Team (Late st Contact Info) Description 12/07/2018 Telephone [facility] [address] [facility] [address] [place] [address] Raisa Craven RMA PROVIDER & SCHEDULE UPDATE Social History Tobacco Use Types Packs/Day Years Used Date Smoking Tobacco: Never Smokeless Tobacco: Never Alcohol Use Standard Drinks/Week Comments No 0 (1 standard drink = 0.6 oz pur e alcohol) Comments No Sex and Gender Information Value Date Recorded Sex Assigned at Not on file Legal Sex Female 9:12 AM GUIDANCE SERVICES COORDINATOR Gender Identity Not on file Sexual [...] on stairs Contact your local community or [facility] for information on exercise, fall prevention programs, or options for improving home safety. documented as of this encounter Visit Diagnoses Not on filedocumented in this encounter Additional Health Concerns Infection Onset Date Last Indicated Resolved Time COVID: Suspected 11/24/2022 11/25/2022 11/25/2022 3:28 AM CDT documented as of this encounter Care Teams Corrections Counselor Relationship Specialty Start Date End Date Vasquez Ashley MD [address] [facility] [address] [place] [address] PCP - General 11/05/16 09/30/24 Hamlet Hale DO [address] [facility] 21 [place] [address] PCP - General Internal Medicine 10/01/24 [place] [address] [facility] 70 [place] [address] Rheumatology 03/25/17 Ramses Rosa MD [address] [facility] [address] [place] [address] Medical Oncology 03/25/17 09/02/20 [place] [address] [address] Nurse Practitioner Rheumatology 01/27/22 documented as of this encounter
--- OUTSIDE RECORDS SUMMARY | 2024-10-22 12:58 | XMS_ITS | Clinical Summary ---
Author Organization [facility] [address] [place] [address] Address [address] [place] [address] Care Team Providers Care Slot Machine Key Person Name Role Phone Vasquez Ashley DO Primary Care Provider [phone] Allergies Active Allergy Reactions Criticality Noted Date [...] 6 Tablets 40 Tablet 07/13/2019 11:28 AM TREE THINNER 9 Active diphenhydrAMINE (BENADRYL) 25 mg capsule [...] Encounters Date Type Department Care Team Description 10/13/2024 External Device Data [facility]CTION Provider, Abstract 10/12/2024 External Device Data [facility] Provider, Abstract 10/09/2024 External Device Data [facility] Provider, Abstract 09/26/2024 External Device Data [facility] Provider, Abstract 08/30/2024 External Device Data [facility] ABSTRACTION Provider, [...] 68 03/28/2024 1:00 PM CDT Temperature 37.3 C (99.2 F) 07/13/2019 7:51 AM TREE THINNER Respiratory Rate 14 07/13/2019 7:51 AM TREE THINNER Oxygen Saturation 98% 03/28/2024 1:00 PM CDT Inhaled Oxygen Concentration - - Weight 90.3 kg (199 lb) 03/28/2024 1:00 PM CDT Height 157.5 cm (5' 2 ) 03/28/2024 1:00 PM CDT Body Mass Index 36.4 03/28/2024 1:00 PM CDT Plan of Treatment Upcoming Encounters Date Type Department Care Team (Late st Contact Info) Description 11/19/2024 10:00 AM CDT Office Visit [facility]3] Heart [facility] [address] [address] [place] [address] Marcelino Oconnell MD [address] [place] [address] Health Maintenance Due Date Last Done Comments DTAP/TDAP/TD VACCINES (1 - Tdap) 12/31/1970 PNEUMOCOCCAL VACCINE 50+ YEA RS (1 of 2 - PCV) [...] history exists COLORECTAL SCREENING 05/12/2031 05/12/2021, 05/12/20 Colorectal Cancer Screening 05/12/2031 OSTEOPOROSIS SCREENING Completed 2, 11/12/2021, 08/05/2017 Medical Devices Implanted Type Area Literacy Coach Device Identifier Shelf Expiration Date Model / Serial / Lot Hemostatic Surgiflo 8ml W/Thrombin [id number] - [id number] Implanted:Qty: 1 on 07/12/2019 by Joe Dewitt MD at [facility] Right: Spine Lumbar [employer] 06/07/2020 [id number] / / [id number] Insurance MEDICARE PART A AND B [facility] Medicare Part D BCBS SUPP Advance Directives For more information, please contact: [phone] * Full Code (Latest Code Status on File) Date Activated Date Inactivated Comments 07/12/2019 3:08 PM 07/13/2019 3:12 PM Care Teams Slot Machine Key Person Relationship Specialty Start Date End Date Vasquez Ashley DO [address] [facility] 120 [place] [id number] PCP - General Internal Medicine 03/15/19
--- OUTSIDE RECORDS SUMMARY | 2024-10-22 12:59 | XMS_ITS | Clinical Summary ---
Author Organization [facility] Address [address] [place] [address] Care Team Providers Care Occasional Caregiver Name Role Phone Vasquez Ashley Primary Care Provider Thong Grant MD Unavailable [phone] Clarice Fleming MD Unavailable Source Comments [facility],non-owned Affiliates and Associated Physician Practices is amultiple site organization consisting of ambulatory clinics and hospital sitesin [place], [place], [place] and [place]. This disclosure is being madepursuant to the Care Everywhere program and may not contain all information available regarding this patient. Last updated 18.[facility] Allergies Active Allergy Reactions Criticality Noted Date Comments Adhesive Sensitivity Itching Medium 03/28/2019 Aspirin Itching High 07/17/2014 Other reaction(s): GI Bleeding (moderate to severe) Reaction: itching, , Cefuroxime 11/21/2012 Chest tightenss Cephalosporins Itching 11/21/2012 [...] mouth once daily Reported on 07/22/2016 Active hydrochlorothiazide (HYDRODIURIL) 50 MG tablet Take 1 [...] 1 tablet by mouth once daily Active Fluticasone-Salmete rol (ADVAIR DISKUS IN) Inhale 2 puffs by mouth as needed Active GEMFIBROZIL PO Take 600 mg by mouth 2 times daily after meals Active hydroxychloroquine (PLAQUENIL) 200 MG tabletIndications:R heumatoid Arthritis Take 1 (one) tablet by mouth 2 times daily Reasons: Rheumatoid Arthritis Active diclofenac sodium (PENNSAID) 1.5 % topical solution Apply 40 (forty) drops to affected area 4 times daily Active traMADol (ULTRAM) 25 MG TABS tablet Take by mouth every 6 hours as needed Active methenamine hippurate (Hiprex) 1 GM tabletIndications:R ecurrent UTI Take 1 (one) tablet by mouth 2 times daily 180 tablet 3 08/06/2024 Active triamcinolone acetonide (Kenalog) 0.5 % ointmentIndications :Lichen sclerosus et atrophicus of the vulva Apply to affected area 3 times daily 45 g 3 08/06/2024 Active Active Problems Problem Noted Date Diagnosed Date Menopause Rheumatoid arthritis Cirrhosis of liver Interstitial cystitis OAB (overactive bladder) Lichen sclerosus et atrophicus of the vulva Encounters Date Type Department Care Team Description 08/06/2024 2:00 PM MAKE UP WORKER Office Visit [facility] - [facility]IL[facility] PEPPER GRINDER [address] [place] [address], [address] [place] [phone] Thong Grant MD Urinary tract infection without hematuria, site unspecified (Primary Dx); Recurrent UTI; Lichen sclerosus et atrophicus of the vulva 08/06/2024 Travel from Last 3 Months Social History Tobacco [...] Comments Blood Pressure 120/62 08/06/2024 2:28 PM MAKE UP WORKER Pulse 71 08/31/2017 11:55 AM MAKE UP WORKER Temperature 36.6 C (97.9 F) 08/31/2017 12:07 PM MAKE UP WORKER Respiratory Rate 12 08/31/2017 11:55 AM MAKE UP WORKER Oxygen Saturation 98% 08/31/2017 12:33 PM MAKE UP WORKER Inhaled Oxygen Concentration - - Weight 90.7 kg (200 lb) 08/06/2024 2:28 PM MAKE UP WORKER Height 157.5 cm (5' 2 ) 08/06/2024 2:28 PM MAKE UP WORKER Body Mass Index 36.58 08/06/2024 2:28 PM MAKE UP WORKER Plan of Treatment Upcoming Encounters Date Type Department Care Team (Late st Contact Info) Description 08/05/2025 10:20 AM MAKE UP WORKER Office Visit [facility] - [facility] GR[facility] [address] [place] [address], [address] [place] [phone] Thong Grant MD [address] [place] [address] [place] [phone] Health Maintenance Due Date Last Done Comments COLOGUARD (AGES 45-75) - COLON CA SCREENING [address] COLONOGRAPHY - COLON CA SCREENING 1952 FIT - COLON CA SCREENING 1950 FLEX SIG - COLON CA SCREENING 1952 LIPID TESTING 1950 MEDICARE AWV 12 MONTHS 1952 HEPATITIS C SCREENING 12/27/1969 [...] complete this topic MENINGOCOCCAL (Group B) VACCINE SHARED DECISION-MAKING Aged Out No longer eligible based on patient's age to complete this topic MENINGOCOCCAL GROUPS A/C/Y/W VACCINE Aged Out No longer eligible based on patient's age to complete this topic Medical Devices Implanted Type Area Credit Professional Device Identifier Shelf Expiration Date Model / Serial / Lot Syr Inj Coaptite 1cc Implanted:Qty: 1 on 11/22/2012 by [facility] Grant [facility] 07/07/2015 [id number] / / [id number] Syr Inj Coaptite 1cc Implanted:Qty: 1 on 11/22/2012 by Thong Grant MD at [facility] [employer] 04/06/2015 [id number] / / [id number] Procedures Procedure Name Priority Date/Time Associated Diagnosis Comments URINALYSIS AUTO - POINT OF CARE Routine 08/06/2024 2:34 PM MAKE UP WORKER Urinary tract infection without hematuria, site unspecified CULTURE URINE Routine 08/06/2024 2:33 PM MAKE UP WORKER Urinary tract infection without hematuria, site unspecified MAMMOGRAM 11/03/2022 from Last 3 Months or Most Recently Relevant to Health Maintenance Results * URINALYSIS AUTO - POINT OF CARE (08/06/2024 2:34 PM MAKE UP WORKER) Clarity UA POCT cloudy [facility] [...] trace Negative [facility] Specific [place] UA POCT 1.020 1.002 - 1.030 [facility] Ketone UA neg Negative [facility] Bilirubin UA POCT neg Negative [facility] Glucose UA neg Negative [facility] Urine URINE / Unknown 08/06/2024 2 :34 PM MAKE UP WORKER Thong Grant MD LAB - POINT OF CARE ORDERABLES [facility] [address], [facility] [address] [phone] * (ABNORMAL) CULTURE URINE (08/06/2024 2:33 PM MAKE UP WORKER) Urine Culture Routine Final report(A) [facility] Comment: Performed at: [address] [id number] Ring Packer: Fortino Goldstein PhD, Phone: [phone] Result 1 Escherichia coli(A) [facility] Comment: Cefazolin <=4 ug/mL Cefazolin with an NOLAN <=16 predicts susceptibility to the oral agents cefaclor, cefdinir, cefpodoxime, cefprozil, cefuroxime, cephalexin, and loracarbef when used for therapy of uncomplicated urinary tract infections due to E. coli, Klebsiella pneumoniae, and Proteus mirabilis. Multi-Drug Resistant Organism Greater than 100,000 colony forming units per mL Antimicrobial Susceptibility Comment [facility] Comment: S = Susceptible; I [...] CATCH PROCEDURE / Unknown 08/06/2024 2:33 PM MAKE UP WORKER 08/06/2024 Comment:Urine - clean catch R Narrative [facility] - 08/09/2024 5:07 PM MAKE UP WORKER Performed at: [address] [id number] Ring Packer: Fortino Goldstein PhD, Phone: [phone] Thong Grant MD LAB - MICROBIOLOGY O RDERABLES [facility] INSURANCE BILL [address] [place] [address] * MAMMOGRAM (11/03/2022) Anatomical Region Laterality Modality Other 11/03/2022 Narrative 11/03/2022 Ordered by an unspecified provider. Scanned Document SCANNING ONLY from Last 3 Months or Most Recently Relevant to Health Maintenance Advance Directives * FULL RESUSCITATION (Latest Code Status on File) Date Activated Date Inactivated Comments 11/22/2012 11:32 AM 11/22/2012 8:49 PM Care Teams Occasional Caregiver Relationship Specialty Start Date End Date Vasquez Ashley DO [address] [facility] [address] [place] [address] PCP - General Internal Medicine 11/17/12 Thong Grant MD [address] [place] [address] Federal Agent Obstetrics and Gynecology 07/16/16 Clarice Fleming MD [address] [place] [address] Technology Architect Rheumatology 07/21/17
--- OUTSIDE RECORDS SUMMARY | 2024-10-22 12:59 | XMS_ITS | Referral Summary ---
Author Organization [facility] Address [address] [place] [address] Care Team Providers Care Bar Supervisor Name Role Phone Vasquez Ashley Primary Care Provider [phone] Thong Grant MD Unavailable [phone] Clarice Fleming MD Unavailable Source Comments [facility],non-owned Affiliates and Associated Physician Practices is amultiple site organization consisting of ambulatory clinics and hospital sitesin [place], [place], [place] and [place]. This disclosure is being madepursuant to the Care Everywhere program and may not contain all information available regarding this patient. Last updated 18.[facility] Encounters Date Type Department Care Team Description 08/06/2024 Travel 08/06/2024 2:00 PM CONSTRUCTION MANAGER Office Visit [facility] - [facility] BEARING MAKER [address] [place] [address], [address] [place] [phone] Thong Grant MD Urinary tract infection without hematuria, site unspecified (Primary Dx); Recurrent UTI; Lichen sclerosus et atrophicus of the vulva from Last 3 Months Allergies Active Allergy [...] Comments Blood Pressure 120/62 08/06/2024 2:28 PM CONSTRUCTION MANAGER Pulse 71 08/31/2017 11:55 AM CONSTRUCTION MANAGER Temperature 36.6 C (97.9 F) 08/31/2017 12:07 PM CONSTRUCTION MANAGER Respiratory Rate 12 08/31/2017 11:55 AM CONSTRUCTION MANAGER Oxygen Saturation 98% 08/31/2017 12:33 PM CONSTRUCTION MANAGER Inhaled Oxygen Concentration - - Weight 90.7 kg (200 lb) 08/06/2024 2:28 PM CONSTRUCTION MANAGER Height 157.5 cm (5' 2 ) 08/06/2024 2:28 PM CONSTRUCTION MANAGER Body Mass Index 36.58 08/06/2024 2:28 PM CONSTRUCTION MANAGER Functional Status Functional Status Response Date of [...] st Contact Info) Description 08/05/2025 10:20 AM CONSTRUCTION MANAGER Office Visit [facility] - [facility]EWEL BEARING MAKER [address] [place] [address], [address] [place] [address] Thong Grant MD [address] [place] [address] [address] [place] [address] Medical Devices Implanted Type Area Repair Tech Device Identifier Shelf Expiration Date Model / Serial / Lot Syr Inj Coaptite 1cc Implanted:Qty: 1 on 11/22/2012 by Thong Grant MD at [facility] [employer] 07/07/2015 [id number] / / [id number] Syr Inj Coaptite 1cc Implanted:Qty: 1 on 11/22/2012 by Thong Grant MD at [facility] [employer] 04/06/2015 [id number] / / [id number] Procedures Procedure Name Priority Date/Time Associated Diagnosis Comments URINALYSIS AUTO - POINT OF CARE Routine 08/06/2024 2:34 PM CONSTRUCTION MANAGER Urinary tract infection without hematuria, site unspecified CULTURE URINE Routine 08/06/2024 2:33 PM CONSTRUCTION MANAGER Urinary tract infection without hematuria, site unspecified MAMMOGRAM 11/03/2022 from Last 3 Months or Most Recently Relevant to Health Maintenance Results * URINALYSIS AUTO - POINT OF CARE (08/06/2024 2:34 PM CONSTRUCTION MANAGER) Clarity UA POCT cloudy [facility] [...] trace Negative [facility] Specific [place] UA POCT 1.020 1.002 - 1.030 [facility] Ketone UA neg Negative [facility] Bilirubin UA POCT neg Negative [facility] Glucose UA neg Negative [facility] Urine URINE / Unknown 08/06/2024 2 :34 PM CONSTRUCTION MANAGER Thong Grant MD LAB - POINT OF CARE ORDERABLES [facility] [address], [address] [phone] * (ABNORMAL) CULTURE URINE (08/06/2024 2:33 PM CONSTRUCTION MANAGER) Urine Culture Routine Final report(A) [facility] Comment: Performed at: - [address] [id number] Judicial Reporter: Fortino Goldstein PhD, Phone: [phone] Result 1 Escherichia coli(A) [facility]UR[facility] BILL Comment: Cefazolin <=4 ug/mL Cefazolin with an NOLAN <=16 predicts susceptibility to the oral agents cefaclor, cefdinir, cefpodoxime, cefprozil, cefuroxime, cephalexin, and loracarbef when used for therapy of uncomplicated urinary tract infections due to E. coli, Klebsiella pneumoniae, and Proteus mirabilis. Multi-Drug Resistant Organism Greater than 100,000 colony forming units per mL Antimicrobial Susceptibility Comment [facility] INSURANCE BILL Comment: S = Susceptible; I [...] CATCH PROCEDURE / Unknown 08/06/2024 2:33 PM CONSTRUCTION MANAGER 08/06/2024 Comment:Urine - clean catch R Narrative [facility] INSURANCE BILL - 08/09/2024 5:07 PM CONSTRUCTION MANAGER Performed at: 01 - [address] [id number] Judicial Reporter: Fortino Goldstein PhD, Phone: [phone] Thong Grant MD LAB - MICROBIOLOGY O RDERABLES [facility] INSURANCE BILL [address] [place] [address] * MAMMOGRAM (11/03/2022) Anatomical Region Laterality Modality Other 11/03/2022 Narrative 11/03/2022 Ordered by an unspecified provider. Scanned Document SCANNING ONLY from Last 3 Months or Most Recently Relevant to Health Maintenance Advance Directives * FULL RESUSCITATION (Latest Code Status on File) Date Activated Date Inactivated Comments 11/22/2012 11:32 AM 11/22/2012 8:49 PM Care Teams Bar Supervisor Relationship Specialty Start Date End Date Vasquez Ashley DO [address] [facility] [address] [place] [address] PCP - General Internal Medicine 11/17/12 Thong Grant MD [address] [place] [address] Chain Maker Loom Control Obstetrics and Gynecology 07/16/16 Clarice Fleming MD [address] [place] [phone] Steam Table Associate Rheumatology 07/21/17
--- OUTSIDE RECORDS SUMMARY | 2024-10-22 12:59 | XMS_ITS ---
Author Organization [facility] Address [address] [address] Care Team Providers Care Field Artillery Officer Name Role Phone Clarice Fleming MD Unavailable Mary Verdugo NP Unavailable + Hamlet Hale DO Primary Care Provider [phone] Active Problems Problem Noted Date Diagnosed Date [...] 08/25/2017 Assessment & Plan (08/25/2017 9:09 AM MANAGER WEB APPLICATION): She is allergic to [place] and thus [...] 08/25/2017 Assessment & Plan (08/25/2017 9:15 AM MANAGER WEB APPLICATION): Since her last visit she slipped in [...] today. Assessment & Plan (08/25/2017 9:04 AM MANAGER WEB APPLICATION): Will continue to monitor blood work Scabies [...] and reaching remission. She will contact her stone grader and oncologist in regards to their level [...] PA-C Assessment & Plan (08/25/2017 9:23 AM MANAGER WEB APPLICATION): She is currently having a flare of [...] with radiculopathy, lumbar reg ion 04/25/2012 Current Treatment and Therapy Plans No current plan information found. Past Treatment and Therapy Plans No past plan information found. Lifetime Dose Tracking * Chemical Lifetime Dose Automatic Entry Manual Entr y DLP 2,920 mGycm 2,920 mGycm 0 mGycm Resolved Problems Problem Noted Date Diagnosed Date Resolved Date Menopause 01/11/2018 02/02/2019 Encounter for long-term (cur rent) use of other medications 03/11/2017 08/25/2017 Malignant neoplastic disease 05/17/2014 02/02/2019 Overview (11/11/2016): Cancer
--- OUTSIDE RECORDS SUMMARY | 2024-10-22 12:59 | XMS_ITS | Referral Summary ---
Author Organization [facility] Address [address] [facility] [address] [address] Care Team Providers Care Lan Support Specialist Name Role Phone Clarice Fleming MD Unavailable Mary Verdugo DRUM DRIER OPERATOR Unavailable + Hamlet Hale DO Primary Care Provider [phone] Encounters Date Type Department Care Team Description 10/12/[address] [facility] [place] [address] Mary Verdugo, BEN from Last 3 Months Allergies Active Allergy Reactions Criticality Noted Date Comments Adhesive Tape-Silicones Itching High 03/28/2019 Aspirin Itching,Other (See comments) High 07/17/2014 Other reaction(s): GI Bleeding (moderate to severe) Reaction: itching, , Other reaction(s): GI Bleeding (moderate to severe) Reaction: itching, , Cefuroxime Unknown 11/21/2012 Chest tightenss Cefuroxime Axetil Hives Medium 07/17/2014 Cephalosporins Itching Low 11/21/2012 Itching Clindamycin Hydrocodone-Acetaminoph en Itching Reaction: PRURITIS, Ibuprofen Angioedema,Itching,O t her (See comments),Swelling High 11/21/2012 Other reaction(s): GI Problems (moderate to severe) Reaction: PRURITIS, , Reaction: PRURITIS, , , Reaction: mouth swelling, , , Motrin/Ibuprofen/ Advil/ Naproxen - Mouth swelling/itching Levofloxacin Palpitations 11/21/2012 Muscle spasms Reaction: heart racing, , Oxaprozin Other (See comments),Unknown Low 03/28/2019 Penicillins [...] each nostril daily Active cholecalciferol (VITAMIN D-3) 07248 unit capsule Take 1 capsule (10,000 Units [...] 08/25/2017 Assessment & Plan (08/25/2017 9:09 AM WIRELESS WATCHER): She is allergic to [place] and thus [...] 08/25/2017 Assessment & Plan (08/25/2017 9:15 AM WIRELESS WATCHER): Since her last visit she slipped in [...] today. Assessment & Plan (08/25/2017 9:04 AM WIRELESS WATCHER): Will continue to monitor blood work Scabies [...] and reaching remission. 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 Views obtained: bilateral craniocaudal and bilateral mediolateral oblique. Computer Aided Detection was performed. Mammogram Findings: The present examination has been compared to prior imaging studies performed at [facility] on 09/03/2020, 10/28/2021 and 11/03/2022. There are scattered areas of fibroglandular density. Finding 1: There is a focal asymmetry in the posterior of the left breast at 3 o'clock. Finding 2: There are post breast conservation therapy changes in the right breast. Finding remains unchanged from the prior study. Impression: Finding 1: Focal asymmetry in the left breast requires additional evaluation. Diagnostic mammogram and possible ultrasound of the left breast are recommended at this time. Finding 2: Post breast conservation therapy changes in the right breast are benign. OVERALL FINAL ASSESSMENT: BI-RADS CATEGORY 0: Incomplete: Need additional imaging evaluation. Benita Fajardo NP IMG MAMMO PROCEDURES Edited Res ult - Final * Dexa Axial Skeleton Bone Density 1 or 2 Site (11/12/2021 2:58 PM CDT) Anatomical Region Laterality Modality Body N/A Digital Radiogra phy 11/12/2021 3:21 PM CDT Impressions 11/12/2021 4:40 PM CDT 1. The bone mineral density of the [...] 0.5 *Denotes significance at 95% confidence level Procedure Yelena Pierre MD - 11/12/2021 BONE DENSITOMETRY OF THE [...] signed by: Yelena Recinos M.D. Benita Fajardo DRUM DRIER OPERATOR IMG DXA PROCEDURES Final Result from Last 3 Months or Most Recently Relevant to Health Maintenance Insurance MEDICARE [facility] MEDICARE [facility] MEDICARE MEDICARE Care Teams Lan Support Specialist Relationship Specialty Start Date End Date Hamlet Hale DO [address] [facility] [address] [place] [address] PCP - General Internal Medicine 10/01/24 [place] [address] [address] Rheumatology 03/25/17 [place] [address] [address] Nurse Practitioner Rheumatology 01/27/22
--- OUTSIDE RECORDS SUMMARY | 2024-10-22 12:59 | XMS_ITS | Clinical Summary ---
Author Organization [facility] Address [address] [address] Care Team Providers Care Mortuary Operations Manager Name Role Phone Clarice Fleming MD Unavailable Mary Verdugo NP Unavailable + Hamlet Hale DO Primary Care Provider [phone] Allergies Active Allergy Reactions Criticality Noted Date [...] each nostril daily Active cholecalciferol (VITAMIN D-3) 54378 unit capsule Take 1 capsule (10,000 Units [...] 08/25/2017 Assessment & Plan (08/25/2017 9:09 AM AOC AADC OPERATIONS STAFF OFFICER): She is allergic to [place] and thus [...] 08/25/2017 Assessment & Plan (08/25/2017 9:15 AM AOC AADC OPERATIONS STAFF OFFICER): Since her last visit she slipped in [...] today. Assessment & Plan (08/25/2017 9:04 AM AOC AADC OPERATIONS STAFF OFFICER): Will continue to monitor blood work Scabies [...] and reaching remission. She will contact her hot sealing machine operator and oncologist in regards to their level [...] PA-C Assessment & Plan (08/25/2017 9:23 AM AOC AADC OPERATIONS STAFF OFFICER): She is currently having a flare of [...] neoplastic disease 05/17/2014 02/02/2019 Overview (11/11/2016): Cancer Encounters Date Type Department Care Team Description 10/12/2024 Orders Only [facility] [address] [place] [address] Mary Verdugo NP from Last 3 Months Immunizations Immunization Administration Dates Next Due Influenza, [...] BACK SURGERY 07/12/2019 L4-L5 spinal fusion at [facility] Medical History Medical History Date Comments Hypertension hypertension Superficial basal cell carcinoma cancer Asthma asthma Anemia anemia Hx Other Medical BUILDING CONSTRUCTION ESTIMATOR problems Hx Other Medical back or spine [...] on file Legal Sex Female 9:12 AM AOC AADC OPERATIONS STAFF OFFICER Gender Identity Not on file Sexual Orientation Not on file Occupation Industry Job Start Date Job End Date 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 There [...] *Denotes significance at 95% confidence level Procedure Note Yelena Recinos MD - 11/12/2021 [...] Recently Relevant to Health Maintenance Insurance MEDICARE COUNT INCLUDES THE [facility] TRADITIONAL MEDICARE [facility] MEDICARE [facility] MEDICARE Care Teams Mortuary Operations Manager Relationship Specialty Start Date End Date Hamlet Hale DO [address] [place] [address] PCP - General Internal Medicine 10/01/24 [place] [address] [facility] [address] [place] [address] Rheumatology 03/25/17 [place] [address] [facility] [address] [place] [address] Nurse Practitioner Rheumatology 01/27/22
[2024-10-22 14:34] LABS: CRP 7.9 mg/dL (<1.0); Cholesterol 116 mg/dL (0-200); HDL Direct 17 mg/dL; Triglycerides 240 mg/dL (<150)
[2024-10-22 14:42] LABS: LDL Cholesterol Direct 54 mg/dL
== END 2024-10-22 10:38 | disposition home or self-care (01) ==
PROVIDERS: PCP Internal Medicine; Referring Provider Nurse Practitioner; Visit Provider Internal Medicine
DX: E78.5 Hyperlipidemia, unspecified (principal); R70.0 Elevated erythrocyte sedimentation rate
CPT/HCPCS: 36415; 80061; 85652; 86140

== ENCOUNTER 2024-10-25 13:26 | Outpatient (CLI) | payer MEDICARE, SELFPAY ==
--- NOTE | ~2024-10-25 | MR_ITS ---
MRI of the lumbar spine Clinical History: Radiculopathy Technique: Axial T2-weighted images, and sagittal T1-weighted, T2-weighted, and and T2 fat-sat images were acquired. Following intravenous administration of 18 cc ProHance gadolinium, T1-weighted fat-sa t imaging was performed in the axial and sagittal planes. Findings: There is no fracture or subluxation of the lumbar spine. Vertebral bodies maintain normal h eight and alignment. No significant bone marrow signal abnormality seen. At L1-L2, there is no disc bulge or herniation. There is mild to moderate facet arthropathy. No centr al canal stenosis or neural foraminal narrowing. At L2-L3, there is mild to moderate degenerative distended. There is mild disc bulge with severe face t arthropathy. No allyson central canal stenosis. Neural foramina are preserved. At L3-L4, there is mild to moderate degenerative disc narrowing. There is mild diffuse disc bulge wit h mild to moderate facet arthropathy. No central canal stenosis. There is moderate to advanced left n eural foraminal narrowing, and mild right neural foraminal narrowing. At L4-L5, there is mild diffuse disc bulge with mild facet arthropathy. No central canal stenosis. Th ere is moderate bilateral neural foraminal narrowing, left worse than right. At L5-S1, there is minimal disc bulge with advanced facet arthropathy. No central canal stenosis. The re is mild bilateral neural foraminal narrowing. Paravertebral soft tissues are unremarkable. No abnormal postcontrast enhancement identified. Impression: [id number] degenerative spondylosis, as above. Reviewed, dictated and finalized at [facility]. Impression: [id number] degenerative spondylosis, as above.
== END 2024-10-25 13:27 | disposition home or self-care (01) ==
LOC: MICIMG 13:27
PROVIDERS: PCP Internal Medicine; Visit Provider Nurse Practitioner Family
DX: M47.816 Spondylosis without myelopathy or radiculopathy, lumbar region (principal)
CPT/HCPCS: 72158; A9579

== ENCOUNTER 2024-10-26 15:28 | Outpatient (CLI) | payer MEDICARE, SELFPAY ==
--- NOTE | ~2024-10-26 | CT_ITS ---
CLINICAL INDICATION: Left lower quadrant pain COMPARISON: 04/06/2006 TECHNIQUE: Multiple contiguous axial images of the abdomen and pelvis were performed without the admi nistration of intravenous contrast The dose-length product (DLP) was 350.34 mGy-cm. Automated exposure control and iterative reconstruction technique were employed. FINDINGS/OBSERVATIONS: Visualized lower thorax: The bilateral lung bases are clear. The heart is of normal size, without pericardial effusion. Small hiatal hernia is present. Liver: The liver demonstrates homogeneous attenuation and is not enlarged measuring 18 cm in longitudinal di mension. Gallbladder and biliary system: The gallbladder is surgically absent. Pancreas: Limited evaluation of the pancreas secondary to the lack of intravenous contrast. Spleen: The spleen demonstrates homogeneous attenuation and is not enlarged measuring 11 cm in longitudinal d imension. Kidneys: 24 mm rounded focus exophytic from the interpolar region of the right kidney which demonstra keila fluid attenuation, likely a simple cyst. This focus has increased in size since the 2006 examinat ion. The remainder of the bilateral kidneys are otherwise unremarkable, without hydronephrosis or renal ca lculi. Adrenal glands: Unremarkable. Gastrointestinal tract: Clips within the cecum suggesting prior appendectomy. Colonic diverticulosis without surrounding inflammatory change. Appendix: Surgically absent. Vasculature: Calcified atherosclerotic disease. Lymph nodes: Limited evaluation without intravenous contrast. Pelvic structures: The bladder is only minimally distended, and otherwise unremarkable. The uterus is either atrophic or surgically absent. Body wall and musculoskeletal: No significant degenerative disease within the lower thoracic or lumbosacral spine. IMPRESSION: Rectosigmoid diverticulosis without surrounding inflammatory change. Right renal (most likely) cyst for which renal ultrasound is recommended for confirmation. Reviewed, dictated and finalized at location A. IMPRESSION: Rectosigmoid diverticulosis without surrounding inflammatory change. Right renal (most likely) cyst for which renal ultrasound is recommended for co nfirmation.
--- OUTSIDE RECORDS SUMMARY | 2024-10-26 15:34 | XMS_ITS | Data Portability ---
Author Organization [place] [facility],, Romelia kim Address [address] [place] [address] Assessment No assessment recorded. Plan of Treatment Reminders Order Date Submit Date Provider Last Modified By Organization Details Last Modified Time Details Appointments None recorded. Lab allergy test, skin 023 023 [facility], [address], [place], [address], 3 13:00:34 allergy test, skin 017 017 [facility], [address], [address], [place], [address], 7 18:33:00 Referral None recorded. Procedures None recorded. Surgeries None recorded. Imaging None recorded. Medication Orders None recorded. Patient TargetsNo targets recorded. Patient Instructions Encounter Date Encounter Id Patient Instructions Last Modified By Organization Details Last Modified Time 08/05/2017 [id number] drug allergy: care instructions [email or web address] Not available 08/05/2017 14:44:05 10/01/2022 [id number] drug allergy: care instructions [email or web address] Not available 10/01/2022 16:32:42 Reason for Referral None Reported. Results Created Date Observation Date Name Description Value Unit Range Abnormal Flag Note LastModifiedBy Organization Detail LastModifiedTime Result Notes None recorded. Problems Name Problem SNOMED Code Status Onset Date Resolution Date Notes Provider Name and Address Organization Details Recorded Time Rheumatoid arthritis 16285853 Active 2016 Indra perez MD [address], [place], [address] [facility] [place] [facility], 14:40:13 Hypertensive disorder 61253247 Active [address], [place], [address] , [place] [facility], 7 14:42:48 Allergy to drug 381502286 Active [address], [place], [address] , [place] [facility], 14:44:01 Problem Notes None recorded. Medical Equipment None Reported. Allergies Allergen ID Allergen Name Allergen Category Reaction Reaction Severity Criticality Documentation Date Start Date Code Code System Note Provider Name and Address Organization Details Recorded Time 60180 Altace medicatio n Not available Not available Not available 08/05/2017 25619 8 RxNorm greg middendor f null, [place] [facility], 14:30:19 57068 aspirin medicatio n Not available Not available Not available 08/05/2017 1191 RxNorm greg middendor f null, [place] [facility], 14:30:38 99056 Acetamino phen / Propoxyph junior medicatio n Not available Not available Not available 08/05/2017 95436 RxNorm greg middendor f null, [place] [facility], 14:30:51 62595 Daypro medicatio n Not available Not available Not available 08/05/2017 56871 1 RxNorm greg middendor f null, [place] [facility], 14:31:06 68329 ibuprofen medicatio n Not available Not available Not available 08/05/2017 5640 RxNorm greg middendor f null, [place] [facility], 14:31:15 87823 Levaquin medicatio n Not available Not available Not available 08/05/2017 97242 2 RxNorm greg middendor f null, [place] [facility], 7 14:31:56 56269 Product containin g penicilli n (product) medicatio n Not available Not available Not available 08/05/2017 99412 8001 SNOMED greg waldrop null, [place] [facility], 7 14:32:14 Medications Name Sig Start Date Stop Date Status Note LastModified by Organization Details LastModified Time methocarbam ol 500 mg tablet TAKE 1 TABLET BY MOUTH EVERY 6 HOURS NEEDED active Not Available Not Available No t Available ivermectin 3 mg tablet 08/05 completed Not Available Not Available Not Available prednisone 10 mg tablet 08/05 completed Not Available Not Available Not Available tizanidine 4 mg tablet TAKE 1 TABLET BY MOUTH EVERY 8 HOURS NEEDED active Not Available Not Available No t Available hydrochloro thiazide 50 mg tablet active Not Available Not Available No t Available doxepin 25 mg capsule 08/05 completed Not Available Not Available Not Available valacyclovi r 1 gram tablet TAKE 1 TABLET BY MOUTH THREE TIMES DAILY active Not Available Not Available No t Available minocycline 100 mg capsule 08/05 completed Not Available Not Available Not Available prednisone 20 mg tablet TAKE 1 TABLET BY MOUTH TWICE DAILY WITH FOOD FOR 4 DAYS active Not Available Not Available No t Available prednisone 5 mg tablet active Not Available Not Available Not Available permethrin 5 % topical cream 08/05 completed Not Available Not Available Not Available meclizine 12.5 mg tablet TAKE 1 TABLET BY MOUTH THREE TIMES DAILY NEEDED FOR MOTION SICKNESS. MAY CAUSE DROWSINES S. DO NOT TAKE WITH ALCOHOL active Not Available Not Available No t Available triamcinolo ne acetonide 0.5 % topical ointment active Not Available Not Available Not Available potassium chloride ER 10 mEq tablet,exte nded release active Not Available Not Available Not Available sulfamethox azole 800 mg-trimetho prim 160 mg tablet TAKE 1 TABLET BY MOUTH EVERY 12 HOURS active Not Available Not Available No t Available tramadol 50 mg tablet 08/05 completed Not Available Not Available Not Available triamcinolo ne acetonide 0.1 % topical cream active Not Available Not Available Not Available clobetasol 0.05 % topical gel active Not Available Not Available Not Available pantoprazol e 20 mg tablet,adolph yed release active Not Available Not Available Not Available cyproheptad ine 4 mg tablet 08/05 completed Not Available Not Available Not Available quinapril 10 mg tablet active Not Available Not Available Not Available lorazepam 0.5 mg tablet TAKE 1 TABLET BY MOUTH TWICE DAILY NEEDED FOR ANXIETY active Not Available Not Available No t Available gemfibrozil 600 mg tablet active Not Available Not Available Not Available levothyroxi ne 50 mcg tablet TAKE 1 TABLET BY MOUTH DAILY active Not Available Not Available No t Available ropinirole 2 mg tablet active Not Available Not Available Not Available pantoprazol e 40 mg tablet,adolph yed release TAKE 1 TABLET BY MOUTH TWICE DAILY active Not Available Not Available No t Available Advair Diskus 250 mcg-50 mcg/dose powder for inhalation Inhale 1 puff twice a day by inhalatio n route. active Not Available Not Available No t Available montelukast 10 mg tablet active Not Available Not Available Not Available mupirocin 2 % topical ointment active Not Available Not Available Not Available hydroxychlo roquine 200 mg tablet active Not Available Not Available No t Available methylpredn isolone 4 mg tablets in a dose pack TAKE DIRECTED active Not Available Not Available No t Available sertraline 50 mg tablet TAKE 1 TABLET BY MOUTH DAILY active Not Available Not Available No t Available tamoxifen 20 mg tablet active Not Available Not Available Not Available escitalopra m 10 mg tablet TAKE 1 TABLET BY MOUTH DAILY active Not Available Not Available No t Available metoprolol tartrate 25 mg tablet active Not Available Not Available No t Available nitrofurant oin monohydrate /macrocryst als 100 mg capsule TAKE 1 CAPSULE BY MOUTH TWICE DAILY WITH THE MORNING AND EVENING MEAL FOR 5 DAYS active Not Available Not Available No t Available Boostrix Tdap 2.5 Lf unit-8 mcg-5 Lf/0.5 mL intramuscul ar syringe 08/05 completed Not Available Not Available Not Available Uribel 118 mg-10 mg-40.8 mg-36 mg capsule active Not Available Not Available Not Available Suprep Bowel Prep Kit 17.5 gram-3.13 gram-1.6 gram oral solution 08/05 completed Not Available Not Available Not Available ID NOW COVID-19 Test Kit TEST DIRECTED TODAY active Not Available Not Available No t Available Vitals Date Recorded Body height Body mass index (BMI) Body weight Body temperature Systolic blood pressure Diastolic blood pressure Provider Name and Address Organization Details Last Updated DateTime 7 160.02 cm 34 kg/m2 94787.7 4 g 98.1 [degF] 112 mm[Hg] 76 mm[Hg] greg waldrop [place] [facility], 7 14:30:04 Date Recorded Body height Body mass index (BMI) Body weight Heart rate Oxygen saturation Oxygen saturation in Arterial blood by Pulse oximetry Respiratory rate Body temperature Systolic blood pressure Diastolic blood pressure Provider Name and Address Organization Details Last Updated DateTime 3 157.48 cm 38.4 kg/m2 61322.4 g 83 /min 95 % 95 % 18 /min 97.3 [degF] 124 mm[Hg] 72 mm[Hg] son fields [place] [facility], 3 11:40:44 Social History Question Answer Notes LastModified by Organizat ion Details LastModified Time Tobacco Smoking Status Never Smoker greg rooneyparthaangelina bowen [place] [facility], 08/05/2017 14:32:43 What Was The Date Of Your Most Recent Tobacco Screening? 08/05/2017 [email or web address] Information not available 10/01/2022 Sex: Unknown Functional Status None recorded. Mental Status None recorded. Family History Relationship Description Onset Age of this Age Resolved Age Notes LastModified by Organization Details LastModified Time Father No current problems or disability DM [email or web address] Not available 14:32:36 Mother No current problems or disability STROKE vmiddendorf Not available 14:32:41 Medical History Condition Response Diabetes N Anxiety Disorder N Coronary Artery Disease N Gout N Arthritis N Kidney Stones N Hyperthyroidism N Tuberculosis N Cancer N Diverticulitis N Stroke N Asthma N Allergies N COPD N Depression N Stress N Hypothyroidism N GERD/Reflux N High Cholesterol N Liver Disease N Heart Disease N Pulmonary Embolism N Fibromyalgia N Hypertension N Osteoporosis N Kidney Disease N Gynecological HistoryNo gynecological history recorded. Obstetrics History GPAL:G 0 P 0 0 0 0 Past Encounters Encounter ID Performer Location Encounter Start Date Encounter Closed Date Diagnosis/Indication Diagnosis SNOMED-CT Code Diagnosis ICD10 Code Diagnosis Note [id number] Indra amaya MD OFFICE [address] [place] [address] 08/05/2017 13:10:56 08/05/2017 18:28:02 Allergy to drug 945566558 T50.905A [id number] Indra amaya MD OFFICE [address] [facility] [place] [address] 10/01/2022 10:46:38 10/01/2022 12:59:40 Allergy to drug 173390025 T50.905A Patient was skin tested to Simponi and failed to show any IgE mediated reaction Health Concerns Section Related Observation LastModified by Organization Detai ls LastModified Time None Recorded Concern Status LastModified by Organization Details LastModified Time None Recorded Advance Directives Directive None Recorded Payers Encounter Date Sequence Insurance Name Policy Number Policy Wright Covered Member ID Wright Member ID Guarantor Name 08/05/2017 2 [place] [id number] Norma Mejias [id number] Norma Mejias 08/05/2017 1 [place] Norma L Mejias [id number] Norma Mejias 10/01/2022 2 [place] [id number] Norma Mejias [id number] Norma Mejias 10/01/2022 1 [place] Norma L Mejias [id number] Norma Mejias Notes Date Note Type Note Provider Name and Address Organization Details Recorded Time 08/05/2017 text/html Norma comes in for evaluation of a potential drug allergies. She is a 67-year-old woman with a history of rheumatoid arthritis was seen by Dr. Fleming. She was put on Orencia and had urticaria after the first dose. She denies any difficulty swallowing or difficulty with shortness of breath. She comes in today to see whether she is allergic to the biologic. Indra Rankin MD [address] [place] [address],[address], [place], [address], [facility] [place] [facility], 08/05/2017 19:07:39 10/01/2022 text/html Norma has a history of rheumatoid arthritis. She has recently been started on Simponi had no problems with her first dose but after her second dose she developed hives on her lower extremity which is associated with itching. She took some Benadryl and she was able to tolerate it without difficulty. She denied any systemic symptoms.She comes in today to see if she is allergic. Indra Rankin MD [address], [place], [address], [facility] [place] [facility], 10/01/2022 16:32:45 OBGyn Episode No OBEpisode recorded.
--- OUTSIDE RECORDS SUMMARY | 2024-10-26 15:34 | XMS_ITS | Clinical Summary ---
Author Organization [facility] [address] [place] [address] Address [address] [place] [address] Care Team Providers Care Cloud Engagement Partner Name Role Phone Vasquez Ashley DO Primary Care Provider [phone] Allergies Active Allergy Reactions Criticality Noted Date [...] 6 Tablets 40 Tablet 07/13/2019 11:28 AM BEVEL MILL OPERATOR 9 Active diphenhydrAMINE (BENADRYL) 25 mg capsule [...] Encounters Date Type Department Care Team Description 10/24/2024 External Device Data STL ABSTRACTION Provider, Abstract 10/13/2024 External Device Data STL ABSTRACTION Provider, [...] 37.3 C (99.2 F) 07/13/2019 7:51 AM BEVEL MILL OPERATOR Respiratory Rate 14 07/13/2019 7:51 AM BEVEL MILL OPERATOR Oxygen Saturation 98% 03/28/2024 1:00 PM CDT Inhaled Oxygen Concentration - - Weight 90.3 kg (199 lb) 03/28/2024 1:00 PM CDT Height 157.5 cm (5' 2 ) 03/28/2024 1:00 PM CDT Body Mass Index 36.4 03/28/2024 1:00 PM CDT Plan of Treatment Upcoming Encounters Date Type Department Care Team (Late st Contact Info) Description 11/19/2024 10:00 AM CDT Office Visit [facility] [address] [place] [address] Marcelino Oconnell MD [address] [address] Health Maintenance Due Date Last Done [...] 11/12/2021, 08/05/2017 Medical Devices Implanted Type Area Waiter/Waitress Dining Car Device Identifier Shelf Expiration Date Model / Serial / Lot Hemostatic Surgiflo 8ml W/Thrombin 2994 - [id number] Implanted:Qty: 1 on 07/12/2019 by Joe Dewitt MD at [facility] Right: Spine Lumbar [employer] 06/07/2020 [id number] / / [id number] Insurance MEDICARE PART A AND B [facility] Medicare Part D MEDICARE PART A AND B BC SUPP Advance Directives For more information, please contact: [phone] * Full Code (Latest Code Status on File) Date Activated Date Inactivated Comments 07/12/2019 3:08 PM 07/13/2019 3:12 PM Care Teams Cloud Engagement Partner Relationship Specialty Start Date End Date Vasquez Ashley DO [address] [facility] [address] [place] [address] PCP - General Internal Medicine 03/15/19
--- OUTSIDE RECORDS SUMMARY | 2024-10-26 15:34 | XMS_ITS | Referral Summary ---
Author Organization [facility] Address [address] [facility] [place] [address] Care Team Providers Care Draw Furnace Tender Name Role Phone Clarice Fleming MD Unavailable Mary Verdugo SYSTEM SUPPORT DEVELOPER Unavailable + Hamlet Hale DO Primary Care Provider Encounters Date Type Department Care Team Description 10/12/2024 Orders Only [facility] [place] [address] Mary Verdugo, BEN from Last 3 Months [...] each nostril daily Active cholecalciferol (VITAMIN D-3) 22783 unit capsule Take 1 capsule (10,000 Units [...] 08/25/2017 Assessment & Plan (08/25/2017 9:09 AM STEM ROLLER): She is allergic to Orenica and [...] 08/25/2017 Assessment & Plan (08/25/2017 9:15 AM STEM ROLLER): Since her last visit she slipped [...] today. Assessment & Plan (08/25/2017 9:04 AM STEM ROLLER): Will continue to monitor blood work [...] and reaching remission. 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 Benita Fajardo SYSTEM SUPPORT DEVELOPER IMG DXA PROCEDURES Final Result from Last 3 Months or Most Recently Relevant to Health Maintenance Insurance MEDICARE [facility] MEDICARE [facility] MEDICARE MEDICARE Care Teams Draw Furnace Tender Relationship Specialty Start Date End Date Hamlet Hale DO [address] [facility] [address] [place] [address] PCP - General Internal Medicine 10/01/24 [place] [address] [address] Rheumatology 03/25/17 [place] [address] [address] Nurse Practitioner Rheumatology 01/27/22
--- OUTSIDE RECORDS SUMMARY | 2024-10-26 15:34 | XMS_ITS | Clinical Summary ---
Author Organization [facility] Address [address] [address] Care Team Providers Care Control Panel Assembler Name Role Phone Clarice Fleming MD Unavailable Mary Verdugo NP Unavailable + Hamlet Hale DO Primary Care Provider [phone] Allergies Active Allergy Reactions Criticality Noted Date [...] each nostril daily Active cholecalciferol (VITAMIN D-3) 26718 unit capsule Take 1 capsule (10,000 Units [...] 08/25/2017 Assessment & Plan (08/25/2017 9:09 AM GAUGE CONTROLLER): She is allergic to Orenica and thus [...] 08/25/2017 Assessment & Plan (08/25/2017 9:15 AM GAUGE CONTROLLER): Since her last visit she slipped in [...] today. Assessment & Plan (08/25/2017 9:04 AM GAUGE CONTROLLER): Will continue to monitor blood work Scabies [...] and reaching remission. She will contact her agricultural specialist and oncologist in regards to their [...] PA-C Assessment & Plan (08/25/2017 9:23 AM GAUGE CONTROLLER): She is currently having a flare of [...] Team Description 10/12/2024 Orders Only [facility] [address] [place] [address] Mary Verdugo NP from Last 3 Months [...] BACK SURGERY 07/12/2019 L4-L5 spinal fusion at [facility] Medical History Medical History Date Comments Hypertension hypertension Superficial basal cell carcinoma cancer Asthma asthma Anemia anemia Hx Other Medical TREE FELLER problems Hx Other Medical back or spine [...] on file Legal Sex Female 9:12 AM GAUGE CONTROLLER Gender Identity Not on file Sexual Orientation Not on file Occupation Industry Job Start Date Job End Date Previous computer at [employer] Not on file Not on f [...] on stairs Contact your local community or [facility] for information on exercise, fall prevention [...] compared to prior imaging studies performed at [facility] on 09/03/2020, 10/28/2021 and 11/03/2022. There [...] Recently Relevant to Health Maintenance Insurance MEDICARE [facility] TRADITIONAL MEDICARE [facility] MEDICARE [facility] MEDICARE Care Teams Control Panel Assembler Relationship Specialty Start Date End Date Hamlet Hale DO [address] [place] [address] PCP - General Internal Medicine 10/01/24 [place] [address] [facility] [address] [place] [address] Rheumatology 03/25/17 [place] [address] [facility] [address] [place] [address] Nurse Practitioner Rheumatology 01/27/22
--- OUTSIDE RECORDS SUMMARY | 2024-10-26 15:34 | XMS_ITS | Encounter Summary ---
Author Organization [facility] Address [address] [place] [address] Care Team Providers Care Hood Fitter Name Role Phone Vasquez Ashley MD Primary Care Provider [phone] Clarice Fleming MD Unavailable Ramses Rosa MD Unavailable [phone] Mary Verdugo NP Unavailable + Hamlet Hale DO Primary Care Provider [phone] Encounter Details Date Type Department Care Team (Late st Contact Info) Description 04/24/2019 Telephone [facility] Center at [facility] [address] [facility] [address] [place], [place] [id number] Amanda Brady MD [address] [facility] [place] [address] Social History Tobacco Use Types Packs/Day Years Used Date Smoking Tobacco: Never Smokeless Tobacco: Never Alcohol Use Standard Drinks/Week Comments No 0 (1 standard drink = 0.6 oz pur e alcohol) Comments No Sex and Gender Information Value Date Recorded Sex Assigned at Not on file Legal Sex Female 9:12 AM IMPORT CUSTOMER SERVICE MANAGER Gender Identity Not on file Sexual Orientation Not on file Occupation Industry Job Start Date Job End Date Previous computer at [employer] Not on file Not on [...] on stairs Contact your local community or [facility] for information on exercise, fall prevention programs, or options for improving home safety. documented as of this encounter Visit Diagnoses Not on filedocumented in this encounter Additional Health Concerns Infection Onset Date Last Indicated Resolved Time COVID: Suspected 11/24/2022 11/25/2022 11/25/2022 3:28 AM CDT documented as of this encounter Care Teams Hood Fitter Relationship Specialty Start Date End Date Vasquez Ashley MD [address] [place] [address] PCP - General 11/05/16 09/30/24 Hamlet Hale DO [address] [place] [address] PCP - General Internal Medicine 10/01/24 [place] [address] [facility] [address] [place] [address] Rheumatology 03/25/17 Ramses Rosa MD [address] [place] [address] [address] [place] [address] Medical Oncology 03/25/17 09/02/20 [place] [address] [address] [place] [address] Nurse Practitioner Rheumatology 01/27/22 documented as of this encounter
--- OUTSIDE RECORDS SUMMARY | 2024-10-26 15:34 | XMS_ITS ---
Author Organization [facility] Address [address] [address] Care Team Providers Care Powder Blender And Pourer Name Role Phone Clarice Fleming MD Unavailable Mary Verdugo NP Unavailable + Hamlet Hale DO Primary Care Provider [phone] Active Problems Problem Noted Date Diagnosed Date [...] 08/25/2017 Assessment & Plan (08/25/2017 9:09 AM RADIO ELECTRONICS OFFICER): She is allergic to [place] and [...] 08/25/2017 Assessment & Plan (08/25/2017 9:15 AM RADIO ELECTRONICS OFFICER): Since her last visit she slipped [...] today. Assessment & Plan (08/25/2017 9:04 AM RADIO ELECTRONICS OFFICER): Will continue to monitor blood work [...] and reaching remission. She will contact her record cutter and oncologist in regards to their level [...] PA-C Assessment & Plan (08/25/2017 9:23 AM RADIO ELECTRONICS OFFICER): She is currently having a flare [...]
--- OUTSIDE RECORDS SUMMARY | 2024-10-26 15:34 | XMS_ITS | Encounter Summary ---
Author Organization [facility] Healthcare Address [address] [place] [address] Care Team Providers Care Software Engineering Specialist Name Role Phone Vasquez Ashley MD Primary Care Provider [phone] Clarice Fleming MD Unavailable Ramses Rosa MD Unavailable [phone] Mary Verdugo NP Unavailable + Hamlet Hale DO Primary Care Provider [phone] Encounter Details Date Type Department Care Team (Late st Contact Info) Description 11/03/2018 Telephone [facility] at [facility] [address] [facility] [address] [place], [place] [id number] Amanda Brady MD [address] [facility] [place] [address] Social History Tobacco Use Types Packs/Day Years Used Date Smoking Tobacco: Never Smokeless Tobacco: Never Alcohol Use Standard Drinks/Week Comments No 0 (1 standard drink = 0.6 oz pur e alcohol) Comments No Sex and Gender Information Value Date Recorded Sex Assigned at Not on file Legal Sex Female 9:12 AM BARREL ASSEMBLER Gender Identity Not on file Sexual Orientation [...] on stairs Contact your local community or [facility] for information on exercise, fall prevention programs, or options for improving home safety. documented as of this encounter Visit Diagnoses Not on filedocumented in this encounter Additional Health Concerns Infection Onset Date Last Indicated Resolved Time COVID: Suspected 11/24/2022 11/25/2022 11/25/2022 3:28 AM CDT documented as of this encounter Care Teams Software Engineering Specialist Relationship Specialty Start Date End Date Vasquez Ashley MD [address] [facility] 120 [place] [address] PCP - General 11/05/16 09/30/24 Hamlet Hale DO [address] [facility] 21 [place] [address] PCP - General Internal Medicine 10/01/24 [place] [address] [facility] 70 [place] [address] Rheumatology 03/25/17 Ramses Rosa MD [address] [facility] 372 [place] [address] Medical Oncology 03/25/17 09/02/20 [place] [address] [address] Nurse Practitioner Rheumatology 01/27/22 documented as of this encounter
--- OUTSIDE RECORDS SUMMARY | 2024-10-26 15:34 | XMS_ITS | Encounter Summary ---
Author Organization [facility] Healthcare Address [address] [place] [address] Care Team Providers Care Canvassing Manager Name Role Phone Vasquez Ashley MD Primary Care Provider [phone] Clarice Fleming MD Unavailable Ramses Rosa MD Unavailable [phone] Mary Verdugo NP Unavailable + Hamlet Hale DO Primary Care Provider [phone] Encounter Details Date Type Department Care Team (Late st Contact Info) Description 01/12/2019 Telephone [facility] Center at [facility] [address] [facility] [address] [place], [place] [id number] Amanda Brady MD [address] [facility] [place] [address] Social History Tobacco Use Types Packs/Day Years Used Date Smoking Tobacco: Never Smokeless Tobacco: Never Alcohol Use Standard Drinks/Week Comments No 0 (1 standard drink = 0.6 oz pur e alcohol) Comments No Sex and Gender Information Value Date Recorded Sex Assigned at Not on file Legal Sex Female 9:12 AM TRIAL MGR Gender Identity Not on file Sexual Orientation [...] on stairs Contact your local community or [facility] for information on exercise, fall prevention programs, or options for improving home safety. documented as of this encounter Visit Diagnoses Not on filedocumented in this encounter Additional Health Concerns Infection Onset Date Last Indicated Resolved Time COVID: Suspected 11/24/2022 11/25/2022 11/25/2022 3:28 AM CDT documented as of this encounter Care Teams Canvassing Manager Relationship Specialty Start Date End Date Vasquez Ashley MD [address] [facility] 120 [place] [address] PCP - General 11/05/16 09/30/24 Hamlet Hale DO [address] [facility] 21 [place] [address] PCP - General Internal Medicine 10/01/24 [place] [address] [facility] 70 [place] [address] Rheumatology 03/25/17 Ramses Rosa MD [address] [facility] 372 [place] [address] Medical Oncology 03/25/17 09/02/20 [place] [address] [address] Nurse Practitioner Rheumatology 01/27/22 documented as of this encounter
--- OUTSIDE RECORDS SUMMARY | 2024-10-26 15:34 | XMS_ITS | Clinical Summary ---
Author Organization [facility] Address [address] [place] [address] Care Team Providers Care Meter Tester Primary Name Role Phone Unavailable Primary Care Provider [...]
--- OUTSIDE RECORDS SUMMARY | 2024-10-26 15:34 | XMS_ITS | Clinical Summary ---
Author Organization [facility] Address [address] [facility] [place] [address] Care Team Providers Care Automotive Salesperson Name Role Phone Vasquez Ashley Primary Care Provider Thong Grant MD Unavailable [phone] Clarice Fleming MD Unavailable Source Comments [facility],non-owned Affiliates and Associated Physician Practices is amultiple site organization consisting of ambulatory clinics and hospital sitesin [place], [place], [place]. This disclosure is being madepursuant to the Care Everywhere program and may not contain all information available regarding this patient. Last updated 18.[facility] Allergies Active Allergy Reactions Criticality Noted [...] Department Care Team Description 08/06/2024 2:00 PM PRIMARY CARE MD Office Visit [facility] - FOOD AND BEVERAGE CASHIER [address] [place] [address], [address] [place] [address] Thong Grant MD Urinary tract infection [...] Comments Blood Pressure 120/62 08/06/2024 2:28 PM PRIMARY CARE MD Pulse 71 08/31/2017 11:55 AM PRIMARY CARE MD Temperature 36.6 C (97.9 F) 08/31/2017 12:07 PM PRIMARY CARE MD Respiratory Rate 12 08/31/2017 11:55 AM PRIMARY CARE MD Oxygen Saturation 98% 08/31/2017 12:33 PM PRIMARY CARE MD Inhaled Oxygen Concentration - - Weight 90.7 kg (200 lb) 08/06/2024 2:28 PM PRIMARY CARE MD Height 157.5 cm (5' 2 ) 08/06/2024 2:28 PM PRIMARY CARE MD Body Mass Index 36.58 08/06/2024 2:28 PM PRIMARY CARE MD Plan of Treatment Upcoming Encounters Date Type Department Care Team (Late st Contact Info) Description 08/05/2025 10:20 AM PRIMARY CARE MD Office Visit [facility] - FOOD AND BEVERAGE CASHIER [address] [place] [address], [address] [place] [address] Thong Grant MD [address] [place] [address] [address] [place] [address] Health Maintenance Due Date Last Done [...] this topic Medical Devices Implanted Type Area Java Portal Developer Device Identifier Shelf Expiration Date Model / Serial / Lot Syr Inj Coaptite 1cc Implanted:Qty: 1 on 11/22/2012 by Thong Grant MD at [facility] 07/07/2015 [id number] / / [id number] Syr Inj Coaptite 1cc Implanted:Qty: 1 on 11/22/2012 by Thong Grant MD at [facility] [employer] 04/06/2015 [id number] / / [id number] Procedures Procedure Name Priority Date/Time Associated Diagnosis Comments URINALYSIS AUTO - POINT OF CARE Routine 08/06/2024 2:34 PM PRIMARY CARE MD Urinary tract infection without hematuria, site unspecified CULTURE URINE Routine 08/06/2024 2:33 PM PRIMARY CARE MD Urinary tract infection without hematuria, site unspecified MAMMOGRAM 11/03/2022 from Last 3 Months or Most Recently Relevant to Health Maintenance Results * URINALYSIS AUTO - POINT OF CARE (08/06/2024 2:34 PM PRIMARY CARE MD) Clarity UA POCT cloudy [facility] [...] trace Negative [facility] Specific [place] UA POCT 1.020 1.002 - 1.030 [facility] Ketone UA neg Negative [facility] Bilirubin UA POCT neg Negative [facility] Glucose UA neg Negative [facility] Urine URINE / Unknown 08/06/2024 2 :34 PM PRIMARY CARE MD Thong Grant MD LAB - POINT OF CARE ORDERABLES [facility] [address], [facility] [address] [phone] * (ABNORMAL) CULTURE URINE (08/06/2024 2:33 PM PRIMARY CARE MD) Urine Culture Routine Final report(A) [facility] INSURANCE BILL Comment: Performed at: [address] [id number] Football Scout: Fortino Goldstein PhD, Phone: [phone] Result 1 Escherichia coli(A) [facility] INSURANCE BILL Comment: Cefazolin <=4 ug/mL Cefazolin with an NOLAN <=16 predicts susceptibility to the oral agents cefaclor, cefdinir, cefpodoxime, cefprozil, cefuroxime, cephalexin, and loracarbef when used for therapy of uncomplicated urinary tract infections due to E. coli, Klebsiella pneumoniae, and Proteus mirabilis. Multi-Drug Resistant Organism Greater than 100,000 colony forming units per mL Antimicrobial Susceptibility Comment [facility] INSURANCE BILL Comment: S = Susceptible; I [...] CATCH PROCEDURE / Unknown 08/06/2024 2:33 PM PRIMARY CARE MD 08/06/2024 Comment:Urine - clean catch R Narrative [facility] INSURANCE BILL - 08/09/2024 5:07 PM PRIMARY CARE MD Performed at: [address] [id number] Football Scout: Fortino Goldstein PhD, Phone: [phone] Thong Grant MD LAB - MICROBIOLOGY O RDERABLES [facility] INSURANCE BILL [address] [place] [address] * MAMMOGRAM (11/03/2022) Anatomical Region Laterality Modality Other 11/03/2022 Narrative 11/03/2022 Ordered by an unspecified provider. Scanned Document SCANNING ONLY from Last 3 Months or Most Recently Relevant to Health Maintenance Advance Directives * FULL RESUSCITATION (Latest Code Status on File) Date Activated Date Inactivated Comments 11/22/2012 11:32 AM 11/22/2012 8:49 PM Care Teams Automotive Salesperson Relationship Specialty Start Date End Date Vasquez Ashley DO [address] [facility] [address] [place] [address] PCP - General Internal Medicine 11/17/12 Thong Grant MD [address] [place] [address] Blue Line Trimmer Obstetrics and Gynecology 07/16/16 Clarice Fleming MD [address] [place] [address] Product Marketing Consultant Rheumatology 07/21/17
--- OUTSIDE RECORDS SUMMARY | 2024-10-26 15:34 | XMS_ITS | Encounter Summary ---
Author Organization [facility] Address [address] [place] [address] Phone Care Team Providers Care Rn Wound Care Name Role Phone Vasquez Ashley MD Primary Care Provider [phone] Clarice Fleming MD Unavailable Ramses Rosa MD Unavailable [phone] Mary Verdugo NP Unavailable + Hamlet Hale DO Primary Care Provider [phone] Reason for Visit * Reason Onset Date Comments PROVIDER & SCHEDULE UPDATE 12/07/2018 Encounter Details Date Type Department Care Team (Late st Contact Info) Description 12/07/2018 Telephone [facility] [address] [facility] [address] [place] [address] Raisa Craven RMA PROVIDER & SCHEDULE UPDATE Social History Tobacco Use Types Packs/Day Years Used Date Smoking Tobacco: Never Smokeless Tobacco: Never Alcohol Use Standard Drinks/Week Comments No 0 (1 standard drink = 0.6 oz pur e alcohol) Comments No Sex and Gender Information Value Date Recorded Sex Assigned at Not on file Legal Sex Female 9:12 AM 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 documented as of this encounter Visit Diagnoses Not on filedocumented in this encounter Additional Health Concerns Infection Onset Date Last Indicated Resolved Time COVID: Suspected 11/24/2022 11/25/2022 11/25/2022 3:28 AM CDT documented as of this encounter Care Teams Rn Wound Care Relationship Specialty Start Date End Date Vasquez Ashley MD [address] [facility] 120 [place] [address] PCP - General 11/05/16 09/30/24 Hamlet Hale DO [address] [facility] 21 [place] [address] PCP - General Internal Medicine 10/01/24 [place] [address] [facility] 70 [place] [address] Rheumatology 03/25/17 Ramses Rosa MD [address] [facility] 372 [place] [address] Medical Oncology 03/25/17 09/02/20 [place] [address] [address] Nurse Practitioner Rheumatology 01/27/22 documented as of this encounter
== END 2024-10-26 15:29 | disposition home or self-care (01) ==
PROVIDERS: PCP Internal Medicine; Visit Provider Nurse Practitioner
DX: K57.30 Diverticulosis of large intestine without perforation or abscess without bleeding (principal)
CPT/HCPCS: 74176

== ENCOUNTER 2025-05-17 14:26 | Outpatient (CLI) | payer MEDICARE, SELFPAY ==
--- NOTE | ~2025-05-17 | XR_ITS ---
EXAMINATION: XR knee LT 3V, 05/17/2025 14:53 CDT HISTORY: M25.561 - Pain in right knee COMPARISON: No comparisons available. Findings: No acute fracture or malalignment. Moderate tricompartmental degenerative changes Soft tissues unremarkable. Impression: No acute fracture or malalignment. Reviewed, dictated and finalized at location P. Impression: No acute fracture or malalignment.
--- NOTE | ~2025-05-17 | XR_ITS ---
EXAMINATION: XR knee RT 3V, 05/17/2025 14:53 CDT HISTORY: M25.561 - Pain in right knee COMPARISON: No comparisons available. Findings: No acute fracture or malalignment. Moderate tricompartmental degenerative changes Soft tissues unremarkable. Impression: No acute fracture or malalignment. Reviewed, dictated and finalized at location P. Impression: No acute fracture or malalignment.
== END 2025-05-17 14:27 | disposition home or self-care (01) ==
PROVIDERS: PCP Internal Medicine; Visit Provider Internal Medicine
DX: M25.561 Pain in right knee (principal); M25.562 Pain in left knee
CPT/HCPCS: 73562

== ENCOUNTER 2025-06-20 11:06 | Outpatient (CLI) | payer MEDICARE, SELFPAY ==
[2025-06-20 11:48] LABS: Hematocrit 39.5 % (37.0-47.0); Hemoglobin 12.7 g/dL (12.0-15.0); Immature Granulocyte Percent A 0.5 % (0-0.5); Lymphocytes Absolute Auto 1.79 K/mm3 (0.9-3.2); Mean Corpuscular HGB Conc 32.2 g/dl (32-36); Mean Corpuscular Hemoglobin 29.3 pg (26-34); Mean Corpuscular Volume 91.2 fl (80-100); Nucleated Red Blood Cells Absolute Auto 0.000 K/mm3 (0.0-0.012); Nucleated Red Blood Cells Perc 0.0 % (0.0-0.2); Platelet Count Result 309 k/mm3 (150-375); Red Blood Count 4.33 M/mm3 (4.2-5.4); White Blood Count 7.4 K/mm3 (4.5-10.0)
[2025-06-20 12:07] LABS: Alanine Aminotransferase 45 U/L (6-35); Albumin Level 4.4 g/dL (3.5-5.1); Alkaline Phosphatase 94 U/L (38-126); Anion Gap 6 mmol/L (4-12); Aspartate Amino Transferase 43 U/L (14-36); Bilirubin,Total 0.6 mg/dL (0.2-1.3); Blood Urea Nitrogen 29 mg/dL (7-17); Calcium 9.7 mg/dL (8.4-10.2); Carbon Dioxide 30 mmol/L (22-30); Chloride 100 mmol/L (98-107); Cholesterol 164 mg/dL (0-200); Estimated Glomerular Filt Rate > 60; Glucose 111 mg/dL (65-110); HDL Direct 54 mg/dL; Hemoglobin A1C 5.9 % (<5.7); Potassium 5.1 mmol/L (3.4-5.0); Sodium 136 mmol/L (137-145); Total Protein 7.7 g/dL (6.3-8.2); Triglycerides 131 mg/dL (<150)
--- OUTSIDE RECORDS SUMMARY | 2025-06-20 12:10 | XMS_ITS | Encounter Summary ---
Author Organization [facility] Address [address] [place] [address] Phone Care Team Providers Care Assistant Press Operator Offset Name Role Phone Vasquez Ashley MD Primary Care Provider [phone] Clarice Fleming MD Unavailable Ramses Rosa MD Unavailable [phone] Mary Verdugo NP Unavailable + Hamlet Hale DO Primary Care Provider [phone] Reason for Visit * Reason Onset Date Comments PROVIDER & SCHEDULE UPDATE 12/07/2018 Encounter Details Date Type Department Care Team (Late st Contact Info) Description 12/07/2018 Telephone [facility] Medicine Oncology [address] [facility] 100 [place] [address] Raisa Craven RMA PROVIDER & SCHEDULE UPDATE Social History Tobacco Use Types Packs/Day Years Used Date Smoking Tobacco: Never Smokeless Tobacco: Never Alcohol Use Standard Drinks/Week Comments No 0 (1 standard drink = 0.6 oz pur e alcohol) Comments No Sex and Gender Information Value Date Recorded Sex Assigned at Not on file Legal Sex Female 9:12 AM ROTARY OPERATOR Gender Identity Not on file Sexual [...] on stairs Contact your local community or [facility] for information on exercise, fall prevention programs, or options for improving home safety. documented as of this encounter Visit Diagnoses Not on filedocumented in this encounter Additional Health Concerns Infection Onset Date Last Indicated Resolved Time COVID: Suspected 11/24/2022 11/25/2022 11/25/2022 3:28 AM CDT documented as of this encounter Care Teams Assistant Press Operator Offset Relationship Specialty Start Date End Date Vasquez Ashley MD [address] [facility] [address] [place] [address] PCP - General 11/05/16 09/30/24 [place] [address] [facility] 70 [place] [address] PCP - General Internal Medicine 10/01/24 [place] [address] [facility] 70 [place] [address] Rheumatology 03/25/17 Ramses Rosa MD [address] [place] [address] Medical Oncology 03/25/17 09/02/20 [place] [address] [address] Nurse Practitioner Rheumatology 01/27/22 documented as of this encounter
--- OUTSIDE RECORDS SUMMARY | 2025-06-20 12:10 | XMS_ITS | Clinical Summary ---
Author Organization [facility] Address [address] [place] [address] Care Team Providers Care Specimen Transporter Name Role Phone Unavailable Primary Care Provider [...] 1 - Tdap) 12/31/1970 Mammogram Screening 1992 Pneumococcal Vaccine: 50+ Ye ars (1 of 1 - PCV) 12/31/2001 Zoster Vaccines (1 of 2) 12/31/2001 Dexa Scan (General) 12/31/2016 COVID-19 Vaccine (2024-2 6 season) 2025 Influenza Adult (#1) 2025 RSV Immunization or 60+ Years (1 - 1-dose 75+ series) 12/31/2026 Hepatitis A Vaccines Aged Out No long er eligible based on patient's age to complete this topic Meningococcal B Vaccine Aged Out No l onger eligible based on patient's age to complete this topic Meningococcal Vaccine Aged Out No dionicio fabien eligible based on patient's age to complete this topic RSV Immunizations Under 20 Months Aged Out No longer eligible based on patient's age to complete this topic
--- OUTSIDE RECORDS SUMMARY | 2025-06-20 12:10 | XMS_ITS | Encounter Summary ---
Author Organization [facility] Healthcare Address [address] [place] [address] Care Team Providers Care Housekeeping Laundry Worker Name Role Phone Vasquez Ashley MD Primary Care Provider [phone] Clarice Fleming MD Unavailable Ramses Rosa MD Unavailable [phone] Mary Verdugo NP Unavailable + Hamlet Hale DO Primary Care Provider [phone] Encounter Details Date Type Department Care Team (Late st Contact Info) Description 04/24/2019 Telephone [facility] Center at 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 RN Has trouble stepping up onto a curb Yes 04/25/2019 9:21 AM Margarita Scott V. RN Advised to use a cane or walker to get around safely Yes 04/25/2019 9:21 AM Belkys Chino V. RN Often has to lion to the toilet No 04/25/2019 9:21 AM Margarita Scott V. RN Feels unsteady when walking Yes 04/25/2019 9: 21 AM Belkys Scott V. RN Has lost some feeling in feet No 04/25/2019 9:21 AM Belkys Scott V. RN Steadies self on furniture while walking at home Yes 04/25/2019 9:21 AM Melissa Scott RN Takes medicine that makes him/her feel lightheaded or more tired than usual No 04/25/2019 9:21 AM Melissa Scott RN Worried about falling Yes 04/25/2019 9:21 AM Belkys Scott RN Takes medicine to sleep or improve mood No 04/25/2019 9:21 AM Margarita Scott V. RN Needs to push with hands whe n rising from a chair Yes 04/25/2019 9:21 AM Margarita Scott RN Often feels sad or depressed No 04/25/2019 9 :21 AM Belkys Scott RN * [place] Fall Risk Question Answer Date of Assessment Author History of Falling 0 04/25/2019 10:21 AM Lyla Burch RN Secondary Diagnosis 0 04/25/2019 10:21 AM Lyla Bocanegra RN Ambulatory Aids 15 04/25/2019 10:21 AM Lyla Burciaga RN Intravenous Therapy/Heparin/ Saline Lock 0 04/25/2019 10:21 AM Lyla Mittal RN Gait/Transferring 0 04/25/2019 10:21 AM Lyla Mittal RN Mental Status 0 04/25/2019 10:21 AM Lyla Camacho RN * Fall Risk Interventions Question Answer Date of Assessment Author All Low Fall Interventions Applied Yes 2018 10:21 AM Lyla Mittal RN * Fall Risk Interventions Question Answer Date of Assessment Author All Low Fall Interventions Applied Yes 2018 10:21 AM Lyla Mittal RN documented as of this encounter Plan of [...] documented as of this encounter Care Teams Housekeeping Laundry Worker Relationship Specialty Start Date End Date Vasquez Ashley MD [address] [facility] [address] [address] PCP - General 11/05/16 09/30/24 [place] [address] [address] PCP - General Internal Medicine 10/01/24 [place] [address] [address] Rheumatology 03/25/17 Ramses Rosa MD [address] [place] [address] Medical Oncology 03/25/17 09/02/20 [place] [address] [address] Nurse Practitioner Rheumatology 01/27/22 documented as of this encounter
--- OUTSIDE RECORDS SUMMARY | 2025-06-20 12:10 | XMS_ITS | Encounter Summary ---
Author Organization [facility] Healthcare Address [address] [place] [address] Care Team Providers Care Traffic Line Painter Name Role Phone Vasquez Ashley MD Primary Care Provider [phone]- [phone] Clarice Fleming MD Unavailable Ramses Rosa MD Unavailable [phone] Mary Verdugo NP Unavailable + Hamlet Hale DO Primary Care Provider [phone] Encounter Details Date Type Department Care Team (Late st Contact Info) Description 01/12/2019 Telephone [facility] at [facility] [address] [facility] [address] [place], [place] [id number] Amanda Brady MD [address] [facility] [place] [address] Social History Tobacco Use Types Packs/Day Years Used Date Smoking Tobacco: Never Smokeless Tobacco: Never Alcohol Use Standard Drinks/Week Comments No 0 (1 standard drink = 0.6 oz pur e alcohol) Comments No Sex and Gender Information Value Date Recorded Sex Assigned at Not on file Legal Sex Female 9:12 AM TITLE LAWYER Gender Identity Not on file Sexual Orientation [...] stairs Contact your local community or [facility] for information on exercise, fall prevention programs, or options for improving home safety. documented as of this encounter Visit Diagnoses Not on filedocumented in this encounter Additional Health Concerns Infection Onset Date Last Indicated Resolved Time COVID: Suspected 11/24/2022 11/25/2022 11/25/2022 3:28 AM CDT documented as of this encounter Care Teams Traffic Line Painter Relationship Specialty Start Date End Date Vasquez sAhley MD [address] [facility] [address] [place] [address] PCP - General 11/05/16 09/30/24 [place] [address] [facility] [address] [place] [address] PCP - General Internal Medicine 10/01/24 [place] [address] [facility] [address] [place] [address] Rheumatology 03/25/17 Ramses Rosa MD [address] [place] [address] Medical Oncology 03/25/17 09/02/20 [place] [address] [address] Nurse Practitioner Rheumatology 01/27/22 documented as of this encounter
--- OUTSIDE RECORDS SUMMARY | 2025-06-20 12:11 | XMS_ITS | Clinical Summary ---
Author Organization [employer] [address] [place] [address] Address [address] [place] [address] Care Team Providers Care Electrician Ship Name Role Phone Hamlet Hale Primary Care Provider [phone] Allergies Active Allergy Reactions Criticality Noted Date [...] by mouth daily with breakfast. 3 Active hydroCHLOROthiaz trip 50 mg tablet Take 50 mg by mouth daily. 3 Active gemfibrozil (LOPID) 600 mg tablet Take 600 mg by mouth 2 times daily. 5 Active betamethasone dipropionate (DIPROSONE) 0.05 % Ointment Apply to affected area 2 times daily. Vaginal itching 3 9 Active pantoprazole (PROTONIX) 40 mg Tablet, Delayed Release (E.C.) Take 40 mg by mouth 2 times daily. Active traMADol (ULTRAM) 50 mg tabletIndication s:Other spondylosis with radiculopathy, lumbar region Take 1 Tablet (50 mg) by mouth every 12 hours as needed for Pain. 14 Tablet 9 Active HYDROcodone-acet aminophen (NORCO) 5-325 mg tabletIndication s:Inflammation of both sacroiliac joints Take 1 Tablet by mouth every 4 hours as needed for Pain. Max Daily Amount: 6 Tablets 40 Tablet 07/13/2019 11:28 AM MEDICAL SCIENTIFIC OFFICER 9 Active diphenhydrAMINE (BENADRYL) 25 mg capsule Take 1 Capsule (25 mg) by mouth every 4 hours as needed for Allergies. 9 Active hydroxychloroqui ne (PLAQUENIL) 200 mg tablet Take 200 mg [...] Take 5 mg by mouth daily. Active metoprolol tartrate (LOPRESSOR) 25 mg tablet Take 1.5 Tablets (37.5 mg) by mouth 2 times daily. 270 Tablet 3 5 Active Additional Information Patient taking differently: 25 mgOral TWO TIMES DAILY, Reported on 05/06/2025 Active Problems Problem Noted Date Diagnosed Date Dizziness 05/06/2025 Palpitations 01/14/2025 Other chest pain 11/19/2024 Vertebral artery stenosis, asymptomatic, left Stenosis of [...] Encounters Date Type Department Care Team Description 05/06/2025 10:30 AM CDT Office Visit [facility] [address] [place] [id number] Marcelino Oconnell MD PSVT (paroxysmal supraventricular tachycardia) (Primary Dx); Dizziness; Other chest pain; Benign hypertension; Palpitations; Mixed hyperlipidemia; Vertebral artery stenosis, asymptomatic, left; Bilateral carotid artery stenosis 03/25/2025 Telephone [facility] - [address] [place] [address] Marcelino Oconnell MD Patient Communuication from Last 3 Months Family History Medical [...] Sign Reading Time Taken Comments Blood Pressure 126/72 05/06/2025 10:31 AM CDT Pulse 70 05/06/2025 10:31 AM CDT Temperature 37.3 C (99.2 F) 07/13/2019 7:51 AM MEDICAL SCIENTIFIC OFFICER Respiratory Rate 14 07/13/2019 7:51 AM MEDICAL SCIENTIFIC OFFICER Oxygen Saturation 97% 05/06/2025 10:31 AM CDT Inhaled Oxygen Concentration - - Weight 86.2 kg (190 lb) 05/06/2025 10:31 AM CDT Height 157.5 cm (5' 2) 05/06/2025 10:31 AM CDT Body Mass Index 34.75 05/06/2025 10:31 AM CDT Plan of Treatment Upcoming Encounters Date Type Department Care Team (Late st Contact Info) Description 11/04/2025 10:00 AM CDT Office Visit [facility] [address] [place] [address] Marcelino Oconnell MD [address] [address] Health Maintenance Due Date Last Done Comments DTAP/TDAP/TD VACCINES (1 - Tdap) 12/31/1970 PNEUMOCOCCAL VACCINE 50+ YEA RS (1 of 2 - PCV) 12/31/1970 ZOSTER VACCINE (1 of 2) 12/31/1970 FIT-DNA Q 3 years 12/31/1996 FIT/FOBT Q 1 year 12/31/1996 Flex Sig/CT Colonography Q 5 years 12/31/1996 RSV VACCINE (60+ or ) (1 - Risk 50-74 years 1-dose series) 12/31/2001 INFLUENZA VACCINE (#1) 2025 06/05/2014 BREAST CANCER SCREENING 11/21/2025 11/22/19 25, 11/21/2024, 11/21/2024, Additional history exists OSTEOPOROSIS SCREENING 11/12/2026 2, 11/12/2021, 08/05/2017 COLORECTAL SCREENING 05/12/2031 05/12/2021, 05/12/20 21 Colorectal Cancer Screening 05/12/2031 Medical Devices Implanted Type Area Storm Door Maker Device Identifier Shelf Expiration Date Model / Serial / Lot Hemostatic Surgiflo 8ml W/Thrombin [id number] - [id number] Implanted:Qty: 1 on 07/12/2019 by Joe Dewitt MD at [facility] Right: Spine Lumbar [employer] 06/07/2020 [id number] / / [id number] Insurance MEDICARE PART A AND B [facility] Medicare Part D BCBS SUPP Advance Directives For more information, please contact: [phone] * Full Code (Latest Code Status on File) Date Activated Date Inactivated Comments 07/12/2019 3:08 PM 07/13/2019 3:12 PM Care Teams Electrician Ship Relationship Specialty Start Date End Date Hamlet Hael DO [address] [facility] [address] [place] [address] PCP - General Internal Medicine 11/19/24
--- OUTSIDE RECORDS SUMMARY | 2025-06-20 12:11 | XMS_ITS | Encounter Summary ---
Author Organization [facility] Healthcare Address [address] [place] [address] Care Team Providers Care Supervisor Salvage Name Role Phone Vasquez Ashley MD Primary Care Provider [phone]- [phone] Clarice Fleming MD Unavailable Ramses Rosa MD Unavailable [phone] Mary Verdugo NP Unavailable + Hamlet Hale DO Primary Care Provider [phone] Encounter Details Date Type Department Care Team (Late st Contact Info) Description 11/03/2018 Telephone [facility] [address] [facility] [address] [place], [place] [id number] Amanda Brady MD [address] [facility] [place] [address] Social History Tobacco Use Types Packs/Day Years Used Date Smoking Tobacco: Never Smokeless Tobacco: Never Alcohol Use Standard Drinks/Week Comments No 0 (1 standard drink = 0.6 oz pur e alcohol) Comments No Sex and Gender Information Value Date Recorded Sex Assigned at Not on file Legal Sex Female 9:12 AM EMERGENCY ROOM PHYSICIAN Gender Identity Not on file Sexual Orientation Not on file documented as of this encounter Functional Status * In the past year, patient experienced: Question Answer Date of Assessment Author One or more falls in the t year No 11/06/2018 8:35 AM Ximena Hadley RN Has trouble stepping up onto a curb No 11/06/2018 8:35 AM Ximena Hadley RN Advised to use a cane or walker to get around safely Yes 11/06/2018 8:35 AM Ximena Hadley RN Often has to lion to the toilet No 11/06/2018 8:35 AM Ximena Hadley RN Feels unsteady when walking No 11/06/2018 8: 35 AM Ximena Hadley RN Has lost some feeling in feet No 11/06/2018 8:35 AM Ximena Hadley RN Steadies self on furniture while walking at home No 11/06/2018 8:35 AM Ximena Hadley RN Takes medicine that makes him/her feel lightheaded or more tired than usual Yes 11/06/2018 8:35 AM Ximena Hadley RN Worried about falling Yes 11/06/2018 8:35 AM Ximena Hadley RN Takes medicine to sleep or improve mood No 11/06/2018 8:35 AM Ximena Hadley RN Needs to push with hands whe n rising from a chair No 11/06/2018 8:35 AM Ximena Hadley RN Often feels sad or depressed No 11/06/2018 8 :35 AM Ximena Hadley RN * [place] Fall Risk Question Answer Date of Assessment Author History of Falling 0 11/06/2018 9:00 AM Aretha Buckley RN Secondary Diagnosis 0 11/06/2018 9:00 AM Aretha Petersen, aerospace medicine physician Aids 0 11/06/2018 9:00 AM Aretha Blanco RN Intravenous Therapy/Heparin/ Saline Lock 0 11/06/2018 9:00 AM Aretha Buckley, RN Gait/Transferring 0 11/06/2018 9:00 AM Aretha Buckley RN Mental Status 0 11/06/2018 9:00 AM CDT Aretha Marie, MAHENDRA * BP Location Answer Date of Assessment Author Left arm 11/06/2018 8:22 AM CDT Ximena Greene RN * Fall Risk Interventions Question Answer Date of Assessment Author All Low Fall Interventions Applied Yes 2018 9:00 AM ROSALIET Aretha Urbina, MAHENDRA * BP Location Answer Date of Assessment Author Left arm 11/06/2018 8:22 AM CDT Ximena Greene RN * Fall Risk Interventions Question Answer Date of Assessment Author All Low Fall Interventions Applied Yes 2018 9:00 AM ROSALIET Aretha Urbina RN documented as of this encounter Plan [...] the likelihood of falling Lifestyle No Chelsi Calvo RN Note: Below are four things you [...] as of this encounter Care Teams Supervisor Salvage Relationship Specialty Start Date End Date Vasquez Ashley MD [address] [facility] [address] [place] [address] PCP - General 11/05/16 09/30/24 [place] [address] [facility] [address] [place] [address] PCP - General Internal Medicine 10/01/24 [place] [address] [facility] [address] [place] [address] Rheumatology 03/25/17 Ramses Rosa MD [address] [place] [address] Medical Oncology 03/25/17 09/02/20 [place] [address] [address] Nurse Practitioner Rheumatology 01/27/22 documented as of this encounter
--- OUTSIDE RECORDS SUMMARY | 2025-06-20 12:11 | XMS_ITS | Clinical Summary ---
Author Organization [facility] Address [address] [id number] Care Team Providers Care Scientific Recruiter Name Role Phone Clarice Fleming MD Unavailable Mary Verdugo NP Unavailable + Hamlet Hale DO Primary Care Provider [phone] Allergies Active Allergy Reactions Criticality Noted Date [...] , Motrin/Ibuprofen/ Advil/ Naproxen - Mouth swelling/itching Iodinated Contrast Media Hives Medium 11/21/2024 Levofloxacin Palpitations 11/21/2012 Muscle spasms Reaction: heart [...] chest Tolmetin Itching,Swelling High 11/21/2012 Swelling/itching Medications hydroCHLOROthi azide (HYDRODIURIL) 50 mg tablet take 1 tablet (50MG) by oral route every day 0 3 Active montelukast (SINGULAIR) 10 mg tablet take 1 tablet (10MG) by oral route every day in the evening 0 3 Active potassium chloride ER (KLOR-CON 10) 10 mEq CR tablet take 1 tab po qd 0 3 Active vitamin B complex capsule Take 1 tablet by mouth Active magnesium amino acid chelate (MAGONATE) 27 mg tabletIndicati ons:hypomagnes emia Take 1 tablet (27 mg of elemental magnesium total) by mouth Active cyanocobalamin (Vitamin B-12) 100 mcg tabletIndicati ons:Prevention of Vitamin B12 Deficiency Active gemfibrozil (LOPID) 600 mg tablet Active hydroxychloroq uine (PLAQUENIL) 200 mg tablet Take 1 tablet (200 mg total) by mouth 2 (two) times a day Active traMADol (ULTRAM) 50 mg tablet TAKE 1 TABLET EVERY 12 HOURS NEEDED. Active tiZANidine (ZANAFLEX) 4 mg tabletIndicati ons:Muscle Spasm Take 1 tablet (4 mg total) by mouth every 8 (eight) hours as needed for muscle spasms [address] (PROTONIX) 40 mg EC tabletIndicati ons:Laryngopha ryngeal reflux TAKE 1 TABLET(40 MG) BY MOUTH TWICE DAILY 60 tablet 3 0 Active mecobal/levome folat Ca/B6 phos (METANX ORAL) Take by mouth [...] Take 1 capsule by mouth daily Active aspirin (Adult Low Dose Aspirin) 81 mg enteric coated tablet Take 1 tablet (81 mg total) by mouth daily [address] (CYMBALTA) 20 mg capsule Take 1 capsule (20 mg total) by mouth daily Active fluticasone propionate (FLONASE) 50 mcg/actuation nasal sprayIndicatio ns:Allergic Rhinitis Administer 1 spray into each nostril daily Active lisinopriL (PRINIVIL,ZEST RIL) 5 mg tablet Take 1 tablet (5 mg total) by mouth daily 30 tablet 4 Active fluticasone propion-salmet Chencho (ADVAIR DISKUS) 100-50 mcg/dose diskus inhaler Inhale 2 puffs 25 Discontinu ed(Alterna te therapy) FeroSuL 325 mg (65 mg iron) tablet Take 1 tablet (325 mg total) by mouth daily 3 05/27/20 25 Discontinu ed(Therapy completed) escitalopram (LEXAPRO) 10 mg tablet Take 1 tablet (10 mg total) by mouth daily 05/27/20 25 Discontinu ed(Therapy completed) Active Problems Problem Noted Date Diagnosed Date [...] testing. Benign hypertension 03/28/2024 Assessment & Plan (05/29/2025 9:49 AM CDT): Stable continue hydrochlorothiazide Assessment & Plan (06/04/2024 1:59 PM CDT): Stable continue lisinopril Stenosis of carotid artery 03/28/2024 Assessment & Plan (05/29/2025 9:49 AM CDT): Asymptomatic moderate 50-69% stenosis of bilateral internal carotid arteries. Continue risk factor modification with ASA statin therapy good blood pressure control. Follow up in 1 year with repeat carotid duplex Lichen sclerosus et atrophicus of the vulva 02/05 Vertebral artery stenosis, asymptomatic, left History of lumpectomy of right breast 11/04/2022 PSVT (paroxysmal supraventricular tachycardia) 1 09/09/2021 Mixed hyperlipidemia 07/09/2022 Assessment & Plan (05/29/2025 9:49 AM CDT): Recommend statin therapy Assessment & Plan (06/04/2024 1:59 PM CDT): [...] 08/25/2017 Assessment & Plan (08/25/2017 9:09 AM DRIER TENDER NAPHTHALENE): She is allergic to [place] and thus [...] 08/25/2017 Assessment & Plan (08/25/2017 9:15 AM DRIER TENDER NAPHTHALENE): Since her last visit she slipped in [...] today. Assessment & Plan (08/25/2017 9:04 AM DRIER TENDER NAPHTHALENE): Will continue to monitor blood work Scabies [...] and reaching remission. She will contact her impregnator and drier and oncologist in regards to their level [...] PA-C Assessment & Plan (08/25/2017 9:23 AM DRIER TENDER NAPHTHALENE): She is currently having a flare of [...] Encounters Date Type Department Care Team Description 05/30/2025 Orders Only [facility] Vascular at [address] [place] [phone] He Avalos MD Bilateral carotid artery stenosis (Primary Dx) 05/29/2025 9:15 AM CDT Office Visit [facility] at [address] [place] [phone] He Avalos MD Bilateral carotid artery stenosis (Primary Dx); Mixed hyperlipidemia; Benign hypertension 05/27/2025 9:30 AM CDT - 05/27/2025 10:00 AM CDT Surgery [facility] [address] [place] [phone] Scout Lyon MD ESOPHAGOGASTRODUODENOSCOPY ULTRASOUND EXAM LIMITED 05/27/2025 9:23 AM CDT Anesthesia Event [facility] [address] [place] [address] [place] [phone] Manuel Smart MD Nichoalds, Demitra Marie, CRNA 05/27/2025 8:24 AM CDT - 05/27/2025 10:49 AM CDT Hospital Encounter [facility] [place] [address] Scuot Lyon MD RUQ abdominal pain Discharge Disposition: Discharge to home or self care 05/21/2025 9:00 AM CDT Ancillary Procedure [facility] Vascular and Vein Surgery at [address] [place] [address] Bilateral carotid artery stenosis from Last 3 Months Immunizations Immunization Administration [...] BACK SURGERY 07/12/2019 L4-L5 spinal fusion at [facility] EITAN FUNDOPLICATION SUPERFICIAL LYMPH NODE BIOPS Y / EXCISION COLONOSCOPY POLYPECTOMY UPPER GASTROINTESTINAL ENDOSCOPY Medical History Medical History Date Comments Hypertension hypertension Superficial basal cell carcinoma cancer Asthma asthma Anemia anemia Hx Other Medical tennis elbow Hx Other Medical trigger finger Hx Other Medical lymphademia Obesity Chronic pain Rheumatoid arthritis (HCC) Racing heart beat Delayed emergence from general anesthesia Diverticulosis Diverticulitis LEWIS (nonalcoholic steatohepatitis) GERD (gastroesophageal reflux disease) Colon polyp Breast cancer (HCC) Hypothyroidism Urinary tract infection Cataract Family History Medical History Relation Name Comments [...] making you feel afraid or unsafe? 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 [employer] Not on file Not on f ile Not on file Last Filed Vital Signs Vital Sign Reading Time Taken Comments Blood Pressure 156/65 05/29/2025 9:38 AM CDT Pulse 82 05/29/2025 9:38 AM CDT Temperature 36.6 C (97.8 F) 05/27/2025 9:07 AM CDT Respiratory Rate 16 05/27/2025 10:10 AM CDT Oxygen Saturation 94% 05/29/2025 9:38 AM CDT Inhaled Oxygen Concentration - - Weight 83 kg (183 lb) 05/29/2025 9:38 AM CDT Height 157.5 cm (5' 2) 05/29/2025 9:38 AM CDT Body Mass Index 33.47 05/29/2025 9:38 AM CDT Plan of Treatment Health Maintenance Due Date Last Done Comments Colon Cancer Screening-Colonoscopy 1950 Depression Screening 1950 Hepatitis C Screening 1950 Well Visit 65+ 12/31/2016 Pneumococcal vaccine 65+ (2 of 2 - PCV) 12/23/2017 12/23/2016 Osteoporosis Screening-Bone Density Scan 11/13/2023 11/12/2021, 08/05/2017 Influenza Vaccine (#1) 2025 7, 06/05/2014, 08/08/2013 Breast Cancer Screening-Mammogram 11/21/2025 11/21/2024, 11/08/2023, 11/03/2022, Additional history exists Fall Risk Assessment 05/27/2026 05/27/2025, 05/01/2019, 04/25/2019, Additional history exists DTaP/Tdap/Td Vaccine (2 - Td or Tdap) 12/23/2026 12/23/2016 Zoster Vaccine Completed 12/09/2023, 09/05/2023 Goals Goal Patient Goal Type Associated Problems [...] Procedure Name Priority Date/Time Associated Diagnosis Comments US ENDOSCOPIC IP Routine 05/27/2025 9:52 AM CDT RUQ abdominal pain ESOPHAGOGASTRODUODENOSCOPY ULTRASOUND EXAM LIMITED 05/27/2025 9:23 AM CDT RUQ abdominal pain UPPER EUS 05/27/2025 9:19 AM CDT US CAROTIDS DUPLEX BILATERAL Schedule Routine, Read Routine (OP Routine) 05/21/2025 9:23 AM CDT Bilateral carotid artery stenosis SCREENING MAMMOGRAM BILATERA L W EUSEBIO Schedule Routine, Read Routine (OP Routine) 11/21/2024 10:44 AM CDT Malignant neoplasm of female breast, unspecified estrogen receptor status, unspecified laterality, unspecified site of breast (HCC) DEXA AXIAL SKELETON BONE DENSITY 1 OR MORE SITES Schedule Routine, Read Routine (OP Routine) 11/12/2021 2:58 PM CDT Malignant neoplasm of female breast, unspecified estrogen receptor status, unspecified laterality, unspecified site of breast (HCC) Postmenopausal from Last 3 Months or Most Recently Relevant to Health Maintenance Results * Upper EUS (05/27/2025 9:19 AM CDT) Anatomical Region Laterality Modality Other Narrative Procedure Note Scout Lyon MD - 05/27/2025 9:19 AM CDT ENDOSCOPY LAB Patient Name: Norma Layton Procedure Date: 05/27/2025 9:19 AM Admit Type: Outpatient Room: [facility] Date of : 1950 Instrument Name: LAUREN,[id number] Gender: Female Note Status: Finalized Procedure: Upper EUS Indications: Abdominal pain in the right upper quadrant, h/o duodenal carcinoid s/p EMR in 2014, h/o LEWIS with advanced fibrosis Providers: Scout Lyon M.D. Referring MD: Hamlet Hale D.O. Medicines: Monitored Anesthesia Care Complications: No immediate complications. Estimated blood loss: Minimal. Estimated Blood Loss: Estimated blood loss was minimal. Procedure: The risks, benefits and alternatives were discussed and informed consent was obtained.The Endosonoscope was introduced through the mouth, and advanced tothe third part of duodenum The Endoscope was introduced through the mouth, and advanced to the second partof duodenum The upper EUS was accomplished without difficulty. The patient tolerated the procedurewell. Findings: ENDOSCOPIC FINDING: : LA Grade A (one or more mucosal breaks less than 5 mm, not extending between tops of 2 mucosal folds) esophagitis with no bleeding wasfound 34 to 35 cm from the incisors. Evidence of a Eitan fundoplication was found in the lower third ofthe esophagus. The wrap appeared intact. This was traversed. The entire examined stomach was normal. The examined duodenum was normal. ENDOSONOGRAPHIC FINDING: : The region of the celiac plexus and celiac ganglia was visualized and showed no sign of significant endosonographic abnormality. Thevascular anatomy of the region was normal. Pancreatic parenchymal abnormalities were noted in the pancreaticbody and pancreatic tail. These consisted of atrophy. There was no sign of significant endosonographic abnormality in themain pancreatic duct. The pancreatic duct measured up to 2 mm in diameter. There was no evidence of chronic pancreatitis There was dilation in the common bile duct which measured up to 10mm. There was abnormal echogenicity in the left lobe of the liver and inthe right lobe of the liver. This area was hyperechoic. There was no sign of significant endosonographic abnormality in the ampulla. No pathologic lymphadenopathy and no masses wereidentified. Impression: - LA Grade A reflux esophagitis with no bleeding. There was no evidence of varices - A Eitan fundoplication was found. The wrapappears intact. - There was dilation in the common bile duct which measured up to 10 mm (due to papillary stenosis). - Fatty liver - No specimens collected. Recommendation: - Low fat diet. - Continue pantoprazole - Return to GI clinic in 1 year. - The findings and recommendations were discussedwith the patient and their family. Attending Participation: I personally performed the entire procedure. Electronically signed by Scout Lyon MD Scout Lyon M.D. 05/27/2025 9:53:46 AM This document was signed electronically. Number of Addenda: 0 Note Initiated On: 05/27/2025 9:19 AM Scope In: Scope Out: us Scout Lyon MD ENDOSCOPY PROCEDURES Final Re sult * US Carotids Duplex Bilateral (05/21/2025 9:23 AM CDT) Anatomical Region Laterality Modality Vascular Bilateral Ultrasound 05/21/2025 9:01 AM CDT Narrative 05/22/2025 9:49 AM CDT Vascular & Vein Surgery [address] [place] [address] Carotid Duplex Ultrasound Report Patient Name: NORMA LAYTON L : 1950 (75y 4m) Study Date: 05/21/2025 9:01:27 AM Sex: F Internet Marketing Consultant: YOEL Location: [facility] Ref Provider: HE AVALOS Quality: Adequate Order Provider: HE AVALOS PROCEDURES: Carotid Report: Carotid duplex examination of the extracranial arteries was performed using 2D, color and spectral Doppler. INDICATIONS: I65.23 Occlusion and stenosis of bilateral carotid arteries. HISTORY: HTN. Breast CA. COMPARISONS: No change compared to prior study. The previous exam was completed on 05/21/24: bilat 50-69. MEASUREMENTS: Right Value Left Value RT Prox CCA PSV 94 cm/sec LT Prox CCA PSV 92 cm/sec RT Prox CCA EDV 18 cm/sec LT Prox CCA EDV 16 cm/sec RT Distal CCA PSV 66 cm/sec LT Distal CCA PSV 82 cm/sec RT Distal CCA EDV 14 cm/sec LT Distal CCA EDV 13 cm/sec RT Prox ICA PSV 138 cm/sec Lt Bulb PSV 108 cm/sec RT Prox ICA EDV 16 cm/sec Lt Bulb EDV 20 cm/sec RT Mid ICA PSV 73 cm/sec LT Prox ICA PSV 126 cm/sec RT Mid ICA EDV 11 cm/sec LT Prox ICA EDV 17 cm/sec RT Distal ICA PSV 81 cm/sec LT Mid ICA PSV 86 cm/sec RT Distal ICA EDV 14 cm/sec LT Mid ICA EDV 17 cm/sec RT ECA Prx PSV 116 cm/sec LT Distal ICA PSV 96 cm/sec RT ICA/CCA 2.09 ratio LT Distal ICA EDV 19 cm/sec Rt Vert Dst PSV 59 cm/sec LT ECA Prx PSV 186 cm/sec LT ICA/CCA 1.54 ratio Lt Vert Dst PSV 71 cm/sec FINDINGS: Rt Common Carotid Artery: Duplex imaging of the right common carotid artery is within normal limits without evidence of atherosclerotic disease. Rt Internal Carotid Artery: The plaque in the right internal carotid artery appears to be heterogeneous and smooth. Significant atherosclerotic changes of the right internal carotid artery with elevated peak systolic velocity and end diastolic velocity, as above. 50-69% stenosis. Rt External Carotid Artery: Patent right external carotid artery with evidence of atherosclerotic disease present. Rt Vertebral Artery: The right vertebral artery is patent with antegrade flow. Lt Common Carotid Artery: Duplex imaging of the left common carotid artery is within normal limits without evidence of atherosclerotic disease. Lt Internal Carotid Artery: The plaque in the left internal carotid artery appears to be heterogeneous and smooth. Significant atherosclerotic changes of the left internal carotid artery with elevated peak systolic velocity and end diastolic velocity, as above. 50-69% stenosis. Lt External Carotid Artery: Patent left external carotid artery with evidence of atherosclerotic disease present. Lt Vertebral Artery: The left vertebral artery is patent with antegrade flow. Comments: Brachial artery systolic blood pressure is 146 on the right, 140 on the left. CONCLUSIONS: 1. The right internal carotid artery disease is consistent with moderate 50-69% stenosis. 2. The left internal carotid artery disease is consistent with moderate 50-69% stenosis. 3. Normal, antegrade flow is noted in bilateral vertebral arteries. ATTESTATION: I have reviewed and interpreted the pertinent images and measurements of this study. I attest to the conclusions in the final report that is provided above. Electronically Signed By: He Avalos MD 05/22/2025 9:10:12 AM CDT Procedure Note He Avalos MD - 05/22/2025 Vascular & Vein Surgery [address] [facility] [place] [place] [address] Carotid Duplex Ultrasound Report Patient Name: NORMA LAYTON L : 1950 (75y 4m) Study Date: 05/21/2025 9:01:27 AM Sex: F Internet Marketing Consultant: Location: [facility] Ref Provider: HE AVALOS Quality: Adequate Order Provider: HE AVALOS PROCEDURES: Carotid Report: Carotid duplex examination of the extracranial arterieswas performed using 2D, color and spectral Doppler. INDICATIONS: I65.23 Occlusion and stenosis of bilateral carotid arteries. HISTORY: HTN. Breast CA. COMPARISONS: No change compared to prior study. The previous exam was completed on05/21/24: bilat 50-69. MEASUREMENTS: Right Value Left Value RT Prox CCA PSV 94 cm/sec LT Prox CCA PSV 92 cm/sec RT Prox CCA EDV 18 cm/sec LT Prox CCA EDV 16 cm/sec RT Distal CCA PSV 66 cm/sec LT Distal CCA PSV 82 cm/sec RT Distal CCA EDV 14 cm/sec LT Distal CCA EDV 13 cm/sec RT Prox ICA PSV 138 cm/sec Lt Bulb PSV 108 cm/sec RT Prox ICA EDV 16 cm/sec Lt Bulb EDV 20 cm/sec RT Mid ICA PSV 73 cm/sec LT Prox ICA PSV 126 cm/sec RT Mid ICA EDV 11 cm/sec LT Prox ICA EDV 17 cm/sec RT Distal ICA PSV 81 cm/sec LT Mid ICA PSV 86 cm/sec RT Distal ICA EDV 14 cm/sec LT Mid ICA EDV 17 cm/sec RT ECA Prx PSV 116 cm/sec LT Distal ICA PSV 96 cm/sec RT ICA/CCA 2.09 ratio LT Distal ICA EDV 19 cm/sec Rt Vert Dst PSV 59 cm/sec LT ECA Prx PSV 186 cm/sec LT ICA/CCA 1.54 ratio Lt Vert Dst PSV 71 cm/sec FINDINGS: Rt Common Carotid Artery: Duplex imaging of the right common carotidartery is within normal limits without evidence of atherosclerotic disease. Rt Internal Carotid Artery: The plaque in the right internal carotidartery appears to be heterogeneous and smooth. Significant atherosclerotic changes of the rightinternal carotid artery with elevated peak systolic velocity and end diastolicvelocity, as above. 50-69% stenosis. Rt External Carotid Artery: Patent right external carotid artery withevidence of atherosclerotic disease present. Rt Vertebral Artery: The right vertebral artery is patent with antegradeflow. Lt Common Carotid Artery: Duplex imaging of the left common carotid arteryis within normal limits without evidence of atherosclerotic disease. Lt Internal Carotid Artery: The plaque in the left internal carotid arteryappears to be heterogeneous and smooth. Significant atherosclerotic changes of the leftinternal carotid artery with elevated peak systolic velocity and end diastolicvelocity, as above. 50-69% stenosis. Lt External Carotid Artery: Patent left external carotid artery withevidence of atherosclerotic disease present. Lt Vertebral Artery: The left vertebral artery is patent with antegradeflow. Comments: Brachial artery systolic blood pressure is 146 on the right, 140on the left. CONCLUSIONS: 1. The right internal carotid artery disease is consistent with [id number]% stenosis. 2. The left internal carotid artery disease is consistent with [id number]% stenosis. 3. Normal, antegrade flow is noted in bilateral vertebral arteries. ATTESTATION: I have reviewed and interpreted the pertinent images and measurements ofthis study. I attest to the conclusions in the final report that is provided above. Electronically Signed By: He Avalos MD 05/22/2025 9:10:12 AM CDT us He Avalos MD IM US PROCEDURES Final Result * Screening Mammogram Bilateral W Eusebio (11/21/2024 10:44 AM CDT) Anatomical Region Laterality Modality Breast Bilateral Mammography Addenda Addendum by Ester Geiger MD on 11/22/2024 10:40 AM CDT ADDENDED REPORT 11/22/2024 at 10:40:06 Addendum: Mammogram Findings: The breasts are heterogeneously dense, which may obscure small masses. There are right breast conservation therapy changes. Impression: There is no mammographic evidence of malignancy. Annual screening mammography is recommended. If supplemental screening is desired, breast MRI would be recommended in this patient with heterogeneously dense breasts. OVERALL FINAL ASSESSMENT: BI-RADS CATEGORY 1: Negative. THIS REPORT HAS BEEN ADDENDED Narrative 11/22/2024 10:39 AM CDT ORIGINAL REPORT Mammogram Technique: Bilateral Digital Breast Tomosynthesis, Bilateral C-view 2D Screening mammogram. Views obtained: bilateral craniocaudal and bilateral mediolateral oblique. Computer Aided Detection was performed. Mammogram Findings: The present examination has been compared to prior imaging studies performed at [facility] on 11/03/2022, 11/08/2023 and 12/01/2023. There are scattered areas of fibroglandular density. There is no suspicious abnormality in either breast. Impression: There is no mammographic evidence of malignancy. Annual screening mammography is recommended. OVERALL FINAL ASSESSMENT: BI-RADS CATEGORY 1: Negative. Procedure Note Ester Geiger MD - 11/22/2024 ORIGINAL REPORT Mammogram Technique: Bilateral Digital Breast Tomosynthesis, Bilateral C-view 2D Screening mammogram. Views obtained: bilateral craniocaudal and bilateral mediolateral oblique. Computer Aided Detection was performed. Mammogram Findings: The present examination has been compared to prior imaging studies performed at [facility] on 11/03/2022,11/08/2023 and 12/01/2023. There are scattered areas of fibroglandular density. There is no suspicious abnormality in either breast. Impression: There is no mammographic evidence of malignancy. Annual screening mammography is recommended. OVERALL FINAL ASSESSMENT: BI-RADS CATEGORY 1: Negative. Benita Fajardo DINKEY LOCOMOTIVE OPERATOR IMG MAMMO PROCEDURES Edited Res ult - [...] -2.0 is below the expected range for age. A Z-score below the expected range for age in a patient with recent fractures and/or chronic corticosteroid treatment is consistent with a diagnosis of osteoporosis. B) In post menopausal women and males over 50, comparison of the measured bone mineral density with the average value in young normal subjects (the T-score) has been found to be useful in [...] and agrees with it. Electronically signed by: Yeelna Recinos M.D. Narrative 11/12/2021 4:40 PM CDT [...] -2.0 is below the expected range for age. A Z-score below the expected range for age in a patient with recent fractures and/or chronic corticosteroid treatment is consistent with a diagnosis of osteoporosis. B) In post menopausal women and males over 50, comparison of the measured bone mineral density with the average value in young normal subjects (the T-score) has been found to be useful in [...] Recently Relevant to Health Maintenance Insurance MEDICARE [facility] MEDICARE SUPPLEMENT MEDICARE MEDICARE BLUE CROSS MEDICARE SUPPLEMENT Advance Directives For more information, please contact: [phone] * Full Code (Latest Code Status on File) Date Activated Date Inactivated Comments 05/27/2025 9:15 AM 05/27/2025 2:49 PM Care Teams Scientific Recruiter Relationship Specialty [place] [id number] [address] PCP - General Internal Medicine 10/01/24 [place] [id number] [address] Rheumatology 03/25/17 [place] [id number] [address] Nurse Practitioner Rheumatology 01/27/22
--- OUTSIDE RECORDS SUMMARY | 2025-06-20 12:11 | XMS_ITS | Clinical Summary ---
Author Organization [facility] Address [address] [place] [address] Care Team Providers Care Crusher Operator Name Role Phone Vasquez Ashley Primary Care Provider Thong Grant MD Unavailable [phone] Clarice Fleming MD Unavailable Source Comments [facility],non-owned Affiliates and Associated Physician Practices is amultiple site organization consisting of ambulatory clinics and hospital sitesin [place], [place], [place] and [place]. This disclosure is being madepursuant to the Care Everywhere program and may not contain all information available regarding this patient. Last updated 18.[facility] Allergies Active Allergy Reactions Criticality [...] document. Alwaysverify current medications with the patient. quinapril (ACCUPRIL) 10 MG tablet Take 1 (one) tablet by mouth once daily Active montelukast (SINGULAIR) 10 MG tablet Take 1 (one) tablet by mouth once daily Active potassium chloride (KLOR-CON) 10 MEQ tablet Take 1 (one) tablet by mouth once daily Reported on 07/22/2016 Active hydrochlorothia zide (HYDRODIURIL) 50 MG tablet Take 1 (one) tablet by mouth once daily Active metoprolol tartrate IR (LOPRESSOR) 25 MG tablet Take 1 (one) tablet by mouth once daily Active tiZANidine (ZANAFLEX) 4 MG tablet TK 1 T PO TID prn 2 6 Active B Complex Vitamins (VITAMIN-B COMPLEX PO) Take 1 tablet by mouth once daily Active Magnesium Gluconate (MAGNESIUM 27 PO) Take 1 tablet by mouth once daily Active Fluticasone-Rod meterol (ADVAIR DISKUS IN) Inhale 2 puffs by mouth as needed Active GEMFIBROZIL PO Take 600 mg by mouth 2 times daily after meals Active hydroxychloroqu ine (PLAQUENIL) 200 MG tabletIndicatio ns:Rheumatoid Arthritis Take 1 (one) tablet by mouth 2 times daily Reasons: Rheumatoid Arthritis Active diclofenac sodium (PENNSAID) 1.5 % topical solution Apply 40 (forty) drops to affected area 4 times daily Active traMADol (ULTRAM) 25 MG TABS tablet Take by mouth every 6 hours as needed Active methenamine hippurate (Hiprex) 1 GM tabletIndicatio ns:Recurrent UTI Take 1 (one) tablet by mouth 2 times daily 180 tablet 3 4 Active triamcinolone acetonide (Kenalog) 0.5 % ointmentIndicat ions:Lichen sclerosus et atrophicus of the vulva Apply to affected area 3 times daily 45 g 3 4 Active Active Problems Problem Noted Date Diagnosed [...] Recorded Patient Health Questionnaire-2 Score 1 05/13/2023 Comments No Sex and Gender Information Value Date Recorded Sex Assigned at Not on file Legal Sex Female 5:10 AM QUALITY ASSURANCE QA LAB TECHNICIAN Gender Identity Not on file Sexual Orientation Not on file Last Filed Vital Signs Vital Sign Reading Time Taken Comments Blood Pressure 126/60 11/19/2024 1:45 PM CDT Pulse 71 08/31/2017 11:55 AM QUALITY ASSURANCE QA LAB TECHNICIAN Temperature 36.6 C (97.9 F) 08/31/2017 12:07 PM QUALITY ASSURANCE QA LAB TECHNICIAN Respiratory Rate 12 08/31/2017 11:55 AM QUALITY ASSURANCE QA LAB TECHNICIAN Oxygen Saturation 98% 08/31/2017 12:33 PM QUALITY ASSURANCE QA LAB TECHNICIAN Inhaled Oxygen Concentration - - Weight 90.7 kg (200 lb) 11/19/2024 1:45 PM CDT Height 157.5 cm (5' 2) 11/19/2024 1:45 PM CDT Body Mass Index 36.58 11/19/2024 1:45 PM CDT Plan of Treatment Upcoming Encounters Date Type Department Care Team (Late st Contact Info) Description 08/05/2025 10:20 AM QUALITY ASSURANCE QA LAB TECHNICIAN Office Visit [facility] - [facility] STRIPPER [address] [place] [address], [address] [place] [address] Thong Grant MD [address] [place] [address] [address] [place] [address] Health Maintenance Due Date Last Done Comments COLOGUARD (AGES 45-75) - COLON CA SCREENING 1950 CT COLONOGRAPHY - COLON CA SCREENING [...] - Risk 60-74 years 1-dose series) 2012 DEPRESSION SCREENING 08/08/2024 05/13/2023 MAMMOGRAM 11/07/2024 11/08/2023, 04/0 09/2023, 11/03/2022, Additional history exists COVID-19 VACCINE (2 - season) 2025 10/13/2020 INFLUENZA VACCINE (#1) 2025 06/05/2014 COLON MONITORING 07/14/2027 07/14/2017, , 07/26/2014 COLONOSCOPY - COLON CA SCREENING 07/14/2027 07/14/2017, [...] this topic Medical Devices Implanted Type Area Caption Writer Device Identifier Shelf Expiration Date Model / Serial / Lot Syr Inj Coaptite 1cc Implanted:Qty: 1 on 11/22/2012 by [facility] [employer] 07/07/2015 [id number] / / [id number] Syr Inj Coaptite 1cc Implanted:Qty: 1 on 11/22/2012 by Thong Grant MD at [facility] [employer] 04/06/2015 [id number] / / [id number] Procedures Procedure Name Priority Date/Time Associated Diagnosis Comments MAMMOGRAM 11/03/2022 from Last 3 Months or Most Recently Relevant to Health Maintenance Results * MAMMOGRAM (11/03/2022) Anatomical Region Laterality Modality Other 11/03/2022 Narrative 11/03/2022 Ordered by an unspecified provider. us Scanned Document SCANNING ONLY Final Result from Last 3 Months or Most Recently Relevant to Health Maintenance Insurance MEDICARE [facility] Advance Directives * FULL RESUSCITATION (Latest Code Status on File) Date Activated Date Inactivated Comments 11/22/2012 11:32 AM 11/22/2012 8:49 PM Care Teams Crusher Operator Relationship Specialty Start Date End Date Vasquez Ashley DO [address] [facility] [address] [phone] PCP - General Internal Medicine 11/17/12 Thong Grant MD [address] [place] [phone] Customer Complaint Clerk Obstetrics and Gynecology 07/16/16 Clarice Fleming MD [address] [place] [address] Liquor Gallery Operator Rheumatology 07/21/17
--- OUTSIDE RECORDS SUMMARY | 2025-06-20 12:11 | XMS_ITS ---
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 Assessment & Plan (08/25/2017 9:04 AM LEAD WELDER): Will continue to monitor blood work Scabies [...] and reaching remission. She will contact her car repairman and oncologist in regards to their level [...] PA-C Assessment & Plan (08/25/2017 9:23 AM LEAD WELDER): She is currently having a flare of [...]
--- OUTSIDE RECORDS SUMMARY | 2025-06-20 12:11 | XMS_ITS | Data Portability ---
Author Organization [facility],, Romelia kim Address [address] [place] [address] Assessment No assessment recorded. Plan of Treatment Reminders Order Date Submit Date Provider Last Modified By Organization Details Last Modified Time Details Appointments None recorded. Lab allergy test, skin 023 023 [facility], [address], [address], [place], [address], 3 13:00:34 allergy test, skin 017 017 [facility], [address], [address], [place], [address], 7 18:33:00 Referral None recorded. Procedures None recorded. Surgeries None recorded. Imaging None recorded. Medication Orders None recorded. Patient TargetsNo targets recorded. Patient Instructions Encounter Date Encounter Id Patient Instructions Last Modified By Organization Details Last Modified Time 08/05/2017 [id number] drug allergy: care instructions [email or web address] Not available 08/05/2017 14:44:05 10/01/2022 [id number] drug allergy: care instructions [email or web address] Not available 10/01/2022 16:32:42 Reason for Referral None Reported. Results Created Date Observation Date Name Description Value Unit Range Abnormal Flag Note LastModifiedBy Organization Detail LastModifiedTime Result Notes None recorded. Problems Name Problem SNOMED Code Status Onset Date Resolution Date Notes Provider Name and Address Organization Details Recorded Time Rheumatoid arthritis 86956827 Active 2016 Indra perez MD [address], [place], [address] [facility], 7 14:40:13 Hypertensive disorder 93028314 Active [address], [place], [address], [place] [facility], 7 14:42:48 Allergy to drug 015037899 Active [address], [place], [address], [place] [facility], 14:44:01 Problem Notes None recorded. Medical Equipment None Reported. Allergies Allergen ID Allergen Name Allergen Category Reaction Reaction Severity Criticality Documentation Date Start Date Code Code System Note Provider Name and Address Organization Details Recorded Time 21400 Altace medicatio n Not available Not available Not available 08/05/2017 58358 8 RxNorm greg middendor f null, [place] [facility], 14:30:19 64095 aspirin medicatio n Not available Not available Not available 08/05/2017 1191 RxNorm greg middendor f null, [place] [facility], 14:30:38 54904 Acetamino phen / Propoxyph junior medicatio n Not available Not available Not available 08/05/2017 70222 RxNorm greg middendor f null, [place] [facility], 14:30:51 26555 Daypro medicatio n Not available Not available Not available 08/05/2017 95673 1 RxNorm greg middendor f null, [place] [facility], 7 14:31:06 23714 ibuprofen medicatio n Not available Not available Not available 08/05/2017 5640 RxNorm greg middendor f null, [place] [facility], 7 14:31:15 36885 Levaquin medicatio n Not available Not available Not available 08/05/2017 21632 2 RxNorm greg middendor f null, [place] [facility], 7 14:31:56 58818 Product containin g penicilli n (product) medicatio n Not available Not available Not available 08/05/2017 63066 8001 SNOMED greg rooneyelías benjie null, [place] [facility], [...] Pulse oximetry Respiratory rate Body temperature Systolic And Diastolic Provider Name and Address Organization Details Last Updated DateTime 3 157.48 cm 38.4 kg/m2 84820.4 g 83 /min 95 % 95 % 18 /min 97.3 [degF] 124/72 mm[Hg] son fields [place] [facility], 3 11:40:44 Date Recorded Body height Body mass index (BMI) Body weight Body temperature Systolic And Diastolic Provider Name and Address Organization Details Last Updated DateTime 08/05/2017 160.02 cm 34 kg/m2 90297.7 4 g 98.1 [degF] 112/76 mm[Hg] greg acosta [place] [facility], 7 14:30:04 Social History Question Answer Notes LastModified by Organizat ion Details LastModified Time Tobacco Smoking Status Never Smoker greg wiseman [place] [facility], 08/05/2017 14:32:43 What Was The Date Of Your Most Recent Tobacco Screening? 08/05/2017 [email or web address] Information not available 10/01/2022 Sex: Unknown Functional Status None recorded. Mental Status None recorded. Family History Relationship Description Onset Age of this Age Resolved Age Notes LastModified by Organization Details LastModified Time Father No current problems or disability DM [email or web address] Not available 14:32:36 Mother No current problems or disability STROKE vmiddendorf Not available 14:32:41 Medical History Condition Response Coronary Artery Disease N Gout N Kidney Stones N Hyperthyroidism N Hypothyroidism N Depression N COPD N Stress N Anxiety Disorder N Arthritis N Cancer N Stroke N High Cholesterol N Liver Disease N Fibromyalgia N Kidney Disease N Diabetes N Tuberculosis N Diverticulitis N Asthma N Allergies N GERD/Reflux N Heart Disease N Pulmonary Embolism N Hypertension N Osteoporosis N Gynecological HistoryNo gynecological history recorded. Obstetrics History GPAL:G 0 P 0 0 0 0 Past Encounters Encounter ID Performer Location Encounter Start Date Encounter Closed Date Diagnosis/Indication Diagnosis SNOMED-CT Code Diagnosis ICD10 Code Diagnosis IMO Codes Diagnosis Note [id number] Indra amaya MD OFFICE [address] [place] [phone] 08/05/2017 13:10:56 08/05/2017 18:28:02 Allergy to drug 551073160 T50.905A [id number] Indra amaya MD OFFICE [address] [place], [place] [address] [place] [phone] 10/01/2022 10:46:38 10/01/2022 12:59:40 Allergy to drug 682193664 T50.905A Patient was skin tested to [facility] and failed to show any IgE mediated reaction Health Concerns Section Related Observation LastModified by Organization Detai ls LastModified Time None Recorded Concern Status LastModified by Organization Details LastModified Time None Recorded Advance Directives Directive None Recorded Payers Insurance Date Sequence Insurance Name Policy Number Policy Wright Covered Member ID Wright Member ID Guarantor Name 10/05/2022 2 [id number] [id number] Norma Mejias [id number] Norma Rouseper 09/30/2022 1 [place] Norma L Mejias [id number] Norma Rouseper Notes Date Note Type Note Provider Name [...] whether she is allergic to the biologic. MD [address], [place], [address], [place] [facility], 08/05/2017 19:07:39 [...] today to see if she is allergic. MD [address], [place], [address], [place] [facility], 10/01/2022 16:32:45 OBGyn Episode No OBEpisode recorded.
[2025-06-20 12:25] LABS: Free T4 Free Thyroxine 1.42 ng/dL (0.78-2.19)
[2025-06-20 12:39] LABS: Thyroid Stimulating Hormone 2.300 uIU/mL (0.465-4.680)
== END 2025-06-20 11:07 | disposition home or self-care (01) ==
LOC: ANHLAB 11:07
PROVIDERS: PCP Internal Medicine; Visit Provider Internal Medicine
DX: I10 Essential (primary) hypertension (principal); R73.9 Hyperglycemia, unspecified; E03.9 Hypothyroidism, unspecified; M25.552 Pain in left hip; M25.551 Pain in right hip; E78.00 Pure hypercholesterolemia, unspecified
CPT/HCPCS: 36415; 80053; 80061; 83036; 84439; 84443; 85025